=== PATIENT | female | born 1985 | race Caucasian/White ===

== ENCOUNTER 2019-08-10 11:56 | Emergency (ER) | payer OTHER ==
--- OUTSIDE RECORDS SUMMARY | 2019-08-10 11:57 | XMS REPORT ---
:1985 Author Organization eClinicalWorks Care Team Providers Name Role Phone Estella Jones Provider Role Unavailable Allergies, Adverse Reactions, Alerts Substance Reaction Event Type N.K.D.A. 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, unspecified whether recurrent Problem Encounter for general adult medical Z00.01 Active examination with abnormal findings Problem Acute bilateral low back pain M54.5 Active without sciatica Problem Cough R05 Active Assessment Cough R05 Active Problem Chronic GERD K21.9 Active Problem 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
[2019-08-10] MEDS ORDERED: HYDROCODONE/APAP 10/325 TAB ONE (13:06)
[2019-08-10] MEDS ORDERED: DIAZEPAM 5 MG TABLET ONE (13:06)
[2019-08-10] MEDS ORDERED: predniSONE 20 MG TAB ONE (13:07)
--- NOTE | 2019-08-10 13:45 | EDPHYS ---
Physician Documentation [facility] Name: Tika Ceron Age: 33 yrs Sex: Female : 1985 Arrival Date: 08/10/2019 Time: 12:04 Bed 23 Private MD: ED Physician Lencho Macdonald HPI: 08/10 12:56 This 33 yrs old Female presents to ER via Ambulatory with complaints of Back jmm Pain. 12:56 The patient presents with pain that is acute. Onset: The symptoms/episode jmm began/occurred acutely. The pain radiates to the right leg. Modifying factors: The patient symptoms are alleviated by nothing, the patient symptoms are aggravated by movement. This is a 33 year old female with no chronic medical conditions that presents to the ED with complaints of lower back pain which developed after a coughing fit. Patient states pain radiates down the right leg. Denies bowel or urinary issues. . 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 - Social history:: Smoking status: Patient uses tobacco products, smokes one-half pack cigarettes per day. - Ebola Screening: : Patient negative for fever greater than or equal to 101.5 degrees Fahrenheit, and additional compatible Ebola Virus Disease symptoms Patient denies exposure to infectious person Patient denies travel to an Ebola-affected area in the 21 days before illness onset No symptoms or risks identified at this time. ROS: 12:56 Cardiovascular: Negative for chest pain, palpitations, and edema, Abdomen/GI: Negative jmm for abdominal pain, nausea, vomiting, diarrhea, and constipation. 12:56 Respiratory: Positive for cough. 12:56 Back: Positive for pain at rest. 12:56 MS/extremity: Positive for pain. 12:56 All other systems are negative. Exam: 12:56 Head/Face: atraumatic. Eyes: EOMI, no conjunctival erythema appreciated ENT: Moist jmm Mucus Membranes Neck: Trachea midline, Supple Chest/axilla: Normal chest wall appearance and motion. Cardiovascular: Regular rate and rhythm. No edema appreciated Respiratory: Normal respirations, no respiratory distress appreciated Abdomen/GI: Non distended, soft 12:56 Skin: General appearance color normal MS/ Extremity: Moves all extremities, no obvious deformities appreciated, no edema noted to the lower extremities Neuro: Awake and alert, normal gait Psych: Behavior is normal, Mood is normal, Patient is cooperative and pleasant 12:56 Constitutional: The patient appears alert, awake, uncomfortable. 12:56 Back: muscle spasm, is appreciated in the right low back. Vital Signs: 12:12 BP 131 / 94; Pulse 97; Resp 16; Temp 97.4; Pulse Ox 98% on R/A; Weight 76.66 kg; Height iw 5 ft. 8 in. (172.72 cm); Pain 9/10; 13:21 BP 136 / 89; Pulse 84; Resp 16; Pulse Ox 99% on R/A; sr5 14:00 Pulse 81; Resp 16; Pulse Ox 98% on R/A; Pain 3/10; sr5 12:12 Body Mass Index 25.70 (76.66 kg, 172.72 cm) iw MDM: 12:51 Patient medically screened. [facility] 13:44 Data reviewed: vital signs, nurses notes. Counseling: I had a detailed discussion with zeeshan the patient and/or guardian regarding: the historical points, exam findings, and any diagnostic results supporting the discharge/admit diagnosis, lab results, the need for outpatient follow up, to return to the emergency department if symptoms worsen or persist or if there are any questions or concerns that arise at home. ED course: Pain relieved in the ED. patient advised to follow up with pcp and otherwise given strict return precautions. patient understood and agrees with the plan of care. I do not suspect cord compression or cauda equina. . 08/10 13:23 Order name: Urine Dipstick--Ancillary (enter results); Complete Time: 13:47 sr5 08/10 13:23 Order name: Urine --Ancillary (enter results); Complete Time: 13:47 sr5 08/10 12:54 Order name: Urine Dipstick-Ancillary (obtain specimen); Complete Time: 13:21 [facility] 08/10 12:54 Order name: Urine Test (obtain specimen); Complete Time: 13:21 [facility] Administered Medications: 13:09 Drug: [place] 10 mg-325 mg 1 tabs Route: PO; sr5 14:18 Follow up: Response: Pain is decreased sr5 13:09 Drug: Valium 5 mg Route: PO; sr5 14:18 Follow up: Response: Pain is decreased sr5 13:09 Drug: predniSONE 60 mg Route: PO; sr5 14:17 Follow up: Response: No adverse reaction sr5 Disposition: 08/11 07:19 Co-signature as Attending Physician, Lencho Macdonald MD I agree with the assessment and kdr plan of care. Disposition: 08/10/19 13:45 Discharged to Home. Impression: Muscle spasm of back, Sciatica, right side. - Condition is Stable. - Discharge Instructions: Muscle Cramps and Spasms, Sciatica. - Prescriptions for Ultracet 37.5- 325 mg Oral Tablet - take 1 tablet by ORAL route every 6 hours - for up to 5 days; do not exceed 8 tablets per day.; 12 tablet. Zanaflex 4 mg Oral Tablet - take 1 tablet by ORAL route every 8 hours As needed; 20 tablet. Prednisone 20 mg Oral Tablet - take 3 tablet by ORAL route once daily for 5 days; 15 tablet. - Medication Reconciliation Form, Thank You Letter, Antibiotic Education, Prescription Opioid Use, Work release form form. - Follow up: Private Physician; When: 2 - 3 days; Reason: Recheck today's complaints, Continuance of care, Re-evaluation by your physician. Signatures: Dispatcher [employer] EDMS Lencho Macdonald MD MD kdr Mickail, Joel, PA PA jmm Williams, Irene, RN Dmitri Maynard RN RN sr5 Corrections: (The following items were deleted from the chart) 08/10 12:55 12:53 IV Saline Lock ordered. zeeshan byers 13:48 13:44 ED course: Pain relieved in the ED. patient advised to follow up with pcp and jmm otherwise given strict return precautions. patient understood and agrees with the plan of care. . zeeshan 14:01 13:45 08/10/2019 13:45 Discharged to Home. Impression: Muscle spasm of back; Sciatica, sr5 right side. Condition is Stable. Forms are Medication Reconciliation Form, Thank You Letter, Antibiotic Education, Prescription Opioid Use. Follow up: Private Physician; When: 2 - 3 days; Reason: Recheck today's complaints, Continuance of care, Re-evaluation by your physician. zeeshan
--- NOTE | 2019-08-10 13:45 | ER ---
Nurse's Notes [facility] Name: Tika Ceron Age: 33 yrs Sex: Female : 1985 Arrival Date: 08/10/2019 Time: 12:04 Bed 23 Private MD: Diagnosis: Muscle spasm of back;Sciatica, right side Presentation: 08/10 12:10 Presenting complaint: Patient states: thinks she pulled muscle in lower back from iw coughing, has been on albuterol and muscle relaxer for back , and pain not improving. Transition of care: patient was not received from another setting of care. Onset of symptoms was July 24, 2019. Risk Assessment: Do you want to hurt yourself or someone else? Patient reports no desire to harm self or others. Initial Sepsis Screen: Does the patient meet any 2 criteria? No. Patient's initial sepsis screen is negative. Does the patient have a suspected source of infection? No. Patient's initial sepsis screen is negative. Care prior to arrival: None. 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 - Social history:: Smoking status: Patient uses tobacco products, smokes one-half pack cigarettes per day. - Ebola Screening: : Patient negative for fever greater than or equal to 101.5 degrees Fahrenheit, and additional compatible Ebola Virus Disease symptoms Patient denies exposure to infectious person Patient denies travel to an Ebola-affected area in the 21 days before illness onset No symptoms or risks identified at this time. Screenin:10 Abuse screen: Denies threats or abuse. Nutritional screening: No deficits noted. sr5 Tuberculosis screening: No symptoms or risk factors identified. Fall Risk None identified. Assessment: 13:10 Reassessment: Pt ambulated to restroom to collect UA. Pain: Complains of pain in right sr5 low back and right leg. Neuro: Level of Consciousness is awake, alert, obeys commands, Oriented to person, place, time, situation, Motion Picture Scene Builder are equal bilaterally Moves all extremities. Gait is slow to change positions, groans, bent forward at hips. Cardiovascular: No deficits noted. Respiratory: No deficits noted. GI: No signs and/or symptoms were reported involving the gastrointestinal system. : No signs and/or symptoms were reported regarding the genitourinary system. EENT: No signs and/or symptoms were reported regarding the EENT system. Derm: No signs and/or symptoms reported regarding the dermatologic system. Musculoskeletal: Reports reports pulled muscle in back. 14:00 Reassessment: Pt remains AA\\T\\Ox4, equal unlabored resp, skin warm/dry/nc, reports pain sr5 "much better". Steady gait out of ER with friend. Vital Signs: 12:12 BP 131 / 94; Pulse 97; Resp 16; Temp 97.4; Pulse Ox 98% on R/A; Weight 76.66 kg; Height iw 5 ft. 8 in. (172.72 cm); Pain 9/10; 13:21 BP 136 / 89; Pulse 84; Resp 16; Pulse Ox 99% on R/A; sr5 14:00 Pulse 81; Resp 16; Pulse Ox 98% on R/A; Pain 3/10; sr5 12:12 Body Mass Index 25.70 (76.66 kg, 172.72 cm) iw ED Course: 12:04 Patient arrived in ED. mr 12:12 Triage completed. iw 12:12 Arm band placed on. iw 12:31 Dmitri Kovacs, RN is Primary Nurse. sr5 12:32 Julio Shaffer PA is PHCP. [facility] 12:32 Lencho Macdonald MD is Attending Physician. [facility] 13:10 Patient has correct armband on for positive identification. Placed in gown. Bed in low sr5 position. Call light in reach. 13:10 No provider procedures requiring assistance completed. Patient did not have IV access sr5 during this emergency room visit. 13:10 Urine collected: clean catch specimen, clear. sr5 Administered Medications: 13:09 Drug: [place] 10 mg-325 mg 1 tabs Route: PO; sr5 14:18 Follow up: Response: Pain is decreased sr5 13:09 Drug: Valium 5 mg Route: PO; sr5 14:18 Follow up: Response: Pain is decreased sr5 13:09 Drug: predniSONE 60 mg Route: PO; sr5 14:17 Follow up: Response: No adverse reaction sr5 Outcome: 13:45 Discharge ordered by MD. byers 14:00 Discharged to home ambulatory, with family. sr5 14:00 Condition: stable 14:00 Discharge instructions given to patient, friend, Instructed on discharge instructions, follow up and referral plans. medication usage, Demonstrated understanding of instructions, follow-up care, medications, Prescriptions given X 3. 14:01 Patient left the ED. sr5 Signatures: Julio Shaffer PA PA jmm Rivera, Mary mr Williams, Irene, RN RN Dmitri Muniz RN RN sr5
[2019-08-10 13:47] LABS: Urine Blood NEGATIVE (NEG); Urine Glucose NEGATIVE (NEG); Urine Protein NEGATIVE (NEG); Urine Specific Gravity 1.025 (1.005-1.030); Urine pH 5.5 (5.0-7.0)
[2019-08-10 14:15] VITALS: TEMP 97.4
[2019-08-10 14:16] VITALS: BP 136/89; O2SAT 99
== END 2019-08-10 14:01 | disposition home or self-care (01) ==
LOC: ER 11:56
DX: M54.31 Sciatica, right side (principal); M62.830 Muscle spasm of back; F17.210 Nicotine dependence, cigarettes, uncomplicated
CPT/HCPCS: 81025; 81003; 99283; J7512

== ENCOUNTER 2019-11-26 07:17 | Day surgery (SDC) | payer BC ==
--- OUTSIDE RECORDS SUMMARY | 2019-11-26 07:36 | XMS REPORT ---
[...] End Status Dosage System Date Date Omeprazole [facility] 25411277379 40 MG Orally Aug 08, Active 1 capsule Once a day 2018 30 minutes before morning meal Methocarbamol ND 05991999314 500 MG Orally Aug 08, Aug 15, Active 1 tablet every 8 hrs 2018 2019 for muscle pain Albuterol Sulfate ND 35728064738 0.63 MG/3ML Aug 08, Active 3 ml as Inhalation 2019 needed every 6 hrs Results No Known Results Summary Purpose eClinicalWorks Submission
--- OUTSIDE RECORDS SUMMARY | 2019-11-26 07:36 | XMS REPORT ---
:1985 Author Organization eClinicalWorks Care Team Providers Name Role Phone Estella Jones Provider Role Unavailable Allergies, Adverse Reactions, Alerts Substance Reaction Event Type N.K.D.A. 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, unspecified whether recurrent Problem Cough R05 Active Problem Acute bilateral low back pain M54.5 Active without sciatica Medications Medication Code Code Instructions Start End Status Dosage System Date Date Albuterol Sulfate ND 90864592467 0.63 MG/3ML Aug 08, Active 3 ml as Inhalation 2019 needed every 6 hrs Omeprazole ND 54348855087 40 MG Orally Aug 08, Active 1 capsule Once a day 2019 30 minutes before morning meal Methocarbamol ND 06112018049 500 MG Orally Aug 08, Aug 15, Active 1 tablet every 8 hrs 2018 2018 for muscle pain Albuterol Sulfate ND 35411399079 108 (90 Base) Aug 15, Active 2 puffs as HFA MCG/ACT 2019 needed Inhalation every 6 hrs Results No Known Results Summary Purpose eClinicalWorks Submission
--- OUTSIDE RECORDS SUMMARY | 2019-11-26 07:36 | XMS REPORT ---
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
--- OUTSIDE RECORDS SUMMARY | 2019-11-26 07:36 | XMS REPORT ---
:1985 Author Organization eClinicalWorks Care Team Providers Name Role Phone Estella Jones Provider Role Unavailable Allergies, Adverse Reactions, Alerts Substance Reaction Event Type N.K.D.A. Info Not Available Non Drug Allergy Problems Problem Type Condition Code Onset Dates Condition Status Assessment Gynecologic exam normal Z01.419 Active Problem Current severe episode of major [...] Z00.01 Active examination with abnormal findings Medications Medication Code Code Instructions Start End Status Dosage System Date Date Clonazepam ND 03883617191 0.25 MG Orally Active 1 tablet as needed BuPROPion HCl ND 38163511581 75 MG Orally Active 1 tablet once a day Albuterol ND 40807138021 0.63 MG/3ML Aug 08, Active 3 ml as Sulfate Inhalation 2019 needed every 6 hrs Trazodone HCl ND 21352612196 50 MG Orally Active 1 tablet Once a day at bedtime Albuterol [facility] 36472119868 108 (90 Base) Aug 15, Active 2 puffs as Sulfate HFA MCG/ACT 2019 needed Inhalation every 6 hrs Citalopram ND 13522237828 20 MG Orally Active 1 tablet Hydrobromide Once a day Omeprazole ND 83788165109 40 MG Orally Aug 08, Active 1 capsule Once a day 2019 30 minutes before morning meal Results No Known Results Summary Purpose eClinicalWorks Submission
--- OUTSIDE RECORDS SUMMARY | 2019-11-26 07:37 | XMS REPORT ---
:1985 Author Organization eClinicalWorks Care Team Providers Name Role Phone Estella Jones Provider Role Unavailable Allergies, Adverse Reactions, Alerts Substance Reaction Event Type N.K.D.A. Info Not Available Non Drug Allergy Problems Problem Type Condition Code Onset Dates Condition Status Problem Current severe episode of major F32.2 Active depressive disorder without psychotic features, unspecified whether recurrent Problem Acute bilateral low back pain M54.5 Active without sciatica Problem Chronic GERD K21.9 Active Assessment Atypical squamous cells cannot R87.611 Active exclude high grade squamous intraepithelial lesion on cytologic smear of cervix (ASC-H) Assessment Hypercholesteremia E78.00 Active Problem Atypical squamous cells cannot R87.611 Active exclude high grade squamous intraepithelial lesion on cytologic smear of cervix (ASC-H) Problem Gynecologic exam normal Z01.419 Active Problem Hypercholesteremia E78.00 Active Problem Cough R05 Active Problem Encounter for general adult medical Z00.01 Active examination with abnormal findings Problem Pure hypercholesterolemia E78.00 Active Problem Smoker F17.200 Active Medications Medication Code Code Instructions Start End Status Dosage System Date Date BuPROPion HCl [facility] 90138758298 75 MG Orally Active 1 tablet once a day Pravastatin ND 38964513836 10 MG Orally Oct 03, Active 1 tablet Sodium Once a day 2019 Albuterol [facility] 05513604079 108 (90 Base) Aug 15, Active 2 puffs as Sulfate HFA MCG/ACT 2018 needed Inhalation every 6 hrs Albuterol ND 23194803048 0.63 MG/3ML Aug 08, Active 3 ml as Sulfate Inhalation 2019 needed every 6 hrs Clonazepam ND 08576492178 0.25 MG Orally Active 1 tablet as needed Trazodone HCl ND 37907193967 50 MG Orally Active 1 tablet Once a day at bedtime Omeprazole ND 55590615307 40 MG Orally Aug 08, Active 1 capsule Once a day 2018 30 minutes before morning meal Citalopram ND 54238860683 20 MG Orally Active 1 tablet Hydrobromide Once a day Results No Known Results Summary Purpose eClinicalWorks Submission
--- OUTSIDE RECORDS SUMMARY | 2019-11-26 07:37 | XMS REPORT ---
[...] sciatica Problem Chronic GERD K21.9 Active Assessment Chronic GERD K21.9 Active Problem Atypical squamous cells cannot R87.611 Active exclude high grade squamous intraepithelial lesion on cytologic smear of cervix (ASC-H) Problem Gynecologic exam normal Z01.419 Active Problem Hypercholesteremia E78.00 Active Problem Cough R05 Active Problem Encounter for general adult medical Z00.01 Active examination with abnormal findings Problem Pure hypercholesterolemia E78.00 Active Problem Smoker F17.200 Active Medications Medication Code System Code Instructions Start End Date Status Dosage Date Omeprazole [facility] 96143292591 40 MG Orally Aug 08, Active 1 capsule Once a day 2018 30 minutes before morning meal Results No Known Results Summary Purpose eClinicalWorks Submission
[2019-11-26] MEDS ORDERED: Ringers Lactate 1,000 ML IV ONE (07:40)
[2019-11-26] MEDS ORDERED: LIDOCAINE 1% W/EPI 1:100,000 MDV 20 ML VIAL ONE ×2 (07:45→09:41)
[2019-11-26] MEDS ORDERED: ACETIC ACID 0.25% IRRIG IRR ONE (08:00)
[2019-11-26] MEDS ORDERED: NA CHLORIDE 0.9% 0 ML IV ONE (08:03)
[2019-11-26] MEDS ORDERED: VASOPRESSIN 20 UNIT/ML VIAL ONE (08:04)
[2019-11-26] MEDS ORDERED: LIDOCAINE 2% MPF 5 ML VIAL ONE (08:19)
[2019-11-26] MEDS ORDERED: FENTANYL CITR 100 MCG/2 ML ONE ×2 (08:19→09:17)
[2019-11-26] MEDS ORDERED: propofoL 200 MG/20 ML VIAL IV ONE ×2 (08:19→09:17)
[2019-11-26] MEDS ORDERED: MIDAZOLAM HCL 2 MG/2 ML INJ ONE ×2 (08:19→09:17)
[2019-11-26] MEDS ORDERED: LIDOCAINE 1% MPF 5 ML VIAL ONE (09:17)
[2019-11-26] MEDS ORDERED: KETOROLAC 30 MG/ML INJ ONE (09:44)
[2019-11-26] MEDS ORDERED: ONDANSETRON 4 MG/2 ML VIAL ONE ×2 (10:01→11:07)
[2019-11-26] MEDS: MEPERIDINE HCL 25 MG/ML SYR ONE ×2 (11:05→11:11)
[2019-11-26] MEDS: MORPHINE 4 MG/ML SYR ONE ×2 (11:08→11:14)
[2019-11-26 11:17] VITALS: O2SAT 97
[2019-11-26 11:55] VITALS: BP 123/84; TEMP 97.6
[2019-11-26] MEDS ORDERED: HYDROCODONE/APAP 5/325 MG TAB ONE (12:02)
--- NOTE | 2019-11-26 20:35 | OP ---
Date of Procedure: 11/26/2019 Surgeon: Terri Giron MD Preoperative Diagnosis: Cervical intraepithelial neoplasia grade 3 with positive endocervical curett age. Postoperative Diagnosis: Cervical intraepithelial neoplasia grade 3 with positive endocervical curet tage. Procedure Performed: Cervical colposcopy, cold knife cone and endocervical curettage. Anesthesia: General with LMA. Specimens: Cold cone biopsy with endocervical curettage stitch at 12 o'clock and a small outer vanessa n at 12 o'clock position after the colon was excised. Complications: None. Drains: None. Condition: Stable. Indications: The patient is a 34-year-old with high-grade CRYSTAL Pap smear. Colposcopy in the office w as performed. She had a lesion at 12 o'clock that was thick, acetowhite, and the lesion was extendin g into the cervical canal. The inner extent was not visible. At 3 o'clock position, there was mild acetowhite epithelium. The biopsies were consistent with observation and colposcopy. 12 o'clock was EDUARDO 3 and 3 o'clock was a EDUARDO 1. The endocervical curettage was positive; however, suspicion is slava t the extension of the lesion at 12 o'clock was the reason why the ECC was positive. So, the patient was counseled on her options of either a LEEP electroexcision procedure or a cold knife cone. All t he benefits and risks, including the risks of with regard to subsequent pregnancies with cervical ins ufficiency, labor and loss were all reviewed with the patient. 6% to 8% risk was quo kae for post cold knife cone risk. Then, she was offered a LEEP procedure in contrast to t hat. The patient proceeded to consent for a cold knife cone, so she was consented and taken to the O R. She is a smoker. Cessation was reviewed with the patient. Description Of Operation: After re-consenting the patient in the preop, she was taken back to OR, pl aced in supine fashion on the operating table. General anesthesia given, placed in a dorsal lithotom y position using Julian stirrups. Colposcopy was performed with a speculum. Acetic acid was applied. It was difficult to visualize the aceto white epithelium due to the most recent biopsy and the heal ing subsequent to it. However, when dyed with Lugol iodine, it was very clear the outer margin of th e transformation zone. Once the cervix was sounded for length, it was found to be 4 cm, then plan wa s made to attempt a depth of 2 cm or less and be able to take a cone in the direction of the canal. Prep with Betadine was done at 3 and 9 o'clock positions after the paracervical block with 1% lidocai ne mixed with 1:100,000 epinephrine, 20 cc was injected. 0 Vicryl sutures were placed, stay sutures, for hemostasis and for retraction, placed in those positions and tied down and held with hemostats. Then, the cold knife cone knife handle was taken with an 11 blade and the incision started at 3 o'cl ock and taken all the way around in a circumferential fashion paying attention to the direction of th e cervical canal. The cone was performed. The base of the cone was severed with the help of a knife and Tereso scissors. This way is labeled as dictated 12 o'clock with a silk stitch; and then out er margin at 12 o'clock, I took a small outer piece of cervix just to make sure that this margin was clear. All these were placed in a specimen cup. There was good hemostasis at the base. 0 Vicryl amaya ture was taken on a CT 1 needle and using the Lecere needle ambulance driver paramedic circumferential running locked mod ified Sturmdorf stitch was placed and this was tied at 3 o'clock. The base of the cone was then visu alized. Good hemostasis was ensured. ECC was performed with a Kevorkian curette and endocervical br ush was used to collect the rest of the specimen. Then, astringent was placed with the help of Scope ttes on the base of the cone for 1 minute each. There was excellent hemostasis after this was done a nd removed. The vaginal area was cleaned up. Speculum removed. Instrument, needle and sponge count s were done and were correct at the end of the case. The stay sutures were trimmed with short tails and left in place. She was recovered from anesthesia and taken to PACU in stable condition. She will follow up with me in 1 albert NAGEL/CORI Voice ID: [id number] Report ID: [id number]
== END 2019-11-26 12:42 | disposition home or self-care (01) ==
LOC: OR 07:17
PROVIDERS: ATTEND Obstetrics & Gynecology
PROC: 0UBC8ZX Excision of Cervix, Via Natural or Artificial Opening Endoscopic, Diagnostic (ICD-10-PCS; principal; 2019-11-26 08:30)
DX: D06.0 Carcinoma in situ of endocervix (principal); N94.6 Dysmenorrhea, unspecified; K21.9 Gastro-esophageal reflux disease without esophagitis; F41.9 Anxiety disorder, unspecified; F32.9 Major depressive disorder, single episode, unspecified; F17.210 Nicotine dependence, cigarettes, uncomplicated; Z83.3 Family history of diabetes mellitus; Z82.3 Family history of stroke
CPT/HCPCS: 36415; 84703; 88305; 88307; 57520; J2704; J2250; J3010; J2175; J7120; J2405 ×2

== ENCOUNTER 2019-12-31 09:49 | Emergency (ER) | payer BC ==
--- OUTSIDE RECORDS SUMMARY | 2019-12-31 09:50 | XMS REPORT ---
:1985 Author Organization [employer] Care Team Providers Name Role Phone Estella Jones Provider Role Unavailable Allergies, Adverse Reactions, Alerts Substance Reaction Event Type N.K.D.A. Info Not Available Non Drug Allergy Problems Problem Type Condition Code Onset Dates Condition Statu s Assessment Encounter for general adult medical Z00.01 [...] End Status Dosage System Date Date Omeprazole ND 66089129738 40 MG Orally Aug 08, Active 1 ca psule Once a day 2018 30 minutes before morning meal Methocarbamol ND 74495686491 500 MG Orally Aug 08, Aug 15, Active 1 tablet every 8 hrs 2018 2019 for muscle pain Albuterol Sulfate ND 48402791697 0.63 MG/3ML Aug 08, Active 3 ml as Inhalation 2019 needed every 6 hrs Results No Known Results Summary Purpose eClinicalWorks Submission
--- OUTSIDE RECORDS SUMMARY | 2019-12-31 09:51 | XMS REPORT ---
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, unspecified whether recurrent Problem Acute bilateral low back pain M54.5 Active without sciatica Problem Chronic GERD K21.9 Active Assessment Chronic GERD K21.9 Active Problem Atypical squamous cells cannot R87.611 Active exclude high grade squamous intraepithelial lesion on cytologic smear of cervix (ASC-H) Problem Gynecologic exam normal Z01.419 Acti ve Problem Hypercholesteremia E78.00 Active Problem Cough R05 Active Problem Encounter for general adult medical Z00.01 Active examination with abnormal findings Problem Pure hypercholesterolemia E78.00 Ac tive Problem Smoker F17.200 Active Medications Medication Code System Code Instructions Start End Date Status Dos age Date Omeprazole [facility] 72283662135 40 MG Orally Aug 08, Active 1 ca psule Once a day 2018 30 minutes before morning meal Results No Known Results Summary Purpose eClinicalWorks Submission
--- OUTSIDE RECORDS SUMMARY | 2019-12-31 09:51 | XMS REPORT ---
:1985 Author Organization e[employer]Works Care Team Providers Name Role Phone Estella Jones Provider Role Unavailable Allergies, Adverse Reactions, Alerts Substance Reaction Event Type N.K.D.A. Info Not Available Non Drug Allergy Problems Problem Type Condition Code Onset Dates Condition Statu s Assessment Smoker F17.200 Active Assessment Pure hypercholesterolemia E78.00 Ac tive Problem Pure hypercholesterolemia E78.00 Ac tive Problem Encounter for general adult medical Z00.01 [...] Status Dosage System Date Date Albuterol Sulfate [facility] 91410587689 0.63 MG/3ML Aug 08, Active 3 ml as Inhalation 2019 needed every 6 hrs Omeprazole NDC 04699439309 40 MG Orally Aug 08, Active 1 ca psule Once a day 2019 30 minutes before morning meal Methocarbamol ND 62813950123 500 MG Orally Aug 08, Aug 15, Active 1 tablet every 8 hrs 2018 2019 for muscle pain Albuterol Sulfate ND 66464332510 108 (90 Base) Aug 15, Acti ve 2 puffs as HFA MCG/ACT 2019 needed Inhalation every 6 hrs Results No Known Results Summary Purpose eClinicalWorks Submission
--- OUTSIDE RECORDS SUMMARY | 2019-12-31 09:51 | XMS REPORT ---
:1985 Author Organization [facility] t Address [address] [place] [address] Care Team Providers Name Role Phone Unavailable Unavailable Unavailable Problems Condition Condition Condition Status Onset Resolution Last Treatin g Comments Name Details Category Date Date Treatment Clinician Date Encounter Encounter Problem Active for general for general adult adult medical medical examination examination with with abnormal abnormal findings findings Chronic Chronic Diagnosis Active GERD GERD Acute Acute Problem Active bilateral bilateral low back low back pain pain without without sciatica sciatica Current Current Problem Active severe severe episode of episode of major major depressive depressive disorder disorder without without psychotic psychotic features, features, unspecified unspecified whether whether recurrent recurrent Cough Cough Problem Active Smoker Smoker Problem Active Pure Pure Problem Active hypercholes hypercholes terolemia terolemia Gynecologic Gynecologic Problem Active exam normal exam normal Atypical Atypical Problem Active squamous squamous cells cells cannot cannot exclude exclude high grade high grade squamous squamous intraepithe intraepithe lial lesion lial lesion on on cytologic cytologic smear of smear of cervix cervix (ASC-H) (ASC-H) Allergies, Adverse Reactions, Alerts This patient has no known allergies or adverse reactions. Medications Ordered Filled Start Stop Current Ordering Indication Dosage Frequency Signature Comments Components Medication Medication Date Date Medication? Clinician (SIG) Name Name Omeprazole Omeprazole 2018-09 Yes Estella 1 capsul e 2-05 Jones 30 minutes 00:00: before 00 morning meal Encounters Start End Encounter Admission Attending Care Care Encounter Date/Time Date/Time Type Type Clinicians Facility Department ID 2019-10-08 2019-10-08 [facility] [id number] 13:23:00 13:23:00 [facility] Medicine Medicine 2019 2019 [facility] [id number] 13:00:00 13:00:00 [facility] Medicine Medicine 2019-10-01 2019-10-01 [facility] [id number] 15:51:00 15:51:00 [facility] 2019-09-24 2019-09-24 [facility] [id number] 15:00:00 15:00:00 [facility] 2019-08-15 2019-08-15 [facility] [id number] 15:20:00 15:20:00 [facility] 2019-08-08 2019-08-08 [facility] [id number] 11:20:00 11:20:00 [facility]
--- OUTSIDE RECORDS SUMMARY | 2019-12-31 09:51 | XMS REPORT ---
[...] Status Dosage System Date Date BuPROPion HCl ND 58491972349 75 MG Orally Active 1 tablet once a day Pravastatin ND 54778961261 10 MG Orally Oct 03, Active 1 t ablet Sodium Once a day 2019 Albuterol [facility] 06605472508 108 (90 Base) Aug 15, Active 2 pu ffs as Sulfate HFA MCG/ACT 2018 needed Inhalation every 6 hrs Albuterol ND 39287728567 0.63 MG/3ML Aug 08, Active 3 ml a s Sulfate Inhalation 2018 needed every 6 hrs Clonazepam ND 78353322950 0.25 MG Orally Active 1 tablet as needed Trazodone HCl ND 72034665131 50 MG Orally Active 1 tablet Once a day at bedtime Omeprazole ND 43280936150 40 MG Orally Aug 08, Active 1 ca psule Once a day 2018 30 minutes before morning meal Citalopram ND 82603530424 20 MG Orally Active 1 ta blet Hydrobromide Once a day Results No Known Results Summary Purpose eClinicalWorks Submission
--- OUTSIDE RECORDS SUMMARY | 2019-12-31 09:51 | XMS REPORT ---
:1985 Author Organization eClinicalWorks Care Team Providers Name Role Phone Estella Jones Provider Role Unavailable Allergies, Adverse Reactions, Alerts Substance Reaction Event Type N.K.D.A. 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, unspecified whether recurrent Problem Pure hypercholesterolemia E78.00 Ac tive Problem Smoker F17.200 Active Problem Gynecologic exam normal Z01.419 Acti ve Problem Acute bilateral low back pain M54.5 Active without sciatica Problem Chronic GERD K21.9 Active Problem Cough R05 Active Problem Encounter for general adult medical Z00.01 Active examination with abnormal findings Medications Medication Code Code Instructions Start End Status Dosage System Date Date Clonazepam ND 00460285395 0.25 MG Orally Active 1 tablet as needed BuPROPion HCl ND 62955921437 75 MG Orally Active 1 tablet once a day Albuterol ND 62173636724 0.63 MG/3ML Aug 08, Active 3 ml a s Sulfate Inhalation 2019 needed every 6 hrs Trazodone HCl ND 95616790243 50 MG Orally Active 1 tablet Once a day at bedtime Albuterol [facility] 25507142131 108 (90 Base) Aug 15, Active 2 pu ffs as Sulfate HFA MCG/ACT 2019 needed Inhalation every 6 hrs Citalopram ND 76666219014 20 MG Orally Active 1 ta blet Hydrobromide Once a day Omeprazole ND 77861872220 40 MG Orally Aug 08, Active 1 ca psule Once a day 2019 30 minutes before morning meal Results No Known Results Summary Purpose eClinicalWorks Submission
[2019-12-31] MEDS ORDERED: NA CHLORIDE 0.9% 1,000 ML ONE (10:15)
[2019-12-31] MEDS ORDERED: ONDANSETRON 4 MG/2 ML VIAL ONE (10:15)
[2019-12-31 10:21] LABS: Absolute Lymphocytes (CBC) 1.2 K/uL (0.7-4.9); Basophils % 0.4 % (0-1.3); Hematocrit 45.3 % (36.0-45.0); Lymphocytes % 11.2 % (15.3-44.8); MPV 8.3 fL (7.6-11.3); RBC Red Blood Cell Count 4.79 M/uL (3.86-4.86)
[2019-12-31 10:40] LABS: ALT/SGPT 76 U/L (12-78); AST/SGOT 69 U/L (15-37); Albumin 4.2 g/dL (3.4-5.0); Alkaline Phosphatase 88 U/L (45-117); BUN Blood Urea Nitrogen 12 mg/dL (7-18); Bicarbonate 20 mmol/L (21-32); Bilirubin Direct 0.2 mg/dL (0-0.2); Bilirubin Total 0.6 mg/dL (0.2-1.0); Glucose Level 66 mg/dL (74-106); Lipase 71 U/L (73-393); Potassium 3.8 mmol/L (3.5-5.1); Protein, Total 7.7 g/dL (6.4-8.2); Sodium Level 137 mmol/L (136-145)
[2019-12-31] MEDS ORDERED: MORPHINE 4 MG/ML SYR ONE (11:06)
[2019-12-31 11:36] LABS: Urine Blood TRACE (NEG); Urine Glucose NEGATIVE (NEG); Urine Protein TRACE (NEG); Urine Specific Gravity >1.030 (1.005-1.030); Urine pH 5.5 (5.0-7.0)
--- NOTE | 2019-12-31 11:44 | RAD REPORT ---
EXAM DESCRIPTION: CT - Abdomen Pelvis W Contrast - 12/31/2019 11:12 am CLINICAL HISTORY: ABD PAIN, bilateral back pain, suprapubic pain, fever, prior COMPARISON: No comparisons TECHNIQUE: Biphasic, helical CT imaging of the abdomen and pelvis was performed following 100 ml non -ionic IV contrast. No oral contrast was administered. All CT scans are performed using dose optimization technique as appropriate and may include automated exposure control or mA/KV adjustment according to patient size. FINDINGS: No suspicious findings in the lung bases. Diffuse fatty infiltration of a normal size liver present. No focal liver lesion. No portal vein or h epatic vein abnormality seen. Spleen and pancreas show no suspicious findings. Gallbladder and biliar y tree are also without suspicious finding. Renal function is symmetric with no hydronephrosis. No pyelonephritis findings. No obstructing or non obstructing calculi identified. A 9 mm cyst is present in the lower pole left kidney. There is a 12 m illimeter exophytic mass in the lower pole kidney. This does not show a cyst attenuation value but ma y be a high protein content cyst. Bladder is fully contracted precluding accurate assessment of cysti tis. No bladder calculi. No adrenal abnormalities. Uterus shows no suspicious finding. No ovarian abnormality seen. No dilated bowel loops or bowel wall thickening. No active GI process identified. No free air, free f luid or inflammatory stranding. No hernia, mass or bulky lymphadenopathy. No acute bone findings seen. There is slight narrowing of the L5-S1 disc level with posterior endplat e spurring. IMPRESSION: No pyelonephritis or acute renal parenchymal process seen. Urinary bladder is fully cont racted precluding any evaluation of cystitis. A 12 millimeter exophytic mass projects from the lower pole of the left kidney. This is probably a hi gh protein content cysts. This can be further evaluated with follow-up outpatient sonography. Diffuse fatty infiltration of the liver. No significant GI finding identifiable. Mild enteritis ayoub ges can be CT occult.
--- NOTE | 2019-12-31 11:58 | ER ---
Nurse's Notes [facility] Name: Tika Ceron Age: 34 yrs Sex: Female : 1985 Arrival Date: 12/31/2019 Time: 09:52 Bed 7 Private MD: Diagnosis: Abdominal and pelvic pain Presentation: 12/30 09:58 Chief complaint: Patient states: sent by her PCP, stated she has been having levy back sv pain, suprapubic pain, n/v/d/chills, decreased urinary frequency, orange colored urine x 3-4 days. Had blood work done here yesterday. Coronavirus screen: Proceed with normal triage. Patient denies a cough. Patient denies shortness of breath or difficulty breathing. Patient reports a measured and/or subjective temperature greater than 100.4F. Patient denies travel on a cruise ship or to a country the [facility] currently lists as an affected area. Patient denies contact with known and/or suspected case of COVID-19. Ebola Screen: No symptoms or risks identified at this time. Initial Sepsis Screen: Does the patient meet any 2 criteria? HR > 90 bpm. No. Patient's initial sepsis screen is negative. Does the patient have a suspected source of infection? Yes: Dysuria/Frequency/Urgency/UTI. Risk Assessment: Do you want to hurt yourself or someone else? Patient reports no desire to harm self or others. Onset of symptoms was December 27, 2019. 09:58 Method Of Arrival: Ambulatory sv 09:58 Acuity: MONIQUE 3 sv Triage Assessment: 09:58 General: Appears in no apparent distress. uncomfortable, well developed, Behavior is sv calm, cooperative, appropriate for age. Pain: Complains of pain in suprapubic area, posterior aspect of right lateral abdomen and posterior aspect of left lateral abdomen Pain currently is 7 out of 10 on a pain scale. Pain began 3-4 days ago Is continuous. Neuro: Level of Consciousness is awake, alert, obeys commands, Oriented to person, place, time, situation, Gait is steady. Respiratory: Respiratory effort is even, unlabored, Respiratory pattern is regular, symmetrical. GI: Reports diarrhea, nausea, vomiting. : Reports pain in bilateral in suprapubic area in lower back with urination, decreased urinary frequency. Derm: Skin is pink, warm \T\ dry. Historical: - Allergies: 10:00 No Known Allergies; sv - PMHx: 10:00 None; sv - PSHx: 10:00 ; sv - Immunization history:: Adult Immunizations up to date. Screenin:01 Abuse screen: Denies threats or abuse. Denies injuries from another. Nutritional sv screening: No deficits noted. Tuberculosis screening: No symptoms or risk factors identified. Fall Risk None identified. Assessment: 11:07 Reassessment: Patient appears in no apparent distress at this time. No changes from sv previously documented assessment. Patient and/or family updated on plan of care and expected duration. Pain level reassessed. Patient is alert, oriented x 3, equal unlabored respirations, skin warm/dry/pink. 12:40 Reassessment: Patient appears in no apparent distress at this time. Patient and/or sv family updated on plan of care and expected duration. Pain level reassessed. Patient is alert, oriented x 3, equal unlabored respirations, skin warm/dry/pink. Vital Signs: 09:58 BP 126 / 100; Pulse 102; Resp 18; Temp 98.3(O); Pulse Ox 97% ; Weight 72.57 kg; Height sv 5 ft. 8 in. (172.72 cm); Pain 7/10; 10:45 BP 128 / 99; Pulse 97; Resp 18; Pulse Ox 100% ; sv 11:50 BP 122 / 88; Pulse 92; Resp 18; Pulse Ox 99% ; sv 09:58 Body Mass Index 24.33 (72.57 kg, 172.72 cm) sv ED Course: 09:52 Patient arrived in ED. ag5 09:53 Luke Garcia PA is PHCP. jr8 09:53 Eugene Salazar MD is Attending Physician. jr8 09:58 Martha Travis RN is Primary Nurse. sv 10:00 Triage completed. sv 10:00 Arm band placed on Patient placed in an exam room, on a stretcher, on pulse oximetry. sv 10:01 Nurse Practitioner and/or Physician Lead Welder to see patient. sv 10:01 Patient has correct armband on for positive identification. Bed in low position. Call sv light in reach. Pulse ox on. NIBP on. Door closed. Head of bed elevated. 10:05 Initial lab(s) drawn, by me, sent to lab. Inserted saline lock: 22 gauge in right kj1 antecubital area, using aseptic technique. Blood collected. 11:13 CT Abd/Pelvis - IV Contrast Only In Process Unspecified. EDMS 11:16 Patient moved back from CT. sv 12:44 No provider procedures requiring assistance completed. IV discontinued, intact, jl7 bleeding controlled, No redness/swelling at site. Pressure dressing applied. Administered Medications: 10:17 Drug: NS 0.9% 1000 ml Route: IV; Rate: 1000 ml; Site: right antecubital; sv 10:17 Drug: Zofran (Ondansetron) 4 mg Route: IVP; Site: right antecubital; sv 11:16 Follow up: Response: No adverse reaction sv 11:07 Drug: morphine 4 mg {Note: rass1.} Route: IVP; Site: right antecubital; sv Outcome: 11:57 Discharge ordered by . mine 12:44 Discharged to home ambulatory. jl7 12:44 Condition: stable 12:44 Discharge instructions given to patient, Instructed on discharge instructions, follow up and referral plans. Demonstrated understanding of instructions, follow-up care. 12:44 Patient left the ED. jl7 Signatures: Dispatcher [employer] EDMS Martha Travis RN RN sv Luke Garcia PA PA jr8 Leal, Jahala, RN RN jl7 Aristeo Loera Kandis kj1 Corrections: (The following items were deleted from the chart) 10:01 09:58 Chief complaint: Patient states: sent by her PCP, stated she has been having levy sv back pain, suprapubic pain, n/v/d/chills, decreased urinary frequency x 3-4 days. Had blood work done here yesterday. sv 10:01 09:58 Initial Sepsis Screen: Does the patient meet any 2 criteria? No. Patient's sv initial sepsis screen is negative. Does the patient have a suspected source of infection? Yes: Dysuria/Frequency/Urgency/UTI sv
--- NOTE | 2019-12-31 11:58 | EDPHYS ---
Physician Documentation [facility] Name: Tika Ceron Age: 34 yrs Sex: Female : 1985 Arrival Date: 12/31/2019 Time: 09:52 Bed 7 Private MD: ED Physician Eugene Salazar HPI: 12/30 10:07 This 34 yrs old Female presents to ER via Ambulatory with complaints of jr8 Abdominal Pain, Back Pain, Nausea/Vomiting/Diarrhea. 10:07 The patient presents with abdominal pain Right mid abdominal pain. Onset: The jr8 symptoms/episode began/occurred gradually, 1 week(s) ago. The symptoms radiate to right back. Associated signs and symptoms: Pertinent positives: nausea, vomiting, and diarrhea. The symptoms are described as stabbing. Modifying factors: The symptoms are alleviated by nothing, the symptoms are aggravated by nothing. Severity of pain: At its worst the pain was moderate in the emergency department the pain is unchanged. The patient has not experienced similar symptoms in the past. The patient has been recently seen by a physician:. Patient seen this week for difficulty urinating and abdominal pain that goes to back. Blood work completed which did not show any acute findings. Was empirically treated for STD and also put on cipro for possible UTI but still waiting on urine lab results. Stated that the pain and n/v/d is getting worse so was instructed to come to ED . Historical: - Allergies: 10:00 No Known Allergies; sv - PMHx: 10:00 None; sv - PSHx: 10:00 ; sv - Immunization history:: Adult Immunizations up to date. ROS: 10:07 Eyes: Negative for injury, pain, redness, and discharge, ENT: Negative for injury, jr8 pain, and discharge, Neck: Negative for injury, pain, and swelling, Cardiovascular: Negative for chest pain, palpitations, and edema, Respiratory: Negative for shortness of breath, cough, wheezing, and pleuritic chest pain, Back: Negative for injury and pain, MS/Extremity: Negative for injury and deformity, Skin: Negative for injury, rash, and discoloration, Neuro: Negative for headache, weakness, numbness, tingling, and seizure. 10:07 Abdomen/GI: Positive for abdominal pain, nausea, vomiting, and diarrhea, Negative for abdominal distension, anorexia, dysphagia, hematemesis, black/tarry stool, rectal pain, rectal bleeding, bowel incontinence, flatulence. 10:07 : Positive for urinary symptoms. Exam: 10:07 Eyes: Pupils equal round and reactive to light, extra-ocular motions intact. Lids and jr8 lashes normal. Conjunctiva and sclera are non-icteric and not injected. Cornea within normal limits. Periorbital areas with no swelling, redness, or edema. ENT: Nares patent. No nasal discharge, no septal abnormalities noted. Tympanic membranes are normal and external auditory canals are clear. Oropharynx with no redness, swelling, or masses, exudates, or evidence of obstruction, uvula midline. Mucous membranes moist. Neck: Trachea midline, no thyromegaly or masses palpated, and no cervical lymphadenopathy. Supple, full range of motion without nuchal rigidity, or vertebral point tenderness. No Meningismus. Cardiovascular: Regular rate and rhythm with a normal S1 and S2. No gallops, murmurs, or rubs. Normal PMI, no JVD. No pulse deficits. Respiratory: Lungs have equal breath sounds bilaterally, clear to auscultation and percussion. No rales, rhonchi or wheezes noted. No increased work of breathing, no retractions or nasal flaring. Back: No spinal tenderness. No costovertebral tenderness. Full range of motion. Skin: Warm, dry with normal turgor. Normal color with no rashes, no lesions, and no evidence of cellulitis. MS/ Extremity: Pulses equal, no cyanosis. Neurovascular intact. Full, normal range of motion. Neuro: Awake and alert, GCS 15, oriented to person, place, time, and situation. Cranial nerves II-XII grossly intact. Motor strength 5/5 in all extremities. Sensory grossly intact. Cerebellar exam normal. Normal gait. 10:07 Abdomen/GI: Inspection: abdomen appears normal, Bowel sounds: active, all quadrants, Palpation: soft, in all quadrants, nontender, in the suprapubic area, right lower quadrant and left lower quadrant, moderate abdominal tenderness, in the anterior aspect of right lateral abdomen and right mid abdominal pain, voluntary guarding, is not appreciated, involuntary guarding, is not appreciated, no appreciated organomegaly, Indicators: McBurney's point is not tender, Magana's sign is negative, Rovsing's sign is negative, Liver: tenderness, is not appreciated. Vital Signs: 09:58 BP 126 / 100; Pulse 102; Resp 18; Temp 98.3(O); Pulse Ox 97% ; Weight 72.57 kg; Height sv 5 ft. 8 in. (172.72 cm); Pain 7/10; 10:45 BP 128 / 99; Pulse 97; Resp 18; Pulse Ox 100% ; sv 11:50 BP 122 / 88; Pulse 92; Resp 18; Pulse Ox 99% ; sv 09:58 Body Mass Index 24.33 (72.57 kg, 172.72 cm) sv MDM: 09:53 Patient medically screened. jr8 11:55 Data reviewed: vital signs, nurses notes, lab test result(s), radiologic studies, CT jr8 scan. Data interpreted: Pulse oximetry: on room air is 100 %. Interpretation: normal. Counseling: I had a detailed discussion with the patient and/or guardian regarding: the historical points, exam findings, and any diagnostic results supporting the discharge/admit diagnosis, lab results, radiology results, the need for outpatient follow up, a family practitioner, an OB/Gyne specialist, to return to the emergency department if symptoms worsen or persist or if there are any questions or concerns that arise at home. ED course: Discussed with patient that there are no acute findings on CT. Mild elevation in WBC count. Recommend continuing on Cipro and to f/u with OB again. Patient has already been screened and prophylactically treated for STD. No sings of tubo-ovarian abscess or PID. If worse to come back . 12/30 10:04 Order name: Basic Metabolic Panel; Complete Time: 10:12/30 10:04 Order name: CBC with Diff; Complete Time: 10:12/30 10:04 Order name: Creatinine for Radiology; Complete Time: 10:12/30 10:04 Order name: Hepatic Function; Complete Time: 10:12/30 10:04 Order name: Lipase; Complete Time: :12/30 11:11 Order name: Urine Dipstick--Ancillary (enter results); Complete Time: 11:40 em1 12/30 10:04 Order name: IV Saline Lock; Complete Time: 10:12/30 10:04 Order name: Labs collected and sent; Complete Time: 10:28 10:04 Order name: Urine Test (obtain specimen); Complete Time: 11:07 jr8 12/30 10:43 Order name: CT Abd/Pelvis - IV Contrast Only; Complete Time: 11:54 jr8 12/30 11:11 Order name: Urine --Ancillary (enter results); Complete Time: 11:40 em1 12/30 10:04 Order name: Urine Dipstick-Ancillary (obtain specimen); Complete Time: 11:07 jr8 Administered Medications: 10:17 Drug: NS 0.9% 1000 ml Route: IV; Rate: 1000 ml; Site: right antecubital; sv 10:17 Drug: Zofran (Ondansetron) 4 mg Route: IVP; Site: right antecubital; sv 11:16 Follow up: Response: No adverse reaction sv 11:07 Drug: morphine 4 mg {Note: rass1.} Route: IVP; Site: right antecubital; sv Disposition: 12:55 Co-signature as Attending Physician, Eugene Salazar MD. rn Disposition: 12/31/19 11:57 Discharged to Home. Impression: Abdominal and pelvic pain. - Condition is Stable. - Discharge Instructions: Abdominal Pain, Adult. - Medication Reconciliation Form, Thank You Letter, Antibiotic Education, Prescription Opioid Use, Work release form form. - Follow up: Private Physician; When: 2 - 3 days; Reason: Recheck today's complaints, Continuance of care, Re-evaluation by your physician. - Problem is new. - Symptoms have improved. Signatures: Dispatcher [employer] Martha Trinidad RN Eugene Soares MD MD rn Roszak, Josh, PA PA jr8 Zoe Colby RN RN jl7 Corrections: (The following items were deleted from the chart) 12:44 11:57 12/31/2019 11:57 Discharged to Home. Impression: Abdominal and pelvic pain. jl7 Condition is Stable. Forms are Medication Reconciliation Form, Thank You Letter, Antibiotic Education, Prescription Opioid Use. Follow up: Private Physician; When: 2 - 3 days; Reason: Recheck today's complaints, Continuance of care, Re-evaluation by your physician. Problem is new. Symptoms have improved. jr8
[2019-12-31 12:51] VITALS: TEMP 98.3
[2019-12-31 12:52] VITALS: BP 128/99; O2SAT 100
== END 2019-12-31 12:44 | disposition home or self-care (01) ==
LOC: ER 09:49
DX: R10.2 Pelvic and perineal pain (principal); R11.2 Nausea with vomiting, unspecified
CPT/HCPCS: 85025; 80048; 36415; 81025; 80076; 81003; 83690; 74177; 96375; 96374; 99284; Q9967; J7030; J2405

== ENCOUNTER 2020-04-18 12:31 | Emergency (ER) | payer BC ==
--- OUTSIDE RECORDS SUMMARY | 2020-04-18 12:33 | XMS REPORT | Continuity of Care Document ---
:1985 Author Organization [facility] t Address [address] [place] [address] Care Team Providers Name Role Phone Unavailable Unavailable Unavailable Problems Condition Condition Condition Status Onset Resolution Last Treating Co mments Source Name Details Category Date Date Treatment Clinician Date Encounter Encounter Problem Active [facility] general general [facility]oria adult adult l medical medical Outpati examinatio examinatio en t n with n with Clinics abnormal abnormal findings findings Chronic Chronic Diagnosis [facility] Acute Acute Problem Active [facility] bilateral bilateral [facility] s - low back low back Memori a pain pain l without without Outpati sciatica sciatica ent Clinics Current Current Problem Active [facility] 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 without without Clinics psychotic psychotic features, features, unspecifie unspecifie d whether d whether recurrent recurrent Cough Cough Problem Active [facility] Smoker Smoker Problem Active [facility] Pure Pure Problem Active [facility]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 Medications Ordered Filled Start Stop Current Ordering Indication Dosage Frequency Signature Comments Components Source Medication Medication Date Date Medication? Clinician (SIG) Name Name Omeprazole Omeprazole 2018-09 Yes Estella [address] [facility] 2-05 Jones 30 minutes [facility] - 00:00: before [facility] 00 morning l meal Outpati ent Clinics Procedures This patient has no known procedures. Encounters Start End Encounter Admission Attending Care Care Encounter Source Date/Time Date/Time Type Type Clinicians Facility Department ID 2019-10-08 2019-10-08 Outpatient Guru Garveyt [id number] [facility] 13:23:00 13:23:00 [facility] Medicine Outpati ent Clinics 2019 2019 Outpatient [facility]uru [place] [id number] [facility] 13:00:00 13:00:00 [facility] Medicine Outpati ent Clinics 2019-10-01 2019-10-01 Outpatient Guru Garveyt [id number] [facility] 15:51:00 15:51:00 [facility] Medicine Outpati ent Clinics 2019-09-24 2019-09-24 Outpatient Guru Garveyt [id number] [facility] 15:00:00 15:00:00 [facility] Medicine Outpati ent Clinics 2019-08-15 2019-08-15 Outpatient Guru Garveyt [id number] [facility] 15:20:00 15:20:00 [facility] Medicine Outpati ent Clinics 2019-08-08 2019-08-08 Outpatient Guru [place] [id number] [facility] 11:20:00 11:20:00 [facility] Medicine Outpati ent Clinics Results This patient has no known results.
[2020-04-18 13:16] LABS: Urine Blood 2+ (NEG); Urine Glucose NEGATIVE (NEG); Urine Protein 2+ (NEG)
[2020-04-18 13:32] LABS: Urine Bacteria <20 /HPF (<20); Urine Culture Reflex Order NOT NEEDED; Urine Mucus LIGHT /HPF (NONE SEEN)
[2020-04-18] MEDS ORDERED: HYDROCODONE/APAP 5/325 MG TAB ONE (13:41)
[2020-04-18] MEDS ORDERED: LIDOCAINE 1% MPF 2 ML AMPULE ONE (13:41)
--- NOTE | 2020-04-18 13:41 | ER ---
Nurse's Notes [facility] Name: Tika Ceron Age: 34 yrs Sex: Female : 1985 Arrival Date: 04/18/2020 Time: 12:34 Bed 13 Private MD: Diagnosis: Tinea cruris;Urinary tract infection, site not specified Presentation: 04/18 12:44 Chief complaint: Patient states: Burning w/ urination and suprapubic pain x 4 days, ph seen by PCP yesterday and placed on antibiotics, has taken 1 dose this morning. States, " I just can't take the pain." Reports that PCP did not prescribe pain medication, also c/o rash under R breast, states, " She said it was a yeast infection and prescribed some cream and pills." denies fever, N/V/D. Coronavirus screen: Client denies travel out of the [place] in the last 14 days. At this time, the client does not indicate any symptoms associated with coronavirus-19. Ebola Screen: No symptoms or risks identified at this time. Initial Sepsis Screen: Does the patient meet any 2 criteria? No. Patient's initial sepsis screen is negative. Does the patient have a suspected source of infection? Yes: Dysuria/Frequency/Urgency/UTI. Risk Assessment: Do you want to hurt yourself or someone else? Patient reports no desire to harm self or others. Onset of symptoms. 12:44 Method Of Arrival: Ambulatory ph 12:44 Acuity: MONIQUE 4 ph Triage Assessment: 12:59 General: Appears in no apparent distress. comfortable, Behavior is calm, cooperative. ls4 Pain: Complains of pain in suprapubic area Pain currently is 8 out of 10 on a pain scale. Neuro: No deficits noted. Cardiovascular: No deficits noted. Respiratory: No deficits noted. : Reports burning with urination, since 4 days. 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 - Social history:: Smoking status: Patient reports the use of cigarette tobacco products, smokes one-half pack cigarettes per day. Screenin:49 Abuse screen: Denies threats or abuse. Denies injuries from another. Nutritional ph screening: No deficits noted. Tuberculosis screening: No symptoms or risk factors identified. Fall Risk None identified. Assessment: 13:00 Reassessment: Patient appears in no apparent distress at this time. Patient and/or ls4 family updated on plan of care and expected duration. Pain level reassessed. Patient is alert, oriented x 3, equal unlabored respirations, skin warm/dry/pink. 14:10 Reassessment: Patient appears in no apparent distress at this time. Patient and/or ls4 family updated on plan of care and expected duration. Pain level reassessed. Patient is alert, oriented x 3, equal unlabored respirations, skin warm/dry/pink. Vital Signs: 12:44 BP 134 / 83; Pulse 105; Resp 18; Temp 98.7(O); Pulse Ox 99% on R/A; Weight 68.49 kg; ph Height 5 ft. 8 in. (172.72 cm); Pain 8/10; 14:10 BP 127 / 86; Pulse 91; Resp 18; Temp 98.4; Pulse Ox 99% on R/A; ph 12:44 Body Mass Index 22.96 (68.49 kg, 172.72 cm) ph ED Course: 12:34 Patient arrived in ED. mr 12:44 Jerman Valentin NP is PHCP. pm1 12:44 Raffi Lynn MD is Attending Physician. pm1 12:47 Triage completed. ph 12:49 Arm band placed on Patient placed in an exam room, on a stretcher. ph 12:49 Patient has correct armband on for positive identification. Bed in low position. Call ph light in reach. Side rails up X 1. Pulse ox on. NIBP on. Door closed. Noise minimized. 12:59 Piper Marley, RN is Primary Nurse. ls4 13:00 No provider procedures requiring assistance completed. ls4 14:10 Patient did not have IV access during this emergency room visit. ph Administered Medications: 13:39 Drug: Rocephin (cefTRIAXone) 1 grams Route: IM; Site: left gluteus; ls4 14:10 Follow up: Response: No adverse reaction ls4 13:39 Not Given (Other Intervention Used; other): Machipongo 10 mg-325 mg 1 tabs PO once; RASS on ls4 ADMIN: Combtv4, Very Agttd3, Agttd2, Rstlss1, AlertClm0, Drwsy-1, Lt Sdtn-2, Mod Sdtn-3, Dp Sdtn-4, UnArsble-5 13:39 Drug: Machipongo 5 mg-325 mg 1 tabs Route: PO; ls4 14:10 Follow up: Response: No adverse reaction ls4 14:10 Follow up: Response: Pain is decreased ls4 Outcome: 13:41 Discharge ordered by MD. pm1 14:10 Discharged to home ambulatory. ph 14:10 Condition: good 14:10 Discharge instructions given to patient, Instructed on discharge instructions, follow up and referral plans. medication usage, Demonstrated understanding of instructions, follow-up care, medications, Prescriptions given X 1. 14:11 Patient left the ED. ph Signatures: Viktoria Pelayo Patricia, RN RN ph Jerman Valentin, NARESH BAG INSPECTOR pm1 Piper Marley, RN RN ls4
--- NOTE | 2020-04-18 13:41 | EDPHYS ---
Physician Documentation [facility] Name: Tika Ceron Age: 34 yrs Sex: Female : 1985 Arrival Date: 04/18/2020 Time: 12:34 Bed 13 Private MD: ED Physician Raffi Lynn HPI: 04/18 13:14 This 34 yrs old Female presents to ER via Ambulatory with complaints of pm1 Urinary Problem. 13:14 The patient presents with urinary symptoms, frequency. Onset: The symptoms/episode pm1 began/occurred 4 day(s) ago. Modifying factors: The symptoms are alleviated by nothing, the symptoms are aggravated by urinating. Associated signs and symptoms: Pertinent negatives: diarrhea, fever, nausea, vomiting. Severity of symptoms: in the emergency department the symptoms are unchanged. The patient is sexually active. The patient has been recently seen by a physician: the patient's primary care provider, yesterday, with similar presenting complaints, and apparently given a diagnosis of UTI and discharged to home with Cipro for 7 days. Also diagnosed with fungal infection under right breast and prescribed nystatin. 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 - Social history:: Smoking status: Patient reports the use of cigarette tobacco products, smokes one-half pack cigarettes per day. ROS: 13:14 Positive for urinary frequency, Negative for burning with urination, vaginal itching.pm1 13:14 Constitutional: Negative for fever, chills, and weight loss, Cardiovascular: Negative for chest pain, palpitations, and edema, Respiratory: Negative for shortness of breath, cough, wheezing, and pleuritic chest pain, Back: Negative for injury and pain. 13:14 MS/Extremity: Negative for injury and deformity. 13:14 Abdomen/GI: Positive for abdominal cramps, of the suprapubic area. 13:14 : Positive for urinary frequency. 13:14 Skin: Positive for rash, of the right breast. Exam: 14:02 Constitutional: This is a well developed, well nourished patient who is awake, alert, pm1 and in no acute distress. Head/Face: Normocephalic, atraumatic. 14:02 Back: No spinal tenderness. No costovertebral tenderness. Full range of motion. 14:02 Skin: Warm, dry with normal turgor. Normal color with no rashes, no lesions, and no evidence of cellulitis. MS/ Extremity: Pulses equal, no cyanosis. Neurovascular intact. Full, normal range of motion. Neuro: Awake and alert, GCS 15, oriented to person, place, time, and situation. Cranial nerves II-XII grossly intact. Motor strength 5/5 in all extremities. Sensory grossly intact. Cerebellar exam normal. Normal gait. 14:02 Chest/axilla: Inspection: rash, consistent with tinea, Piper RN bundler. 14:02 Cardiovascular: Exam negative for acute changes, Rate: normal, Rhythm: regular, Pulses: no pulse deficits are appreciated. 14:02 Respiratory: Exam negative for acute changes, respiratory distress, shortness of breath. 14:02 Abdomen/GI: Exam negative for acute changes, Inspection: abdomen appears normal, Palpation: abdomen is soft and non-tender, in all quadrants. Vital Signs: 12:44 BP 134 / 83; Pulse 105; Resp 18; Temp 98.7(O); Pulse Ox 99% on R/A; Weight 68.49 kg; ph Height 5 ft. 8 in. (172.72 cm); Pain 8/10; 14:10 BP 127 / 86; Pulse 91; Resp 18; Temp 98.4; Pulse Ox 99% on R/A; ph 12:44 Body Mass Index 22.96 (68.49 kg, 172.72 cm) ph MDM: 12:48 Patient medically screened. [facility] 13:33 Data reviewed: vital signs. Data interpreted: Pulse oximetry: on room air is 99 %. pm1 Interpretation: normal. 13:40 Counseling: I had a detailed discussion with the patient and/or guardian regarding: the pm1 historical points, exam findings, and any diagnostic results supporting the discharge/admit diagnosis, lab results, the need for outpatient follow up, to return to the emergency department if symptoms worsen or persist or if there are any questions or concerns that arise at home. 04/18 13:08 Order name: Urine Dipstick--Ancillary (enter results); Complete Time: 13:22 eb 04/18 13:08 Order name: Urine --Ancillary (enter results); Complete Time: 13:22 eb 04/18 13:14 Order name: Urine Microscopic Only; Complete Time: 13:33 pm1 04/18 13:14 Order name: Urine Culture pm1 Administered Medications: 13:39 Drug: Rocephin (cefTRIAXone) 1 grams Route: IM; Site: left gluteus; ls4 14:10 Follow up: Response: No adverse reaction ls4 13:39 Not Given (Other Intervention Used; other): Butternut 10 mg-325 mg 1 tabs PO once; RASS on ls4 ADMIN: Combtv4, Very Agttd3, Agttd2, Rstlss1, AlertClm0, Drwsy-1, Lt Sdtn-2, Mod Sdtn-3, Dp Sdtn-4, UnArsble-5 13:39 Drug: Butternut 5 mg-325 mg 1 tabs Route: PO; ls4 14:10 Follow up: Response: No adverse reaction ls4 14:10 Follow up: Response: Pain is decreased ls4 Disposition: 04/18/20 13:41 Discharged to Home. Impression: Urinary tract infection, site not specified, Tinea cruris. - Condition is Stable. - Discharge Instructions: Urinary Tract Infection, Adult, Skin Yeast Infection. - Prescriptions for Tylenol- Codeine #3 300-30 mg Oral Tablet - take 2 tablets by ORAL route every 6 hours As needed; 20 tablet. - Medication Reconciliation Form, Thank You Letter, Antibiotic Education, Prescription Opioid Use form. - Follow up: Emergency Department; When: As needed; Reason: Worsening of condition. Follow up: Private Physician; When: 2 - 3 days; Reason: Recheck today's complaints, Continuance of care, Re-evaluation by your physician. - Problem is new. - Symptoms have improved. Addendum: 04/20/2020 08:09 Co-signature as Attending Physician, Raffi Lynn MD I agree with the assessment and c sweeney plan of care. Signatures: Dispatcher [employer] Raffi Donohue MD MD cha Hall, Patricia, RN RN Jerman Siddiqui PHYSICAL FITNESS TRAINER PHYSICAL FITNESS TRAINER pm1 Piper Marley RN RN ls4 Corrections: (The following items were deleted from the chart) 04/18 14:11 13:41 04/18/2020 13:41 Discharged to Home. Impression: Urinary tract infection, site ph not specifiedTinea cruris. Condition is Stable. Forms are Medication Reconciliation Form, Thank You Letter, Antibiotic Education, Prescription Opioid Use. Follow up: Emergency Department; When: As needed; Reason: Worsening of condition. Follow up: Private Physician; When: 2 - 3 days; Reason: Recheck today's complaints, Continuance of care, Re-evaluation by your physician. Problem is new. Symptoms have improved. pm1
[2020-04-18] MEDS ORDERED: CEFTRIAXONE 1000 MG/VIAL ONE (13:42)
[2020-04-18 14:16] VITALS: O2SAT 99
[2020-04-18 14:17] VITALS: BP 127/86; TEMP 98.4
== END 2020-04-18 14:11 | disposition home or self-care (01) ==
LOC: ER 12:31
DX: N39.0 Urinary tract infection, site not specified (principal); B35.6 Tinea cruris; F41.9 Anxiety disorder, unspecified; F17.210 Nicotine dependence, cigarettes, uncomplicated
CPT/HCPCS: 87086; 81025; 96372; 99283; J2001; 81003; 81015; 87088

== ENCOUNTER 2021-08-01 18:19 | Emergency (ER) | payer BC, SELFPAY ==
--- OUTSIDE RECORDS SUMMARY | 2021-08-01 18:24 | XMS REPORT | Continuity of Care Document ---
:1985 Author Organization [facility] Address 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 without without Clinics psychotic psychotic features, features, unspecifie unspecifie d whether d whether recurrent recurrent Smoker Smoker Problem [facility] Hyperchole Hyperchole Problem Active [facility] steremia steremia [facility] Chelsie Chelsie Problem Active [facility] albicans albicans [facility] - infection infection Ean joyce l [facility] ent Clinics 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 Medications Ordered Filled Start Stop Current Ordering Indication Dosage Frequency Signature Comments Components Source Medication Medication Date Date Medication? Clinician (SIG) Name Name Alprazolam Alprazolam 2020-0 Yes Judy [address] [facility]14 [place] [facility] - [facility] 00 l [facility] Clinics Nystatin Nystatin 2019-0 2020- No Judy [address] [facility] 8-14 10-13 [place] applicatio [facility] - 00:00: 00:00 n Memoria 00 :00 l [facility] Clinics Ciprofloxac Ciprofloxac 2020-0 2020- No Judy [address] [facility] in HCl in HCl 04-17- [place] [facility] - 00:00: 00:00 Memoria 00 :00 l [facility] Clinics Fluconazole Fluconazole 2019- No Judy [address] [facility] 04-17- [place] [facility] - 00:00: 00:00 Memoria 00 :00 l Outpati ent Clinics Albuterol Albuterol 2018-09 Yes Judy [address] [facility] Sulfate HFA Sulfate HFA 2-12 [place] needed [facility] - 00:[facility]: Memoria 00 l Outpati ent Clinics Omeprazole Omeprazole 2018-09 Yes Judy [address] [facility] 2-05 [place] 30 minutes [facility] - 00:00: before Memoria 00 morning l meal Outpati ent Clinics Trazodone Trazodone Yes Judy [address] [facility] [address] HCl HCl [place] [facility] Gabapentin Gabapentin Yes Judy TAKE [address] [facility] [address] [place] CAPSULE BY [facility] - MOUTH Memoria THREE l TIMES [facility] DA[facility] ent Clinics Armodafinil Armodafinil Yes Judy [address] [facility] [place] kes - [facility] l [facility] Clinics Procedures This patient has no known procedures. Encounters Start End Encounter Admission Attending Care Care Encounter Source Date/Time Date/Time Type Type Clinicians Facility Department ID 2020-04-17 2020-04-17 Outpatient Guru Garveyt [id number] [facility] 08[facility]20[facility]00 08:20:00 [facility] Medicine Outpati ent Clinics 2019-10-08 2019-10-08 [place] [place] [id number] [facility] 13:23[facility]00 13:23:00 [facility] Medicine Medicine Outpati ent Clinics 2019 2019 [facility] [id number] [facility] 13:00:00 13:00:00 [facility] Medicine l Medicine Outpati ent Clinics 2019-10-01 2019-10-01 [facility] [id number] 15:51:00 15:51:00 [facility] Medicine Medicine Outpati ent Clinics 2019-09-24 2019-09-24 [facility] [id number] 15:00:00 15:00:00 [facility] Clinics 2019-08-15 2019-08-15 Outpatient Guru Moscoso [id number] [address] 15:20:00 15:20:00 [facility] ent Clinics 2019-08-08 2019-08-08 Outpatient Guru Moscoso [id number] 11:20:00 11:20:00 [facility] ent Clinics Results This patient has no known results.
[2021-08-01 19:24] LABS: Urine Blood Negative (Negative); Urine Glucose Trace (Negative); Urine Protein Negative (Negative); Urine pH 6.5 (5.0-7.0)
[2021-08-01 19:29] LABS: Absolute Lymphocytes (CBC) 2.4 K/uL (0.7-4.9); Basophils % 0.7 % (0-1.3); Hematocrit 46.8 % (36.0-45.0); Lymphocytes % 35.8 % (15.3-44.8)
[2021-08-01 19:43] LABS: BUN Blood Urea Nitrogen 8 mg/dL (7-18); Bicarbonate 22 mmol/L (21-32); Glucose Level 70 mg/dL (74-106); Potassium 3.4 mmol/L (3.5-5.1); Sodium Level 140 mmol/L (136-145)
[2021-08-01 19:47] LABS: Urine Amorphous Sediment 1+ /HPF (NONE SEEN); Urine Bacteria 20-50 /HPF (<20); Urine RBC <5 /HPF (NONE SEEN)
[2021-08-01] MEDS ORDERED: NA CHLORIDE 0.9% 1,000 ML ONE (19:53)
--- NOTE | 2021-08-01 19:54 | RAD REPORT ---
EXAM DESCRIPTION: CTAbdomen Pelvis W Contrast - 08/01/2021 7:29 pm CLINICAL HISTORY: Abdominal pain. r/o pyelonephritis COMPARISON: Abdomen Pelvis W Contrast dated 12/31/2019 TECHNIQUE: Biphasic CT imaging of the abdomen and pelvis was performed with 100 ml non-ionic IV cont rast. All CT scans are performed using dose optimization technique as appropriate and may include automated exposure control or mA/KV adjustment according to patient size. FINDINGS: The lung bases are clear. The liver, spleen, pancreas, adrenal glands and kidneys are within normal limits. No bowel obstruction, free air, free fluid or abscess. The appendix is normal. No evidence of signi ficant lymphadenopathy. No suspicious bony findings. IMPRESSION: No acute intra-abdominal or pelvic finding.
--- NOTE | 2021-08-01 20:59 | ER ---
Nurse's Notes [facility] Name: Tika Vazquez Age: 35 yrs Sex: Female : 1985 Arrival Date: 08/01/2021 Time: 18:24 Bed 18 Private MD: Diagnosis: UTI/ Urinary tract infection, site not specified Presentation: 08/01 18:34 Chief complaint: Patient states: dysuria, frequency and urgency that started 5 days iw ago. Was started on pyridium and bactrim yesterday by teledoc. Coronavirus screen: Vaccine status: Patient reports receiving the 1st dose of the Covid vaccine. Ebola Screen: Patient negative for fever greater than or equal to 101.5 degrees Fahrenheit, and additional compatible Ebola Virus Disease symptoms Patient denies exposure to infectious person. Patient denies travel to an Ebola-affected area in the 21 days before illness onset. No symptoms or risks identified at this time. Initial Sepsis Screen: Does the patient meet any 2 criteria? No. Patient's initial sepsis screen is negative. Does the patient have a suspected source of infection? No. Patient's initial sepsis screen is negative. Risk Assessment: Do you want to hurt yourself or someone else? Patient reports no desire to harm self or others. Onset of symptoms was July 27, 2021. 18:34 Method Of Arrival: Ambulatory iw 18:34 Acuity: MONIQUE 3 iw Triage Assessment: 18:36 General: Appears in no apparent distress. comfortable, Behavior is calm, cooperative. iw Pain: Complains of pain in low back area. Historical: - Allergies: 18:36 No Known Allergies; iw - PMHx: 18:36 Anxiety; GERD; iw - Immunization history:: Adult Immunizations up to date, Client reports receiving the Man \T\ Man single-dose vaccine. - Social history:: Smoking status: Patient reports the use of cigarette tobacco products, smokes one-half pack cigarettes per day. Screenin:48 Abuse screen: Denies threats or abuse. Abuse screen: Denies injuries from another. ld1 Nutritional screening: No deficits noted. Tuberculosis screening: No symptoms or risk factors identified. Fall Risk None identified. Assessment: 18:48 General: Appears in no apparent distress. well groomed, well developed, Behavior is ld1 calm, cooperative, appropriate for age, Reports dysuria, frequency, suprapubic pain. 18:48 Pain: Complains of pain in back and low back area, suprapubic Pain currently is 5 out ld1 of 10 on a pain scale. at worst was 8 out of 10 on a pain scale. level that patient reports is acceptable is 3 out of 10 on a pain scale. Quality of pain is described as burning, aching. Neuro: No deficits noted. Level of Consciousness is awake, alert, obeys commands, Oriented to person, place, time, situation, Appropriate for age. Cardiovascular: No deficits noted. Respiratory: No deficits noted. Reports. GI: Reports lower abdominal pain. : Reports burning with urination, urgency, urinary frequency. : Denies discharge, vaginal bleeding, vaginal itching. EENT: No deficits noted. No signs and/or symptoms were reported regarding the EENT system. Derm: No deficits noted. No signs and/or symptoms reported regarding the dermatologic system. Musculoskeletal: No deficits noted. No signs and/or symptoms reported regarding the musculoskeletal system. 19:25 Reassessment: pt in CT scan. bb 20:28 Reassessment: Patient is alert, oriented x 3, equal unlabored respirations, skin bb warm/dry/pink. pt c/o abdominal pain 8/10, IV site intact with fluids infusing. Vital Signs: 18:34 BP 145 / 93; Pulse 95; Resp 18; Temp 97.8; Pulse Ox 100% ; Weight 68.04 kg; Height 5 iw ft. 8 in. (172.72 cm); Pain 8/10; 20:28 BP 135 / 84; Pulse 85; Resp 16 S; Pulse Ox 99% on R/A; Pain 8/10; bb 21:30 BP 137 / 97; Pulse 84; Resp 18; Temp 98.8; Pulse Ox 100% on R/A; kd3 18:34 Body Mass Index 22.81 (68.04 kg, 172.72 cm) iw ED Course: 18:24 Patient arrived in ED. as 18:32 Elena Coelho FNP-C is [facility]. kb 18:32 Aleah Piper MD is Attending Physician. kb 18:36 Triage completed. iw 18:37 Arm band placed on left wrist. iw 18:48 Patient has correct armband on for positive identification. Bed in low position. Call ld1 light in reach. Side rails up X 1. 18:58 Inserted saline lock: 22 gauge in left wrist, using aseptic technique. Blood collected. ld1 19:[address] via stretcher. ld1 19:24 Anusha Escalante, RN is Primary Nurse. ld1 19:29 CT Abd/Pelvis - IV Contrast Only In Process Unspecified. EDMS 20:31 Primary Nurse role handed off by Anusha Escalante, RN bb 20:31 Minna Jauregui, RN is Primary Nurse. bb 20:35 CBC with Diff Sent. bb 20:35 Basic Metabolic Panel Sent. bb 20:35 Urine Microscopic Only Sent. bb 21:54 No provider procedures requiring assistance completed. IV discontinued, intact, kd3 bleeding controlled, No redness/swelling at site. Pressure dressing applied. Administered Medications: 20:00 Drug: NS 0.9% 1000 ml Route: IV; Rate: 1000 ml; Site: left wrist; bb 21:25 Drug: Ketorolac 30 mg Route: IVP; Site: left wrist; kd3 21:25 Drug: Rocephin (cefTRIAXone) 1 grams Route: IV; Rate: calculated rate; Site: left wrist;kd3 Outcome: 20:58 Discharge ordered by MD. kb 21:54 Discharged to home ambulatory. kd3 21:54 Condition: stable 21:54 Discharge instructions given to patient, Instructed on discharge instructions, follow up and referral plans. medication usage, Demonstrated understanding of instructions, follow-up care, medications, Prescriptions given X 1. 22:04 Patient left the ED. kd3 Signatures: Dispatcher [employer] EDMN Elena Coelho, FISH BONING MACHINE FEEDER-C FISH BONING MACHINE FEEDER-Samria Goodson as Minna Jauregui, ANGELA MILLER bb Kizzy Buckley RN RN Anusha Escalante, RN RN [place]1 Crystal Holcomb RN RN kd3 Corrections: (The following items were deleted from the chart) 18:38 18:36 Pain: Denies pain. iw iw
--- NOTE | 2021-08-01 20:59 | EDPHYS ---
Physician Documentation [facility] Name: Tika Vazquez Age: 35 yrs Sex: Female : 1985 Arrival Date: 08/01/2021 Time: 18:24 Bed 18 Private MD: ED Physician Aleah Piper HPI: 08/01 21:04 This 35 yrs old Female presents to ER via Ambulatory with complaints of Urinary Problem.kb 21:04 The patient presents with urinary symptoms, dysuria, frequency, urgency. Onset: The kb symptoms/episode began/occurred 5 day(s) ago. Modifying factors: The symptoms are alleviated by nothing, the symptoms are aggravated by nothing. Associated signs and symptoms: Pertinent positives: dysuria, urinary frequency. Severity of symptoms: At their worst the symptoms were moderate, in the emergency department the symptoms are unchanged. The patient has not experienced similar symptoms in the past. The patient has been recently seen by a physician: teledoc yesterday. Pt reports frequency, urgency and dysuria for 5 days. States she came in today because she is having bad low back pain. Historical: - Allergies: 18:36 No Known Allergies; iw - PMHx: 18:36 Anxiety; GERD; iw - Immunization history:: Adult Immunizations up to date, Client reports receiving the Man \T\ Man single-dose vaccine. - Social history:: Smoking status: Patient reports the use of cigarette tobacco products, smokes one-half pack cigarettes per day. ROS: 21:05 Constitutional: Negative for fever, chills, and weight loss. kb 21:05 : Positive for flank pain, urinary frequency, burning with urination. 21:05 All other systems are negative. Exam: 21:05 Constitutional: This is a well developed, well nourished patient who is awake, alert, kb and in no acute distress. Head/Face: Normocephalic, atraumatic. ENT: Moist Mucous membranes Respiratory: Respirations even and unlabored. No increased work of breathing, no retractions or nasal flaring. Skin: Warm, dry with normal turgor. Normal color. MS/ Extremity: Pulses equal, no cyanosis. Neurovascular intact. Full, normal range of motion. Neuro: Awake and alert, GCS 15, oriented to person, place, time, and situation. Moves all extremities. Normal gait. Psych: Awake, alert, with orientation to person, place and time. Behavior, mood, and affect are within normal limits. 21:05 Abdomen/GI: Inspection: abdomen appears normal, Bowel sounds: normal, Palpation: soft, in all quadrants, mild abdominal tenderness, in the suprapubic area. 21:05 Back: CVA tenderness, that is mild, is noted bilaterally. Vital Signs: 18:34 BP 145 / 93; Pulse 95; Resp 18; Temp 97.8; Pulse Ox 100% ; Weight 68.04 kg; Height 5 iw ft. 8 in. (172.72 cm); Pain 8/10; 20:28 BP 135 / 84; Pulse 85; Resp 16 S; Pulse Ox 99% on R/A; Pain 8/10; bb 21:30 BP 137 / 97; Pulse 84; Resp 18; Temp 98.8; Pulse Ox 100% on R/A; kd3 18:34 Body Mass Index 22.81 (68.04 kg, 172.72 cm) iw MDM: 18:32 Patient medically screened. kb 20:57 Data reviewed: vital signs, nurses notes. Data interpreted: Pulse oximetry: on room air kb is 99 %. Interpretation: normal. Counseling: I had a detailed discussion with the patient and/or guardian regarding: the historical points, exam findings, and any diagnostic results supporting the discharge/admit diagnosis, lab results, radiology results, the need for outpatient follow up, a family practitioner, to return to the emergency department if symptoms worsen or persist or if there are any questions or concerns that arise at home. 08/01 18:40 Order name: Urine Microscopic Only 08/01 18:40 Order name: Basic Metabolic Panel 08/01 18:40 Order name: CBC with Diff 08/01 18:41 Order name: Urine Microscopic Only; Complete Time: 19:54 EDMS 08/01 18:41 Order name: Basic Metabolic Panel; Complete Time: 19:54 EDMS 08/01 18:41 Order name: CBC with Automated Diff; Complete Time: 19:35 EDMS 08/01 18:40 Order name: Urine Dipstick-Ancillary (obtain specimen); Complete Time: 20:35 kb 08/01 18:40 Order name: Urine Test (obtain specimen); Complete Time: 20:35 kb 08/01 18:40 Order name: CT Abd/Pelvis - IV Contrast Only; Complete Time: 19:55 kb 08/01 19:23 Order name: Urine Dipstick-Ancillary; Complete Time: 19:35 EDGA 08/01 19:48 Order name: Urine Culture EDGA 08/01 18:40 Order name: IV Saline Lock; Complete Time: 20:35 kb 08/01 18:40 Order name: Labs collected and sent; Complete Time: 20:35 kb Administered Medications: 20:00 Drug: NS 0.9% 1000 ml Route: IV; Rate: 1000 ml; Site: left wrist; bb 21:25 Drug: Ketorolac 30 mg Route: IVP; Site: left wrist; kd3 21:25 Drug: Rocephin (cefTRIAXone) 1 grams Route: IV; Rate: calculated rate; Site: left wrist;kd3 Disposition: 08/02 09:19 Co-signature as Attending Physician, Aleah Piper MD I agree with the assessment and sp3 plan of care. Disposition Summary: 08/01/21 20:58 Discharge Ordered Location: Home kb Condition: Stable kb Diagnosis - UTI/ Urinary tract infection, site not specified kb Followup: kb - With: Emergency Department - When: As needed - Reason: Worsening of condition Followup: kb - With: Private Physician - When: 2 - 3 days - Reason: Recheck today's complaints, Continuance of care, Re-evaluation by your physician Discharge Instructions: - Discharge Summary Sheet kb - Urinary Tract Infection, Adult, [id number] kb Forms: - Medication Reconciliation Form kb - Thank You Letter kb - Antibiotic Education kb - Prescription Opioid Use kb Prescriptions: - Diclofenac Sodium 75 mg Oral tablet,delayed release (DR/EC) - take 1 tablet by ORAL route 2 times per day As needed; 30 tablet; Refills: 0, kb Product Selection Permitted Signatures: Dispatcher [employer] EDGA Elena Coelho, EDGAR POLANCO-Minna Peng RN Kizzy Mendoza RN Aleah Smart MD MD sp3 Crystal Holcomb RN RN kd3
[2021-08-01] MEDS ORDERED: KETOROLAC 30 MG/ML INJ ONE (21:16)
[2021-08-01] MEDS ORDERED: CEFTRIAXONE 1000 MG/VIAL ONE (21:16)
[2021-08-01 22:35] VITALS: BP 137/97; TEMP 98.8; O2SAT 100
== END 2021-08-01 22:04 | disposition home or self-care (01) ==
LOC: ER 18:19
DX: N39.0 Urinary tract infection, site not specified (principal); F17.210 Nicotine dependence, cigarettes, uncomplicated
CPT/HCPCS: 36415; 74177; 80048; 81003; 81015; 82565; 85025; 87086; 87088; 96374; 96375; 99284; J7030; Q9967

== ENCOUNTER 2021-11-27 20:01 | Emergency (ER) | payer SELFPAY ==
--- OUTSIDE RECORDS SUMMARY | 2021-11-27 20:04 | XMS REPORT | Continuity of Care Document ---
:1985 Author Organization [facility] t Address 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 without without Clinics psychotic psychotic features, features, unspecifie unspecifie d whether d whether recurrent recurrent Smoker Smoker Problem [facility] Hyperchole Hyperchole Problem Active [facility] steremia steremia [facility]ics Chelsie Chelsie Problem Active [facility] albicans albicans [facility] - infection infection Ean joyce l [facility] Clin[facility] 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 Medications Ordered Filled Start Stop Current Ordering Indication Dosage Frequency Signature Comments Components Source Medication Medication Date Date Medication? Clinician (SIG) Name Name Alprazolam Alprazolam 2020-0 Yes Judy [address] [facility] 8[facility]14 [facility] - 00[facility]: Memoria 00 l [facility] Nystatin Nystatin 2019-0 2020- No Judy [address] [facility] [facility] 8-14 10-13 [place] applicatio [facility] - 00:00: 00:00 n Memoria 00 :00 l [facility] Ciprofloxac Ciprofloxac 2019-0 2020- No Judy [address] [facility] in HCl in HCl 04-17- Div[facility] - 00:00: 00:00 Memoria 00 :00 l Outpati ent Clinics Fluconazole Fluconazole 2020- No Judy [address] [facility] 04-17- [facility] [facility] - 00:00: 00:00 Memoria 00 :00 l Outpati ent Clinics Albuterol Albuterol 2018-09 Yes Judy [address] [facility] Sulfate HFA Sulfate HFA 2-12 [place] needed [facility] - 00:00: Memoria 00 l Outpati ent Clinics Omeprazole Omeprazole 2018-09 Yes Judy [address] [facility] 2-05 [place] 30 minutes [facility] - 00:00: before Memoria 00 morning l meal Outpati ent Clinics Trazodone Trazodone Yes Judy [address] [address] HCl HCl [facility] at bedtime [facility] Gabapentin Gabapentin Yes Judy TAKE [address] [facility] CAPSULE BY [facility] - MOUTH Memoria THREE l TIMES [facility] Clinics Armodafinil Armodafinil Yes Judy [address] [facility] [address] [facility] l [facility] Procedures This patient has no known procedures. Encounters Start End Encounter Admission Attending Care Care Encounter Source Date/Time Date/Time Type Type Clinicians Facility Department ID 2021-09-29 Outpatient DivideST leigh ann[facility]ECIA [facility] [id number] 12:04[facility]12 Judy [id number] [facility] 2021-09-29 Outpatient Cali [facility] [id number] 11:37:03 Judy [id number] [facility] 2021-09-29 [facility] [id number] 11:[facility]08 Judy [id number] [facility] 2021-09-[address] [facility]ECIA [facility] [id number] 11:09:44 Estella [id number] [facility] 2021-09-29 Outpatient Robert [facility] [id number] 11:04:27 Estella [id number] [facility] 2021-09-29 [facility] [id number] 11:02:15 Estella [address] [facility] l Outpati ent Clinics 2021-09-29 Outpatient Robert [facility] [id number] 11:00:50 Estella [id number] [facility] l Outpati ent Clinics 2020-04-17 2020-04-17 [facility] [id number] 08:20:00 08:20:00 [facility] Medicine Outpati ent Clinics 2019-10-08 2019-10-08 [facility] [id number] [facility] 13:23:00 13:23:00 [facility] Medicine Outpati ent Clinics 2019 2019 [facility] [id number] 13:00:00 13:00:00 [facility] Medicine Outpati ent Clinics 2019-10-01 2019-10-01 [facility] [id number] 15:51:00 15:51:00 [facility] Medicine Outpati ent Clinics 2019-09-24 2019-09-24 [facility] [id number] [facility] 15:00:00 15:00:00 [facility] Medicine Outpati ent Clinics 2019-08-15 2019-08-15 [facility] [id number] 15:20:00 15:20:00 [facility] Medicine Outpati ent Clinics 2019-08-08 2019-08-08 [facility] [id number] 11:20:00 11:20:00 [facility] Medicine Outpati ent Clinics Results This patient has no known results.
--- NOTE | 2021-11-27 21:16 | RAD REPORT ---
EXAM DESCRIPTION: RAD - Chest Single View - 11/27/2021 9:07 pm CLINICAL HISTORY: syncope COMPARISON: No comparisons FINDINGS: Lines: None. Lungs: No evidence of edema or pneumonia. Pleural: No significant pleural effusions or pneumothorax. Cardiac: The heart size is within normal limits. Bones: No acute fractures. Other: IMPRESSION: No acute cardiopulmonary disease.
[2021-11-27 21:20] LABS: Urine Blood Negative (Negative); Urine Glucose Negative (Negative); Urine Protein Negative (Negative); Urine Specific Gravity >=1.030 (1.005-1.030)
[2021-11-27 21:26] LABS: Urine Specific Gravity/Preg >1.030 (1.005-1.030)
[2021-11-27 21:29] LABS: Absolute Lymphocytes (CBC) 2.2 K/uL (0.7-4.9); Hematocrit 37.8 % (36.0-45.0); Lymphocytes % 41.7 % (15.3-44.8); MPV 8.3 fL (7.6-11.3); RBC Red Blood Cell Count 4.03 M/uL (3.86-4.86)
--- NOTE | 2021-11-27 21:33 | RAD REPORT ---
EXAM DESCRIPTION: CT - Head Brain Wo Cont - 11/27/2021 9:27 pm CLINICAL HISTORY: SYNCOPE COMPARISON: No comparisons TECHNIQUE: All CT scans are performed using dose optimization technique as appropriate and may inclu de automated exposure control or mA/KV adjustment according to patient size. FINDINGS: No intracranial hemorrhage, hydrocephalus or extra-axial fluid collection.No areas of brai n edema or evidence of midline shift. The paranasal sinuses and mastoids are clear. The calvarium is intact. IMPRESSION: No acute intracranial abnormality.
[2021-11-27 21:38] LABS: Protime INR 0.96
[2021-11-27 21:43] LABS: Barbiturates NEGATIVE (NEGATIVE); Benzodiazepines NEGATIVE (NEGATIVE); Cocaine NEGATIVE (NEGATIVE); METHAMPHETAM NEGATIVE (NEGATIVE); Methadone NEGATIVE (NEGATIVE); Opiates NEGATIVE (NEGATIVE); Phencyclidine NEGATIVE (NEGATIVE); THC Cannibis POSITIVE (NEGATIVE)
[2021-11-27 22:09] LABS: ALT/SGPT 18 U/L (12-78); AST/SGOT 15 U/L (15-37); Albumin 3.8 g/dL (3.4-5.0); Alkaline Phosphatase 67 U/L (45-117); BUN Blood Urea Nitrogen 16 mg/dL (7-18); Bicarbonate 25 mmol/L (21-32); Bilirubin Total 0.2 mg/dL (0.2-1.0); Glucose Level 88 mg/dL (74-106); Magnesium 2.4 mg/dL (1.8-2.4); NT PRO-BNP 63 pg/mL (<125); Potassium 4.1 mmol/L (3.5-5.1); Protein, Total 6.8 g/dL (6.4-8.2); Sodium Level 135 mmol/L (136-145); Troponin High Sensitivity 4.8 pg/mL (<58.9)
[2021-11-27 22:16] LABS: Bilirubin Direct < 0.1 mg/dL (0-0.2)
[2021-11-27] MEDS ORDERED: KETOROLAC 30 MG/ML INJ ONE (23:45)
--- NOTE | 2021-11-28 00:08 | ER ---
Nurse's Notes [facility] Name: Tika Vazquez Age: 36 yrs Sex: Female : 1985 Arrival Date: 11/27/2021 Time: 20:03 Bed 23 Private MD: Diagnosis: Syncope;Cannabis abuse Presentation: 11/27 20:09 Chief complaint: EMS states: they were toned out for report of pt collapsing while on bb break at B with a possible seizure pt does not remember what happened. Coronavirus screen: At this time, the client does not indicate any symptoms associated with coronavirus-19. Ebola Screen: No symptoms or risks identified at this time. Initial Sepsis Screen: Does the patient meet any 2 criteria? No. Patient's initial sepsis screen is negative. Does the patient have a suspected source of infection? No. Patient's initial sepsis screen is negative. Risk Assessment: Do you want to hurt yourself or someone else? Patient reports no desire to harm self or others. Onset of symptoms was November 27, 2021. 20:09 Method Of Arrival: EMS: [facility] bb 20:09 Acuity: MONIQUE 2 bb PLATEMAKER: 20:11 LMP N/A - bb Historical: - Allergies: 20:11 No Known Allergies; bb - Home Meds: 20:11 None [Active]; bb - PSHx: 20:11 Ligation of fallopian tube; bb - Immunization history:: Client reports receiving the Man \T\ Man single-dose vaccine. - Social history:: Smoking status: Patient reports the use of cigarette tobacco products, denies chronic smoking, but will smoke occasionally. Assessment: 20:16 General: Appears in no apparent distress. comfortable, Behavior is calm, cooperative, ld1 appropriate for age. Pain: Complains of pain in back Pain does not radiate. Pain currently is 9 out of 10 on a pain scale. Quality of pain is described as throbbing, Pain began suddenly, Is continuous. Neuro: Level of Consciousness is awake, alert, obeys commands, Oriented to person, place, time, situation. Cardiovascular: Capillary refill < 3 seconds Patient's skin is warm and dry. Respiratory: Airway is patent Respiratory effort is even, unlabored. GI: Abdomen is flat, non-distended. : No signs and/or symptoms were reported regarding the genitourinary system. EENT: No signs and/or symptoms were reported regarding the EENT system. Derm: No signs and/or symptoms reported regarding the dermatologic system. Musculoskeletal: No signs and/or symptoms reported regarding the musculoskeletal system. 22:41 Reassessment: Patient appears in no apparent distress at this time. No changes from ld1 previously documented assessment. Patient and/or family updated on plan of care and expected duration. Pain level reassessed. 23:45 Reassessment: Patient appears in no apparent distress at this time. Patient and/or ld1 family updated on plan of care and expected duration. Pain level reassessed. Patient is alert, oriented x 3, equal unlabored respirations, skin warm/dry/pink. 11/28 00:18 Reassessment: Patient is alert, oriented x 3, equal unlabored respirations, skin bb warm/dry/pink. pt verbalized understanding of and agrees to plan of care discharge instructions given pt ambulated with steady gait to exit. Vital Signs: 11/27 20:09 BP 138 / 91; Pulse 86; Resp 16 S; Temp 98.1(O); Pulse Ox 98% on R/A; Weight 76.66 kg bb (R); Height 5 ft. 8 in. (172.72 cm) (R); Pain 8/10; 21:00 BP 124 / 68; Pulse 70; Resp 15; Pulse Ox 100% on R/A; ld1 22:30 BP 129 / 86; Pulse 75; Resp 17; Pulse Ox 100% on R/A; ld1 23:00 BP 115 / 80; Pulse 76; Resp 19; Pulse Ox 97% on R/A; ld1 23:45 BP 121 / 78; Pulse 70; Resp 18; Pulse Ox 98% on R/A; ld1 20:09 Body Mass Index 25.70 (76.66 kg, 172.72 cm) bb ED Course: 20:03 Patient arrived in ED. ld1 20:11 Triage completed. bb 20:11 Arm band placed on Patient placed in an exam room, on a stretcher, on lapidarist, bb on pulse oximetry. 20:16 Anusha Escalante, RN is Primary Nurse. ld1 20:16 Patient has correct armband on for positive identification. Placed in gown. Bed in low ld1 position. Call light in reach. Side rails up X2. early childhood education coordinator on. Pulse ox on. NIBP on. Door closed. Noise minimized. Warm blanket given. 20:16 No provider procedures requiring assistance completed. Maintain EMS IV. Dressing ld1 intact. Good blood return noted. Site clean \T\ dry. Gauge \T\ site: 20 LH. 20:28 Behzad Rosales MD is Attending Physician. [facility] 21:07 X-ray completed. Portable x-ray completed in exam room. Patient tolerated procedure [facility] well. 21:08 XRAY Chest (1 view) In Process Unspecified. EDMS 21:21 UDS Sent. ld1 21:29 CT Head Brain wo Cont In Process Unspecified. EDMS 22:47 CT Chest For PE Angio In Process Unspecified. EDMS 11/28 00:18 IV discontinued, intact, bleeding controlled, No redness/swelling at site. Pressure bb dressing applied. Administered Medications: 11/27 23:35 Drug: Ketorolac 30 mg Route: IVP; Site: right antecubital; ld1 23:44 Follow up: Response: No adverse reaction ld1 Outcome: 11/28 00:08 Discharge ordered by . [facility] 00:19 Discharged to home ambulatory, with family. bb 00:19 Condition: stable 00:19 Discharge instructions given to patient, Instructed on discharge instructions, follow up and referral plans. Demonstrated understanding of instructions, follow-up care. 00:19 Patient left the ED. andrew Signatures: Dispatcher [employer] EDVanessa Ziegler 1 Minna Jauregui RN RN Behzad Aguilar MD MD [facility] Anusha Escalante, ANGELA RN ld1 Corrections: (The following items were deleted from the chart) 11/27 20:13 20:11 LMP N/A - control method andrew morales
--- NOTE | 2021-11-28 00:08 | EDPHYS ---
Physician Documentation [facility] Name: Tika Vazquez Age: 36 yrs Sex: Female : 1985 Arrival Date: 11/27/2021 Time: 20:03 Bed 23 Private MD: ED Physician Behzad Rosales HPI: 11/27 21:10 This 36 yrs old Female presents to ER via EMS with complaints of Passed Out. mh7 21:10 The patient has experienced syncope, became unresponsive, collapsed. Onset: The mh7 symptoms/episode began/occurred today, at 19:30. Duration: This was a single episode, that lasted an unknown period of time. Context: the episode(s) was witnessed, by a bystander, occurred at work, occurred while the patient was sitting, Just prior to the episode the patient experienced anxiety. Associated injury: The patient did not suffer any apparent associated injury. Associated signs and symptoms: Pertinent positives: seizure, possible, Pertinent negatives: abdominal pain, agitation, ataxia, blurred vision, chest pain, combativeness, confusion, diaphoresis, diarrhea, dizziness, headache, lightheadedness, nausea, numbness, palpitations, shortness of breath, tingling, vertigo, vomiting, weakness. Current symptoms: Currently, the patient is not experiencing any symptoms, the patient feels back to baseline. States that she had a panic attack then passed out. . 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 - Social history:: Smoking status: Patient reports the use of cigarette tobacco products, denies chronic smoking, but will smoke occasionally. ROS: 21:10 Constitutional: Negative for fever, chills, and weight loss, Eyes: Negative for injury, mh7 pain, redness, and discharge, ENT: Negative for injury, pain, and discharge, Neck: Negative for injury, pain, and swelling, Cardiovascular: Negative for chest pain, palpitations, and edema, Respiratory: Negative for shortness of breath, cough, wheezing, and pleuritic chest pain, Abdomen/GI: Negative for abdominal pain, nausea, vomiting, diarrhea, and constipation, Back: Negative for injury and pain, : Negative for injury, bleeding, discharge, and swelling, MS/Extremity: Negative for injury and deformity, Skin: Negative for injury, rash, and discoloration, Allergy/Immunology: Negative for hives, rash, and allergies, Endocrine: Negative for neck swelling, polydipsia, polyuria, polyphagia, and marked weight changes, Hematologic/Lymphatic: Negative for swollen nodes, abnormal bleeding, and unusual bruising. Exam: 21:10 Constitutional: This is a well developed, well nourished patient who is awake, alert, mh7 and in no acute distress. Head/Face: Normocephalic, atraumatic. Eyes: Pupils equal round and reactive to light, extra-ocular motions intact. Lids and lashes normal. Conjunctiva and sclera are non-icteric and not injected. Cornea within normal limits. Periorbital areas with no swelling, redness, or edema. ENT: Nares patent. No nasal discharge, no septal abnormalities noted. Tympanic membranes are normal and external auditory canals are clear. Oropharynx with no redness, swelling, or masses, exudates, or evidence of obstruction, uvula midline. Mucous membranes moist. Neck: Trachea midline, no thyromegaly or masses palpated, and no cervical lymphadenopathy. Supple, full range of motion without nuchal rigidity, or vertebral point tenderness. No Meningismus. Chest/axilla: Normal chest wall appearance and motion. Nontender with no deformity. No lesions are appreciated. Cardiovascular: Regular rate and rhythm with a normal S1 and S2. No gallops, murmurs, or rubs. Normal PMI, no JVD. No pulse deficits. Respiratory: Lungs have equal breath sounds bilaterally, clear to auscultation and percussion. No rales, rhonchi or wheezes noted. No increased work of breathing, no retractions or nasal flaring. Abdomen/GI: Soft, non-tender, with normal bowel sounds. No distension or tympany. No guarding or rebound. No evidence of tenderness throughout. Back: No spinal tenderness. No costovertebral tenderness. Full range of motion. Skin: Warm, dry with normal turgor. Normal color with no rashes, no lesions, and no evidence of cellulitis. MS/ Extremity: Pulses equal, no cyanosis. Neurovascular intact. Full, normal range of motion. Neuro: Awake and alert, GCS 15, oriented to person, place, time, and situation. Cranial nerves II-XII grossly intact. Motor strength 5/5 in all extremities. Sensory grossly intact. Cerebellar exam normal. Normal gait. Psych: Awake, alert, with orientation to person, place and time. Behavior, mood, and affect are within normal limits. 21:10 ECG was reviewed by the Attending Physician. [facility] Vital Signs: 20:09 BP 138 / 91; Pulse 86; Resp 16 S; Temp 98.1(O); Pulse Ox 98% on R/A; Weight 76.66 kg bb (R); Height 5 ft. 8 in. (172.72 cm) (R); Pain 8/10; 21:00 BP 124 / 68; Pulse 70; Resp 15; Pulse Ox 100% on R/A; ld1 22:30 BP 129 / 86; Pulse 75; Resp 17; Pulse Ox 100% on R/A; ld1 23:00 BP 115 / 80; Pulse 76; Resp 19; Pulse Ox 97% on R/A; ld1 23:45 BP 121 / 78; Pulse 70; Resp 18; Pulse Ox 98% on R/A; ld1 20:09 Body Mass Index 25.70 (76.66 kg, 172.72 cm) MDM: 11/28 00:05 Differential Diagnosis: cardiac arrhythmia, drug effect, emotional response, idiopathic mh7 syncope, pseudo seizure, seizure, transient ischemic attack, vasovagal episode. Data reviewed: vital signs, nurses notes, lab test result(s), cardiac enzymes, CBC, electrolytes, urinalysis, urine drug screen, UPT: negative EKG, radiologic studies, CT scan, plain films. Data interpreted: Pulse oximetry: on room air is 98 %. Interpretation: normal. Counseling: I had a detailed discussion with the patient and/or guardian regarding: the historical points, exam findings, and any diagnostic results supporting the discharge/admit diagnosis, lab results, radiology results, the need for outpatient follow up, to return to the emergency department if symptoms worsen or persist or if there are any questions or concerns that arise at home. Response to treatment: the patient's symptoms have resolved after treatment, the patient's blood pressure is in an acceptable range, mental status has returned to baseline, the patient no longer shows bradycardia, the patient is not short of breath, the patient is not tachycardic, the patient's pain is gone, the patient's temperature has normalized, patient is well hydrated. 00:08 Patient medically screened. [facility] 11/27 20:48 Order name: Basic Metabolic Panel; Complete Time: 22:27 [facility] 11/27 20:48 Order name: CBC with Diff; Complete Time: 22: [facility] 11/27 20:48 Order name: D-Dimer; Complete Time: 22: [facility] 11/27 20:48 Order name: LFT's; Complete Time: 22: [facility] 11/27 20:48 Order name: Magnesium; Complete Time: 22: [facility] 11/27 20:48 Order name: NT PRO-BNP; Complete Time: 22: [facility] 11/27 20:48 Order name: PT-INR; Complete Time: 22: [facility] 11/27 20:48 Order name: Troponin HS; Complete Time: 22: [facility] 11/27 20:48 Order name: XRAY Chest (1 view); Complete Time: 22: [facility] 11/27 20:48 Order name: UDS; Complete Time: 22: [facility] 11/27 20:48 Order name: CT Head Brain wo Cont; Complete Time: 22: [facility] 11/27 20:48 Order name: ETOH Level; Complete Time: 22: [facility] 11/27 21:20 Order name: Urine Dipstick-Ancillary; Complete Time: 22:05 EDMS 11/27 21:20 Order name: Urine --Ancillary (enter results); Complete Time: 22:05 ds4 11/27 20:48 Order name: EKG; Complete Time: 20:49 [facility] 11/27 20:48 Order name: Cardiac monitoring; Complete Time: 21: [facility] 11/27 20:48 Order name: EKG - Nurse/Tech; Complete Time: 21: [facility] 11/27 20:48 Order name: IV Saline Lock; Complete Time: 21: [facility] 11/27 20:48 Order name: Labs collected and sent; Complete Time: 21: [facility] 11/27 20:48 Order name: O2 Per Protocol; Complete Time: 21: [facility] 11/27 20:48 Order name: O2 Sat Monitoring; Complete Time: 21:13 [facility] 11/27 20:48 Order name: Urine Test (obtain specimen); Complete Time: 21:20 [facility] 11/27 22:07 Order name: CT Chest For PE Angio [facility] EC/26 21:10 Rate is 81 beats/min. Rhythm is regular, Normal Sinus Rhythm. QRS [place] is Normal. VT mh7 interval is normal. QRS interval is normal. QT interval is normal. No Q waves. T waves are Normal. No ST changes noted. Clinical impression: Normal ECG. Administered Medications: 23:35 Drug: Ketorolac 30 mg Route: IVP; Site: right antecubital; ld1 23:44 Follow up: Response: No adverse reaction ld1 Disposition Summary: 11/28/21 00:08 Discharge Ordered Location: Home [facility] Problem: [facility] Symptoms: are resolved [facility] Condition: Stable [facility] Diagnosis - Syncope 7 - Cannabis abuse [facility] Followup: [facility] - With: Private Physician - When: 1 - 2 days - Reason: Worsening of condition, Recheck today's complaints, Continuance of care, Re-evaluation by your physician Discharge Instructions: - Discharge Summary Sheet [facility] - Cannabis Use Disorder [facility] - Syncope, [id number] [facility] Forms: - Medication Reconciliation Form [facility] - Thank You Letter [facility] - Work release form bb - Antibiotic Education [facility] - Prescription Opioid Use [facility] Signatures: Dispatcher [employer] Minna Antunez RN RN bb Behzad Rosales MD MD [facility] Anusha Escalante RN RN ld1
[2021-11-28 01:12] VITALS: TEMP 98.1
[2021-11-28 01:19] VITALS: BP 121/78; O2SAT 98
--- NOTE | 2021-11-29 09:50 | RAD REPORT ---
EXAM DESCRIPTION: CT - Chest For Pe Angio - 11/28/2021 7:02 am CLINICAL HISTORY: Syncope, elevated d-dimer. COMPARISON: None. TECHNIQUE: CTA of the chest was performed following intravenous administration of iodinated contrast . Axial soft tissue and lung window, and coronal and sagittal soft tissue window reconstructions were created and sent to PACS. 3D postprocessing was performed on an independent workstation, with images sent to PACS for subsequen t review. This exam was performed according to our departmental dose-optimization program, which includes autom ated exposure control, adjustment of the mA and/or kV according to patient size and/or use of iterati ve reconstruction technique. FINDINGS: Vascular: The pulmonary arteries are well-opacified to the segmental level. No CT evidence of acute pulmonary thromboembolism. No evidence of aortic aneurysm or dissection. Lungs and pleura: No pulmonary consolidation. No pleural effusion. No pneumothorax. Mediastinum and neck: No mediastinal lymphadenopathy by CT size criteria. Unremarkable appearance of the thyroid gland. Cardiac: No cardiomegaly or pericardial effusion. Abdomen: No significant upper abdominal abnormality identified. Musculoskeletal: No concerning osseous abnormality. IMPRESSION: No CTA evidence of acute pulmonary thromboembolism. Electronically signed by: Ira Rios MD 11/27/2021 11:31 PM CDT Due to temporary technical issues with the PACS/Fluency reporting system, reports are being signed by the in house radiologist without review as a courtesy to ensure prompt reporting. The interpreting r adiologist is fully responsible for the content of the report.
--- NOTE | 2021-11-30 12:39 | EKG ---
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
== END 2021-11-28 00:19 | disposition home or self-care (01) ==
LOC: ER 20:01
DX: F12.10 Cannabis abuse, uncomplicated (principal); F17.210 Nicotine dependence, cigarettes, uncomplicated
CPT/HCPCS: 36415; 70450; 71045; 71275; 80048; 80076; 80307; 80320; 81003; 81025; 83735; 83880; 84484; 85025; 85379; 85610; 93005; 96374; 99284; Q9967

== ENCOUNTER 2022-01-11 08:49 | Emergency (ER) | payer SELFPAY ==
--- OUTSIDE RECORDS SUMMARY | 2022-01-11 08:52 | XMS REPORT | Continuity of Care Document ---
:1985 Author Organization [facility] t Address [address] [place] [address] Dr. 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 Medications Ordered Filled Start Stop Current Ordering Indication Dosage Frequency Signature Comments Components Source Medication Medication Date Date Medication? Clinician (SIG) Name Name Alprazolam Alprazolam 2020-0 Yes Judy 1 tablet NPI:174 04-17 Murray [id number] 00:00: 00 Nystatin Nystatin 2020-0 2020- No Judy 1 NPI :174 04-17 Murray applicatio [id number] 00:00: 00:00 n 00 :00 Ciprofloxac Ciprofloxac 2020-0 2020- No Judy 1 tablet NPI:174 in HCl in HCl 04-17 Murray [id number] 00:00: 00:00 00 :00 Fluconazole Fluconazole 2020-0 2020- No Judy 1 tablet NPI:174 04-17 Murray [id number] 00:00: 00:00 00 :00 Albuterol Albuterol 2018- Yes Judy 2 puffs as NPI:174 Sulfate HFA Sulfate HFA 2-12 Murray needed [id number] 00:00: 00 Omeprazole Omeprazole 2018- Yes Judy 1 capsule NPI:174 2-05 Murray 30 minutes [id number] 00:00: before 00 morning meal Trazodone Trazodone Yes Judy 1 tablet NPI:174 HCl HCl Murray at bedtime [id number] Gabapentin Gabapentin Yes Judy TAKE 1 NPI:174 Murray CAPSULE BY [id number] MOUTH THREE TIMES DAILY Armodafinil Armodafinil Yes Judy 1 tablet NPI:174 Murray [id number] Procedures This patient has no known procedures. Encounters Start End Encounter Admission Attending Care Care Encounter Source Date/Time Date/Time Type Type Clinicians Facility Department ID 2021-09-29 Outpatient Cali [facility] [id number] NPI:174 12:04:12 Judy [id number] 2021-09-29 Outpatient Cali [facility] [id number] NPI:174 11:37:03 Judy [id number] 2021-09-29 Outpatient Cali [facility] [id number] NPI:174 11:33:08 Judy [id number] 2021-09-29 Outpatient Robert, STLMLC ST[facility] [id number] NPI:174 11:09:44 Estella [id number] 2021-09-29 Outpatient Robert [facility] ST[facility] [id number] NPI:174 11:04:27 Estella [id number] 2021-09-29 Outpatient Robert [facility]LMLC ST[facility] [id number] NPI:174 11:02:15 Estella [id number] 2021-09-29 Outpatient Robert [facility]LML[facility] ST[facility] [id number] NPI:174 11:00:50 Estella [id number] 2020-04-17 2020-04-17 Outpatient [facility] [id number] NPI:174 08:20:00 08:20:00 [place] [id number] [facility] 2019-10-08 2019-10-08 [place] [place] [id number] NPI:174 13:23:00 13:23:[address] 2019 2019 [place] [place] [id number] NPI:174 13:00:00 13:00:[address] 2019-10-01 2019-10-01 [facility] [place] [id number] NPI:174 15:51:00 15:51:[address] 2019-09-24 2019-09-24 [facility] [place] [id number] NPI:174 15:00:00 15:00:[address] 2019-08-15 2019-08-15 [facility] [place] [id number] NPI:174 15:20:00 15:20:[address] 2019-08-08 2019-08-08 [facility] [place] [id number] NPI:174 11:20:00 11:20:[address] Results This patient has no known results.
--- NOTE | 2022-01-11 09:13 | ER ---
Nurse's Notes 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 iw Coronavirus screen: At this time, the client does not indicate any symptoms associated with coronavirus-19. Ebola Screen: Patient negative for fever greater than or equal to 101.5 degrees Fahrenheit, and additional compatible Ebola Virus Disease symptoms Patient denies exposure to infectious person. Patient denies travel to an Ebola-affected area in the 21 days before illness onset. No symptoms or risks identified at this time. Initial Sepsis Screen: Does the patient meet any 2 criteria? No. Patient's initial sepsis screen is negative. Does the patient have a suspected source of infection? No. Patient's initial sepsis screen is negative. Risk Assessment: Do you want to hurt yourself or someone else? Patient reports no desire to harm self or others. Onset of symptoms was January 11, 2022. 09:00 Method Of Arrival: Ambulatory iw 09:00 Acuity: MONIQUE 4 iw Historical: - Allergies: 09:01 No Known Allergies; iw - PMHx: 09:01 Anxiety; GERD; iw Screenin:02 Abuse screen: Denies threats or abuse. Denies injuries from another. Nutritional iw screening: No deficits noted. Tuberculosis screening: No symptoms or risk factors identified. Fall Risk None identified. Assessment: 09:01 General: Appears in no apparent distress. Behavior is calm, cooperative. Pain: iw Complains of pain in posterior chest and back. Neuro: Level of Consciousness is awake, alert, obeys commands, Oriented to person, place, time, situation, Moves all extremities. Full function. Respiratory: Respiratory effort is even, unlabored, Respiratory pattern is regular. Derm: Skin is intact, is healthy with good turgor. Vital Signs: 09:01 BP 114 / 82; Pulse 94; Resp 16; Temp 97.8; Pulse Ox 100% on R/A; iw ED Course: 08:51 Patient arrived in ED. as 08:52 Julio Shaffer PA is PHCP. [facility] 08:52 Lencho Macdonald MD is Attending Physician. jmm 09:01 Triage completed. iw 09:01 Arm band placed on. iw Administered Medications: 09:17 Drug: Ketorolac 30 mg Route: IM; Site: right gluteus; iw 09:17 Drug: Decadron (dexamethasone) 10 mg Route: IM; Site: left gluteus; iw 09:17 Drug: Valium (diazepam) 5 mg Route: PO; iw Outcome: 09:12 Discharge ordered by . m 09:18 Patient left the ED. iw Signatures: Julio Shaffer PA PA jmm Martinez, Amelia as Williams, Irene, RN RN iw
--- NOTE | 2022-01-11 09:13 | EDPHYS ---
Physician Documentation [facility] Name: Tika Vazquez Age: 36 yrs Sex: Female : 1985 Arrival Date: 01/11/2022 Time: 08:51 Bed Waiting Private MD: ED Physician Lencho Macdonald HPI: 01/11 09:02 This 36 yrs old Female presents to ER via Ambulatory with complaints of Back Pain. jmm 09:02 The patient presents with pain that is acute. jmm 09:07 The symptoms are located in the right scapular area, left low back and left mid back. jmm The pain does not radiate. Associated signs and symptoms: Pertinent negatives:. Modifying factors: The patient symptoms are alleviated by nothing, the patient symptoms are aggravated by nothing. The patient has not experienced similar symptoms in the past. 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 Denies bowel or urinary problems. Denies weakness to her legs. Denies chest pain. Historical: - Allergies: 09:01 No Known Allergies; iw - PMHx: 09:01 Anxiety; GERD; iw ROS: 09:07 Constitutional: Negative for fever, chills, and weight loss, Cardiovascular: Negative jmm for chest pain, palpitations, and edema, Respiratory: Negative for shortness of breath, cough, wheezing, and pleuritic chest pain. 09:07 Back: Positive for pain with movement. 09:07 All other systems are negative. Exam: 09:07 Constitutional: This is a well developed, well nourished patient who is awake, alert, jmm and in no acute distress. Head/Face: atraumatic. Eyes: EOMI, no conjunctival erythema appreciated ENT: Moist Mucus Membranes Neck: Trachea midline, Supple Chest/axilla: Normal chest wall appearance and motion. Cardiovascular: Regular rate and rhythm. No edema appreciated Respiratory: Normal respirations, no respiratory distress appreciated Abdomen/GI: Non distended, soft 09:07 Back: pain, that is moderate, ROM is painful, muscle spasm, is appreciated in the right subscapular area, left low back and left mid back. 09:07 Musculoskeletal/extremity: ROM: intact in all extremities. 09:07 Skin: Appearance: Color: normal in color. 09:07 Neuro: Orientation: is normal, Mentation: is normal, Memory: is normal. 09:07 Psych: Behavior/mood is pleasant, cooperative. Vital Signs: 09:01 BP 114 / 82; Pulse 94; Resp 16; Temp 97.8; Pulse Ox 100% on R/A; iw MDM: 09:02 Patient medically screened. [facility] 09:10 Data reviewed: vital signs, nurses notes. Counseling: I had a detailed discussion with [facility] the patient and/or guardian regarding: the historical points, exam findings, and any diagnostic results supporting the discharge/admit diagnosis, the need for outpatient follow up. ED course: Patient is alert and non toxic in appearance in the ED. I do not suspect cord compression or cauda equina. . Administered Medications: 09:17 Drug: Ketorolac 30 mg Route: IM; Site: right gluteus; iw 09:17 Drug: Decadron (dexamethasone) 10 mg Route: IM; Site: left gluteus; iw 09:17 Drug: Valium (diazepam) 5 mg Route: PO; iw Disposition: 13:53 Co-signature as Attending Physician, Lencho Macdonald MD I agree with the assessment and kdr plan of care. Disposition Summary: 01/11/22 09:12 Discharge Ordered Location: Home [facility] Condition: Stable [facility] Diagnosis - Muscle spasm of back [facility] Followup: [facility] - With: Private Physician - When: 2 - 3 days - Reason: Recheck today's complaints, Continuance of care, Re-evaluation by your physician Discharge Instructions: - Discharge Summary Sheet jm - Muscle Cramps and Spasms jm - Heat Therapy [facility] Forms: - Work release form jm - Medication Reconciliation Form [facility] - Thank You Letter [facility] - Antibiotic Education [facility] - Prescription Opioid Use [facility] Prescriptions: - Hydroxyzine HCl 50 mg Oral Tablet - take 1 tablet by ORAL route every 8 hours As needed; 20 tablet; Refills: 0, [facility] Product Selection Permitted - Zanaflex 4 mg Oral Tablet - take 1 tablet by ORAL route every 8 hours As needed; 20 tablet; Refills: 0, [facility] Product Selection Permitted Signatures: Lencho Macdonald MD MD [facility] Julio Shaffer PA PA [facility] Kizzy Buckley RN RN iw
[2022-01-11] MEDS ORDERED: KETOROLAC 30 MG/ML INJ ONE (09:16)
[2022-01-11] MEDS ORDERED: DIAZEPAM 5 MG TABLET ONE (09:16)
[2022-01-11] MEDS ORDERED: dexAMETHasone 10 MG/ML VIAL ONE (09:16)
[2022-01-11 09:26] VITALS: BP 114/82; TEMP 97.8; O2SAT 100
== END 2022-01-11 09:18 | disposition home or self-care (01) ==
LOC: ER 08:49
DX: M62.830 Muscle spasm of back (principal)
CPT/HCPCS: 96372; 99282; J1100

== ENCOUNTER 2022-03-14 22:01 | Emergency (ER) | payer SELFPAY ==
[2022-03-14] MEDS ORDERED: THIAMINE 200 MG/2 ML INJ ONE (22:42)
[2022-03-14] MEDS ORDERED: NA CHLORIDE 0.9% 1,000 ML ONE (22:43)
[2022-03-14] MEDS ORDERED: MULTIVITAMINS 10 ML VIAL (INJ) IV ONE (22:43)
[2022-03-14] MEDS ORDERED: FOLIC ACID 5 MG/ML VIAL ONE (22:44)
[2022-03-14 22:49] LABS: Protime INR 1.02
[2022-03-14] MEDS ORDERED: LORazepam 2 MG/ML VIAL ONE (22:55)
[2022-03-14 22:58] LABS: ALT/SGPT 28 U/L (12-78); AST/SGOT 19 U/L (15-37); Albumin 4.2 g/dL (3.4-5.0); Alkaline Phosphatase 112 U/L (45-117); BUN Blood Urea Nitrogen 8 mg/dL (7-18); Bicarbonate 19 mmol/L (21-32); Bilirubin Total 0.2 mg/dL (0.2-1.0); Glomerular Filtration Rate 119 ml/min (=/>90); Glucose Level 91 mg/dL (74-106); Potassium 3.5 mmol/L (3.5-5.1); Protein, Total 8.3 g/dL (6.4-8.2); Sodium Level 140 mmol/L (136-145)
[2022-03-14 22:59] LABS: Bilirubin Direct < 0.1 mg/dL (0-0.2)
[2022-03-14 23:03] LABS: Hematocrit 47.2 % (36.0-45.0); MCV 89.1 fL (80-100)
[2022-03-14 23:04] LABS: Absolute Lymphocytes (CBC) 3.8 K/uL (0.7-4.9); Lymphocytes % 34.2 % (15.3-44.8); MPV 7.4 fL (7.6-11.3)
--- NOTE | 2022-03-14 23:52 | EDPHYS ---
Physician Documentation [facility] Name: Tika Vazquez Age: 36 yrs Sex: Female : 1985 Arrival Date: 03/14/2022 Time: 22:07 Bed 18 Private MD: ED Physician Raffi Lynn HPI: 03/14 23:45 This 36 yrs old Female presents to ER via EMS with complaints of alcohol ko abuse. 23:45 ETOH ABUSE , NOT SUICIDAL. The patient presents with trouble concentrating. Onset: The ko symptoms/episode began/occurred just prior to arrival. Possible causes: alcohol. Associated signs and symptoms: The patient has no apparent associated signs or symptoms. Current symptoms: In the emergency department the patient's symptoms are unchanged from the initial presentation. Patient's baseline: Neuro: alert and fully oriented. Severity of symptoms: At their worst the symptoms were mild in the emergency department the symptoms are unchanged. Historical: - Allergies: 22:11 No Known Allergies; bb - PMHx: 22:11 Anxiety; GERD; bb - PSHx: 22:11 Ligation of fallopian tube; bb - Immunization history:: Adult Immunizations unknown. - Social history:: Smoking status: unknown Patient uses alcohol, patient/guardian reports recent binge of alcohol consumption. - Family history:: not pertinent. ROS: 23:45 Constitutional: Negative for fever, chills, and weight loss, Eyes: Negative for injury, ko pain, redness, and discharge, ENT: Negative for injury, pain, and discharge, Neck: Negative for injury, pain, and swelling, Cardiovascular: Negative for chest pain, palpitations, and edema, Respiratory: Negative for shortness of breath, cough, wheezing, and pleuritic chest pain, Abdomen/GI: Negative for abdominal pain, nausea, vomiting, diarrhea, and constipation, Back: Negative for injury and pain, : Negative for injury, bleeding, discharge, and swelling, MS/Extremity: Negative for injury and deformity, Skin: Negative for injury, rash, and discoloration, Neuro: Negative for headache, weakness, numbness, tingling, and seizure, Allergy/Immunology: Negative for hives, rash, and allergies, Endocrine: Negative for neck swelling, polydipsia, polyuria, polyphagia, and marked weight changes, Hematologic/Lymphatic: Negative for swollen nodes, abnormal bleeding, and unusual bruising. 23:45 Psych: Positive for anxiety, alcohol dependence. Exam: 23:45 Constitutional: This is a well developed, well nourished patient who is awake, alert, ko and in no acute distress. Head/Face: Normocephalic, atraumatic. Eyes: Pupils equal round and reactive to light, extra-ocular motions intact. Lids and lashes normal. Conjunctiva and sclera are non-icteric and not injected. Cornea within normal limits. Periorbital areas with no swelling, redness, or edema. ENT: Nares patent. No nasal discharge, no septal abnormalities noted. Tympanic membranes are normal and external auditory canals are clear. Oropharynx with no redness, swelling, or masses, exudates, or evidence of obstruction, uvula midline. Mucous membranes moist. Neck: Trachea midline, no thyromegaly or masses palpated, and no cervical lymphadenopathy. Supple, full range of motion without nuchal rigidity, or vertebral point tenderness. No Meningismus. Chest/axilla: Normal chest wall appearance and motion. Nontender with no deformity. No lesions are appreciated. Cardiovascular: Regular rate and rhythm with a normal S1 and S2. No gallops, murmurs, or rubs. Normal PMI, no JVD. No pulse deficits. Respiratory: Lungs have equal breath sounds bilaterally, clear to auscultation and percussion. No rales, rhonchi or wheezes noted. No increased work of breathing, no retractions or nasal flaring. Abdomen/GI: Soft, non-tender, with normal bowel sounds. No distension or tympany. No guarding or rebound. No evidence of tenderness throughout. Back: No spinal tenderness. No costovertebral tenderness. Full range of motion. Pelvic Exam: Normal external genitalia. Speculum exam with closed cervical os, no discharge or bleeding noted. Bimanual exam with normal adnexa, no adnexal or cervical motion tenderness. Normal uterus. Skin: Warm, dry with normal turgor. Normal color with no rashes, no lesions, and no evidence of cellulitis. MS/ Extremity: Pulses equal, no cyanosis. Neurovascular intact. Full, normal range of motion. Neuro: Awake and alert, GCS 15, oriented to person, place, time, and situation. Cranial nerves II-XII grossly intact. Motor strength 5/5 in all extremities. Sensory grossly intact. Cerebellar exam normal. Normal gait. Psych: Awake, alert, with orientation to person, place and time. Behavior, mood, and affect are within normal limits. 23:45 ECG was reviewed by the Attending Physician. Vital Signs: 22:08 BP 133 / 90; Pulse 112; Resp 20 S; Pulse Ox 100% on R/A; Weight 70.31 kg (R); Height 5 bb ft. 8 in. (172.72 cm) (R); 22:21 Temp 98.8(O); [facility] 03/15 00:15 BP 106 / 72; Pulse 98; Resp 16; Pulse Ox 97% on R/A; [facility] 03/14 22:08 Body Mass Index 23.57 (70.31 kg, 172.72 cm) bb MDM: 03/14 22:20 Patient medically screened. ko 23:47 Differential Diagnosis altered mental status. Differential Diagnosis: electrolyte ko abnormality, alcohol intoxication, hypoglycemia, overdose, UTI, volume depletion. Data reviewed: vital signs, nurses notes, lab test result(s), EKG. Data interpreted: monitoring manager: rate is 112 beats/min, rhythm is regular, Pulse oximetry: on room air. Test interpretation: by ED physician or midlevel provider: ECG. Counseling: I had a detailed discussion with the patient and/or guardian regarding: the historical points, exam findings, and any diagnostic results supporting the discharge/admit diagnosis, lab results, radiology results, the need for outpatient follow up. 03/14 22:21 Order name: Acetaminophen; Complete Time: 23:40 [facility] 03/14 22:21 Order name: Basic Metabolic Panel; Complete Time: 23:40 [facility] 03/14 22:21 Order name: CBC with Diff; Complete Time: 23:40 [facility] 03/14 22:21 Order name: ETOH Level; Complete Time: 23:40 [facility] 03/14 22:21 Order name: Hepatic Function; Complete Time: 23:40 [facility] 03/14 22:21 Order name: PT-INR; Complete Time: 23:40 [facility] 03/14 22:21 Order name: Ptt, Activated; Complete Time: 23:40 [facility] 03/14 22:21 Order name: Salicylate; Complete Time: 23:40 [facility] 03/14 22:21 Order name: EKG; Complete Time: 22:21 [facility] 03/14 22:21 Order name: EKG - Nurse/Tech; Complete Time: 23:22 [facility] 03/14 22:21 Order name: IV Saline Lock; Complete Time: 22:34 [facility] 03/14 22:21 Order name: Labs collected and sent; Complete Time: 22:34 [facility] 03/14 22:21 Order name: Suicide Screening ([place]); Complete Time: 23:22 [facility] 03/14 22:21 Order name: Urine Dipstick-Ancillary (obtain specimen) [facility] 03/14 22:21 Order name: Urine Test (obtain specimen) [facility] EC:45 Rate is 89 beats/min. Rhythm is regular. QRS [place] is Normal. [place] interval is normal. QRS ko interval is normal. QT interval is normal. No Q waves. T waves are Normal. No ST changes noted. Clinical impression: Normal ECG and No evidence of ischemia. Interpreted by me. Reviewed by me. Administered Medications: 22:43 Drug: Thiamine 100 mg Route: IV; Rate: bolus; Site: right antecubital; [facility] 03/15 00:17 Follow up: Response: No adverse reaction [facility] 03/14 22:43 Drug: Banana Bag - (NS 0.9% 1000 ml, foLIC Acid 1 mg, Thiamine 100 mg, Multivitamin 1 5 amp) Route: IV; Rate: 500 ml/hr; Site: right antecubital; 03/15 00:17 Follow up: IV Status: Completed infusion; IV Intake: 1000ml [facility] 03/14 23:00 Drug: Ativan (LORazepam) 1 mg Route: IVP; Site: right antecubital; [facility] 03/15 00:17 Follow up: Response: No adverse reaction [facility] Disposition Summary: 03/14/22 23:51 Discharge Ordered Location: Home ko Problem: new ko Symptoms: have improved ko Condition: Stable ko Diagnosis - Anxiety disorder, unspecified ko - Alcohol abuse with intoxication ko Followup: ko - With: Private Physician - When: 2 - 3 days - Reason: Recheck today's complaints, Continuance of care, Re-evaluation by your physician Discharge Instructions: - Discharge Summary Sheet ko - Alcohol Intoxication ko - Alcohol Intoxication, [id number] ko - Generalized Anxiety Disorder, Adult ko - Supporting Someone With Anxiety ko - Managing Anxiety, Adult ko Forms: - Medication Reconciliation Form [facility] - Thank You Letter ko - Antibiotic Education ko - Prescription Opioid Use ko Signatures: Dispatcher [employer] Raffi Donohue MD MD cha Ballard, Brenda RN RN Nila Jaramillo RN RN sm5
--- NOTE | 2022-03-14 23:52 | ER ---
Nurse's Notes [facility] Name: Tika Vazquez Age: 36 yrs Sex: Female : 1985 Arrival Date: 03/14/2022 Time: 22:07 Bed 18 Private MD: Diagnosis: Anxiety disorder, unspecified;Alcohol abuse with intoxication Presentation: 03/14 22:08 Chief complaint: EMS states: they were toned out for report of pt with alcohol abuse bb after drinking all day. Coronavirus screen: At this time, the client does not indicate any symptoms associated with coronavirus-19. Ebola Screen: No symptoms or risks identified at this time. Initial Sepsis Screen: Does the patient meet any 2 criteria? No. Patient's initial sepsis screen is negative. Does the patient have a suspected source of infection? No. Patient's initial sepsis screen is negative. Risk Assessment: Do you want to hurt yourself or someone else? Patient reports no desire to harm self or others. Onset of symptoms was March 14, 2022. 22:08 Method Of Arrival: EMS: [facility] bb 22:08 Acuity: MONIQUE 2 bb Triage Assessment: 22:21 General: Appears in no apparent distress. Behavior is anxious, crying. Pain: Denies sm5 pain. Neuro: Level of Consciousness is awake, alert, obeys commands, Oriented to person, place, time, situation. Cardiovascular: Capillary refill < 3 seconds Patient's skin is warm and dry. Respiratory: Airway is patent Trachea midline Respiratory effort is even, unlabored. Historical: - Allergies: 22:11 No Known Allergies; bb - PMHx: 22:11 Anxiety; GERD; bb - PSHx: 22:11 Ligation of fallopian tube; bb - Immunization history:: Adult Immunizations unknown. - Social history:: Smoking status: unknown Patient uses alcohol, patient/guardian reports recent binge of alcohol consumption. - Family history:: not pertinent. Screenin:22 Abuse screen: Denies threats or abuse. Denies injuries from another. Nutritional sm5 screening: No deficits noted. Tuberculosis screening: No symptoms or risk factors identified. Fall Risk None identified. Assessment: 22:30 Reassessment: see triage assessment. 5 23:30 Reassessment: No changes from previously documented assessment. 5 03/15 00:16 Reassessment: Patient and/or family updated on plan of care and expected duration. Pain sm5 level reassessed. General: Appears in no apparent distress. Behavior is calm, cooperative. Vital Signs: 03/14 22:08 BP 133 / 90; Pulse 112; Resp 20 S; Pulse Ox 100% on R/A; Weight 70.31 kg (R); Height 5 bb ft. 8 in. (172.72 cm) (R); 22:21 Temp 98.8(O); 5 03/15 00:15 BP 106 / 72; Pulse 98; Resp 16; Pulse Ox 97% on R/A; sm5 03/14 22:08 Body Mass Index 23.57 (70.31 kg, 172.72 cm) ED Course: 03/14 22:07 Patient arrived in ED. 22:11 Triage completed. 22:12 Arm band placed on Patient placed in an exam room, on a stretcher, on pulse oximetry. 22:14 Nila Shelton RN is Primary Nurse. [facility] 22:20 Raffi Lynn MD is Attending Physician. [facility] 22:22 Patient has correct armband on for positive identification. Bed in low position. Call 5 light in reach. Side rails up X2. 22:30 Inserted saline lock: 20 gauge in right antecubital area, using aseptic technique. 5 Blood collected. 22:34 Salicylate Sent. 5 22:34 Ptt, Activated Sent. 5 22:34 PT-INR Sent. 5 22:34 Hepatic Function Sent. 5 22:34 ETOH Level Sent. 5 22:34 CBC with Diff Sent. 5 22:34 Basic Metabolic Panel Sent. 5 22:34 Acetaminophen Sent. 5 03/15 00:16 No provider procedures requiring assistance completed. IV discontinued, intact, 5 bleeding controlled, No redness/swelling at site. Pressure dressing applied. Administered Medications: 03/14 22:43 Drug: Thiamine 100 mg Route: IV; Rate: bolus; Site: right antecubital; [facility] 03/15 00:17 Follow up: Response: No adverse reaction [facility] 03/14 22:43 Drug: Banana Bag - (NS 0.9% 1000 ml, foLIC Acid 1 mg, Thiamine 100 mg, Multivitamin 1 sm5 amp) Route: IV; Rate: 500 ml/hr; Site: right antecubital; 03/15 00:17 Follow up: IV Status: Completed infusion; IV Intake: 1000ml 5 03/14 23:00 Drug: Ativan (LORazepam) 1 mg Route: IVP; Site: right antecubital; 5 03/15 00:17 Follow up: Response: No adverse reaction 5 Medication: 00:16 VIS not applicable for this client. sm5 Intake: 00:17 IV: 1000ml; Total: 1000ml. 5 Outcome: 03/14 23:51 Discharge ordered by MD. connell 03/15 00:16 Discharged to home ambulatory. 5 Condition: stable Discharge instructions given to patient, Instructed on discharge instructions, follow up and referral plans. Demonstrated understanding of instructions, follow-up care. 00:17 Patient left the ED. 5 Signatures: Raffi Lynn MD MD cha Ballard, Brenda, RN RN Nila Jaramillo, RN RN 5
[2022-03-15 00:46] VITALS: TEMP 98.8
[2022-03-15 00:48] VITALS: BP 106/72; O2SAT 97
--- NOTE | 2022-03-15 08:19 | EKG ---
Test Date: 2022-03-14 Test Time: 22:58:44 [employer] Supervisor: ABRAHAM MEASUREMENT RESULTS: Intervals: Rate: 89 TN: 140 QRSD: 88 QT: 398 QTc: 484 [place]: P: 47 TN: 140 QRS: 61 T: 68 INTERPRETIVE STATEMENTS: Normal sinus rhythm Septal infarct, age undetermined Abnormal ECG Compared to ECG 11/27/2021 20:08:22 Myocardial infarct finding now present Electronically Signed On 03-15-22 08:18:13 CDT by Aristides David
--- OUTSIDE RECORDS SUMMARY | 2022-03-24 00:44 | XMS REPORT | Continuity of Care Document ---
:1985 Author Organization [facility] Address [facility] [address] 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 Medica l without without Center psychotic psychotic features, features, unspecifie unspecifie d whether d whether recurrent recurrent Smoker Smoker Problem Active Common Spirit [facility] Hyperchole 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 [facility] Chelsie Chelsie Problem Active Common albicans albicans Spirit infection infection - CH I [facility] 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 Medications Ordered Filled Start Stop Current Ordering Indication Dosage Frequency Signature Comments Components Source Medication Medication Date Date Medication? Clinician (SIG) Name Name Alprazolam Alprazolam 2020-0 Yes Judy 1 tablet Common 04-17 [place] [facility] 00:00: - [facility] 00 [facility] Nystatin Nystatin 2019-0 2020- No Judy 1 Com mon 04-17 [place] applicatio Spirit 00:00: 00:00 n - CHI 00 :00 [facility] Ciprofloxac Ciprofloxac 2020-0 2020- No Judy 1 tablet Common in HCl in HCl 04-17 [place] [facility] 00:00: 00:00 - CHI 00 :00 [facility] Fluconazole Fluconazole 2020-0 2020- No Judy 1 tablet Common 8-14 08-17 [place] [facility] 00:00: 00:00 - CHI 00 :00 [facility] Albuterol Albuterol 2018- Yes Judy 2 puffs as Common Sulfate HFA Sulfate HFA 2-12 [place] needed Spirit 00:00: - CHI 00 [facility] Omeprazole Omeprazole 2018- Yes Judy 1 capsule Common 2-05 [place] 30 minutes Spirit 00:00: before - CHI 00 morning [facility] Trazodone Trazodone Yes Judy 1 tablet Common HCl HCl [place] at bedtime [facility] Gabapentin Gabapentin Yes Judy TAKE 1 Common [place] CAPSULE BY [facility] THREE [facility] Armodafinil Armodafinil Yes Judy 1 tablet Common [place] [facility] Procedures This patient has no known procedures. Encounters Start End Encounter Admission Attending Care Care Encounter Source Date/Time Date/Time Type Type Clinicians Facility Department ID 2021-09-29 Outpatient [place], STLMLC STLC [id number] Common 12:04:12 Judy 00510 [facility] 2021-09-29 Outpatient [place], STLMLC STLMLC [id number] Common 11:37:03 Judy 65875 [facility] 2021-09-29 Outpatient [place], STLMLC STLMLC [id number] Common 11:33:08 Judy 43212 [facility] 2021-09-29 Outpatient [place], STLMLC STLMLC [id number] Common 11:09:44 Estella 69616 [facility] 2021-09-29 Outpatient [place], STLMLC STLMLC [id number] Common 11:04:27 Estella 40636 [facility] 2021-09-29 Outpatient [place], STLMLC STLMLC [id number] Common 11:02:15 Estella 76256 [facility] 2021-09-29 Outpatient [place], STLMLC STLC [id number] Common 11:00:50 Estella 55177 [facility] 2020-04-17 2020-04-17 [id number] Common 08:20:00 08:20:[address] [facility] 2019-10-08 2019-10-08 [id number] Common 13:23:00 13:23:[address] [facility] 2019 2019 [id number] Common 13:00:00 13:00:[address] [facility] 2019-10-01 2019-10-01 [id number] Common 15:51:00 15:51:[address] [facility] 2019-09-24 2019-09-24 [id number] Common 15:00:00 15:00:[address] [facility] 2019-08-15 2019-08-15 [facility] [id number] Common 15:20:00 15:20:[address] [facility] 2019-08-08 2019-08-08 [id number] Common 11:20:00 11:20:[address] [facility] Results This patient has no known results.
== END 2022-03-15 00:17 | disposition home or self-care (01) ==
LOC: ER 22:01
DX: F10.129 Alcohol abuse with intoxication, unspecified (principal); F41.9 Anxiety disorder, unspecified
CPT/HCPCS: 36415; 80048; 80076; 80320; 80329; 85025; 85610; 85730; 93005; 96365; 96366; 96375; 99284; J3411; J7030

== ENCOUNTER 2022-05-11 07:08 | Emergency (ER) | payer OTHER, SELFPAY ==
--- OUTSIDE RECORDS SUMMARY | 2022-05-11 07:11 | XMS REPORT | Continuity of Care Document ---
:1985 Author Organization [facility] t Address [address] [place] [address] Dr. [address] [place] [address] Care Team Providers Name Role Phone Judy Leiva Attending Clinician Unavailable Estella Jones Attending Clinician Unavailable Problems Condition Condition Condition Status Onset Resolution Last Treating Co mments Source Name Details Category Date Date Treatment Clinician Date Chronic Chronic Problem Active Common GERD GERD [facility] Current Current Problem Active 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 [facility] major major St depressive depressive Amy kes disorder disorder Medica l without without Center psychotic psychotic features, features, unspecifie unspecifie d whether d whether recurrent recurrent Smoker Smoker Problem Active Common Spirit [facility] Hyperchole 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 [facility] Chelsie Chelsie Problem Active Common albicans albicans Spirit infection infection - CH I 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 Medications Ordered Filled Start Stop Current Ordering Indication Dosage Frequency Signature Comments Components Source Medication Medication Date Date Medication? Clinician (SIG) Name Name Alprazolam Alprazolam 2020-0 Yes Judy 1 tablet Common 04-17 [place] [facility] 00:00: - CHI 00 [facility] Nystatin Nystatin 2020-0 2020- No Judy 1 Com mon 04-17 [place] applicatio Spirit 00:00: 00:00 n - CHI 00 :00 [facility] Ciprofloxac Ciprofloxac 2020-0 2020- No Judy 1 tablet Common in HCl in HCl 8-14 08-19 [place] [facility] 00:00: 00:00 - CHI 00 :00 [facility] Fluconazole Fluconazole 2020-0 2020- No Judy 1 tablet Common 8-14 08-17 [place] Spirit 00:00: 00:00 - CHI 00 :00 [facility] Albuterol Albuterol 2018- Yes Judy 2 puffs as Common Sulfate HFA Sulfate HFA 2-12 [place] needed Spirit 00:00: - CHI 00 [facility] Omeprazole Omeprazole 2018-09 Yes Judy 1 capsule Common 2-05 [place] 30 minutes Spirit 00:00: before - CHI 00 morning [facility] Trazodone Trazodone Yes Judy 1 tablet Common HCl HCl [place] at bedtime [facility] Gabapentin Gabapentin Yes Judy TAKE 1 Common [place] CAPSULE BY [facility] MOUTH [facility] THREE [facility] Armodafinil Armodafinil Yes Judy 1 tablet Common [place] [facility] Procedures This patient has no known procedures. Encounters Start End Encounter Admission Attending Care Care Encounter Source Date/Time Date/Time Type Type Clinicians Facility Department ID 2021-09-29 Outpatient [place], STLMLC STLMLC [id number] Common 12:04:12 Judy 93057 [facility] 2021-09-29 Outpatient [place], STLMLC STLMLC [id number] Common 11:37:03 Judy 76301 [facility] 2021-09-29 Outpatient [place], STLMLC STLMLC [id number] Common 11:33:08 Judy 08725 [facility] 2021-09-29 Outpatient [place], STLMLC STLMLC [id number] Common 11:09:44 Setella 35567 [facility] 2021-09-29 Outpatient [place], STLMLC STLMLC [id number] Common 11:04:27 Estella 74900 [facility] 2021-09-29 Outpatient [place], STLMLC STLMLC [id number] Common 11:02:15 Estella 20047 [facility] 2021-09-29 Outpatient [place], STLMLC STLMLC [id number] Common 11:00:50 Estella 72730 [facility] 2020-04-17 2020-04-17 [id number] Common 08:20:00 08:20:[address] [facility] [address] [facility] 2019-10-08 2019-10-08 [facility] [id number] Common 13:23:00 13:23:[address] [facility] [address] [facility] 2019 2019 [facility] [id number] Common 13:00:00 13:00:[address] [facility] [address] [facility] 2019-10-01 2019-10-01 [facility] [id number] Common 15:51:00 15:51:[address] [facility] [address] [facility] 2019-09-24 2019-09-24 [facility] [id number] Common 15:00:00 15:00:[address] [facility] 2019-08-15 2019-08-15 [facility] [id number] Common 15:20:00 15:20:[address] [facility] [address] [facility] 2019-08-08 2019-08-08 [id number] Common 11:20:00 11:20:[address] [facility] Results This patient has no known results.
--- NOTE | 2022-05-11 07:25 | EDPHYS ---
Physician Documentation [facility] Name: Tika Vazquez Age: 36 yrs Sex: Female : 1985 Arrival Date: 05/11/2022 Time: 07:10 Bed Waiting Private MD: ED Physician Gabe Taylor HPI: 05/11 07:32 This 36 yrs old Female presents to ER via Unassigned with complaints of Arm Problem - ms3 swelling, Rash. 07:32 36-year-old female with no past medical history presents for left arm pain and rash ms3 that has been ongoing for 2 days. Patient states pain is an 8/10 described as throbbing. Patient states holding arm close to her abdomen and wrapping her arm have made the pain better. Patient denies inciting factors. Patient has taken Tylenol and ibuprofen without relief. Patient denies fevers, chills, nausea, vomiting, diarrhea.. Historical: - PMHx: 07:40 Anxiety; GERD; iw - PSHx: 07:40 Ligation of fallopian tube; iw ROS: 07:32 Constitutional: Negative for fever, and chills. Eyes: Negative for injury, pain, ms3 redness, and discharge, Neck: Negative for injury, pain, and swelling, Cardiovascular: Negative for chest pain, and palpitations. Respiratory: Negative for shortness of breath, cough, wheezing, and pleuritic chest pain, Abdomen/GI: Negative for abdominal pain, nausea, vomiting, diarrhea, and constipation, MS/Extremity: Negative for injury and deformity. 07:32 Skin: Positive for rash, swelling. 07:32 All other systems are negative. Exam: 07:32 Constitutional: This is a well developed, well nourished patient who is awake, alert, ms3 and in no acute distress. Head/Face: Normocephalic, atraumatic. Neck: Trachea midline, no cervical lymphadenopathy. Supple, full range of motion without nuchal rigidity, or vertebral point tenderness. No Meningismus. Cardiovascular: Regular rate and rhythm with a normal S1 and S2. No gallops, murmurs, or rubs. Normal PMI, no JVD. No pulse deficits. Respiratory: Lungs have equal breath sounds bilaterally, clear to auscultation and percussion. No rales, rhonchi or wheezes noted. No increased work of breathing, no retractions or nasal flaring. Abdomen/GI: Soft, non-tender, with normal bowel sounds. No distension or tympany. No guarding or rebound. No evidence of tenderness throughout. MS/ Extremity: Pulses equal, no cyanosis. Neurovascular intact. Full, normal range of motion. Psych: Awake, alert, with orientation to person, place and time. Behavior, mood, and affect are within normal limits. 07:32 Skin: cellulitis, that is moderate, on the Left forearm, No fluctuance, 4x4cm induration. Vital Signs: 07:39 BP 110 / 75; Pulse 100; Resp 16; Temp 98.1; Pulse Ox 97% on R/A; iw MDM: 07:23 Patient medically screened. ms3 07:32 Data reviewed: vital signs, nurses notes, and as a result, I will discharge patient. ms3 Counseling: I had a detailed discussion with the patient and/or guardian regarding: the historical points, exam findings, and any diagnostic results supporting the discharge/admit diagnosis, the need for outpatient follow up, to return to the emergency department if symptoms worsen or persist or if there are any questions or concerns that arise at home. Special discussion: I discussed with the patient/guardian in detail that at this point there is no indication for admission to the hospital. It is understood, however, that if the symptoms persist or worsen the patient needs to return immediately for re-evaluation. Administered Medications: 07:41 Drug: HYDROcodone-acetaminophen 5 mg-325 mg 1 tabs Route: PO; iw 08:00 Follow up: Response: No adverse reaction iw Disposition Summary: 05/11/22 07:24 Discharge Ordered Location: Home ms3 Condition: Stable ms3 Diagnosis - Cellulitis of left upper limb ms3 - Pain in left arm ms3 Followup: ms3 - With: Marcial Piper, DO - When: 2 - 3 days - Reason: Recheck today's complaints Discharge Instructions: - Discharge Summary Sheet ms3 - Musculoskeletal Pain ms3 - Cellulitis, Adult, [id number] ms3 Forms: - Medication Reconciliation Form ms3 - Thank You Letter ms3 - Antibiotic Education ms3 - Prescription Opioid Use ms3 Prescriptions: - Doxycycline Hyclate 100 mg Oral Tablet - take 1 tablet by ORAL route every 12 hours; 20 tablet; Refills: 0, Product ms3 Selection Permitted - Ibuprofen 600 mg Oral Tablet - take 1 tablet by ORAL route every 6 hours As needed take with food; 30 tablet; ms3 Refills: 0, Product Selection Permitted Signatures: Kizzy Buckley RN RN Gabe Shah DO DO ms3 Corrections: (The following items were deleted from the chart) 07:33 07:32 36-year-old female with no past medical history presents for. ms3 ms3
--- NOTE | 2022-05-11 07:40 | ER ---
Nurse's Notes [facility] Name: Tika Vazquez Age: 36 yrs Sex: Female : 1985 Arrival Date: 05/11/2022 Time: 07:10 Bed Waiting Private MD: Diagnosis: Cellulitis of left upper limb;Pain in left arm Presentation: 05/11 07:39 Acuity: MONIQUE 4 iw 07:40 Chief complaint: Patient states: cellulitis to left forearm. Coronavirus screen: At iw this time, the client does not indicate any symptoms associated with coronavirus-19. Ebola Screen: Patient negative for fever greater than or equal to 101.5 degrees Fahrenheit, and additional compatible Ebola Virus Disease symptoms Patient denies exposure to infectious person. Patient denies travel to an Ebola-affected area in the 21 days before illness onset. No symptoms or risks identified at this time. Initial Sepsis Screen: Does the patient meet any 2 criteria? No. Patient's initial sepsis screen is negative. Does the patient have a suspected source of infection? No. Patient's initial sepsis screen is negative. Risk Assessment: Do you want to hurt yourself or someone else? Patient reports no desire to harm self or others. Onset of symptoms was May 11, 2022. 07:40 Method Of Arrival: Ambulatory iw Triage Assessment: 07:30 General: Appears in no apparent distress. comfortable, Behavior is calm, cooperative. iw Historical: - PMHx: 07:40 Anxiety; GERD; iw - PSHx: 07:40 Ligation of fallopian tube; iw Screenin:38 Abuse screen: Denies threats or abuse. Denies injuries from another. Nutritional iw screening: No deficits noted. Tuberculosis screening: No symptoms or risk factors identified. Fall Risk None identified. Assessment: 07:30 General: Appears in no apparent distress. comfortable, Behavior is calm, cooperative. iw Pain: Complains of pain in left arm. Neuro: Level of Consciousness is awake, alert, obeys commands, Oriented to person, place, time, situation, Moves all extremities. Full function. Respiratory: Respiratory effort is even, unlabored, Respiratory pattern is regular. Derm: Skin is intact, is healthy with good turgor. Musculoskeletal: Range of motion: intact in all extremities. Vital Signs: 07:39 BP 110 / 75; Pulse 100; Resp 16; Temp 98.1; Pulse Ox 97% on R/A; iw ED Course: 07:10 Patient arrived in ED. am2 07:13 Gabe Taylor DO is Attending Physician. ms3 07:23 Marcial Piper DO is Referral Physician. ms3 07:30 Kizzy Buckley, RN is Primary Nurse. iw 07:38 No provider procedures requiring assistance completed. Patient did not have IV access iw during this emergency room visit. 07:39 Triage completed. iw 07:40 Arm band placed on. iw Administered Medications: 07:41 Drug: HYDROcodone-acetaminophen 5 mg-325 mg 1 tabs Route: PO; iw 08:00 Follow up: Response: No adverse reaction iw Medication: 07:30 VIS not applicable for this client. iw Outcome: 07:24 Discharge ordered by MD. ms3 07:38 Discharged to home ambulatory. iw 07:38 Condition: good 07:38 Discharge instructions given to patient, Instructed on discharge instructions, follow up and referral plans. medication usage, Demonstrated understanding of instructions, follow-up care, medications, Prescriptions given X 1. 07:39 Patient left the ED. iw Signatures: Kizzy Buckley, RN RN iw Emani Tinoco am2 Gabe Taylor DO DO ms3
[2022-05-11] MEDS ORDERED: HYDROCODONE/APAP 5/325 MG TAB ONE (07:43)
[2022-05-11 08:03] VITALS: BP 110/75; TEMP 98.1; O2SAT 97
== END 2022-05-11 07:39 | disposition home or self-care (01) ==
LOC: ER 07:08
DX: L03.114 Cellulitis of left upper limb (principal); M79.602 Pain in left arm
CPT/HCPCS: 99283

== ENCOUNTER 2022-10-30 13:31 | Inpatient (IN) | payer OTHER, SELFPAY ==
--- OUTSIDE RECORDS SUMMARY | 2022-10-30 13:35 | XMS REPORT | Continuity of Care Document ---
:1985 Author Organization [facility] t Address [address] [place] [address] Care Team Providers Name Role Phone Pcp, Patient Does Not Have A Primary Care Physician [id number] Judy Leiva Attending Clinician Unavailable Estella Jones Attending Clinician Unavailable Moises MCIGNNIS Attending Clinician Unavailable Moises Ibrahim Attending Clinician Oleg Mcintosh Attending Clinician OLEG CONTRERAS Attending Clinician Unavailable OLEG CONTRERAS Admitting Clinician Unavailable Payers Payer Name Policy Type Policy Number Effective Date Expiration Date Olena JIMENEZ [id number] 2022 NON-CONTRACT 00:00:00 GENERIC Problems Condition Condition Condition Status Onset Resolution Last Treating Co mments Source Name Details Category Date Date Treatment Clinician Date Injury of Injury of Disease Active Uni vers left heel left heel 09-07 ity of 00:00: [place] 00 Medical Branch Chronic Chronic Problem Active Common GERD GERD Spirit [facility] Current Current Problem Active 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 - [facility] depressive depressive Amy kes disorder disorder Medica l without without Center psychotic psychotic features, features, unspecifie unspecifie d whether d whether recurrent recurrent Smoker Smoker Problem Active Common Spirit - [facility] Hyperchole 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 [facility] Chelsie Chelsie Problem Active Common albicans albicans Spirit infection infection - [facility] 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 - [facility] Dysuria Dysuria Diagnosis Active Commo n [facility] Wheezing Wheezing Problem Active Commo n [facility] Allergies, Adverse Reactions, Alerts Allergy Allergy Status Severity Reaction(s) Onset Inactive Treating Comm ents Source Name Type Date Date Clinician NO KNOWN Drug Active Univers ALLERGIE Class ity of [facility] Social History Social Habit Start Date Stop Date Quantity Comments Source History of Occasional tobacco [facility] sit of tobacco use smoker [facility] Exposure to 2022-05-01 2022-05-11 Not sure [facility] SARS-CoV-2 00:00:00 11:30:00 [facility] (event) [place] Alcohol intake 2022-04-08 2022-04-08 0 /d [facility] 00:00:00 00:00:00 [facility] Sex Ass[birth year] At [birth year] Universit y of 00:00:00 00:00:00 [facility] Smoking Status Start Date Stop Date Source Occasional tobacco smoker [facility] Medications Ordered Filled Start Stop Current Ordering Indication Dosage Frequency Signature Comments Components Source Medication Medication Date Date Medication? Clinician (SIG) Name Name ketorolac 2021- No 30mg 30 mg, Unive rs (TORADOL) 05-11 Intramuscu ity of injection 19:00: 18:22 lar, ONCE, [place] 30 mg 00 :00 1 dose, On Medical Mon05/11/22 Branch at 1400, [place] cefTRIAXone 2021- No 1000mg 1,000 mg, Univers (ROCEPHIN) 05-11 Intramuscu it y of injection 18:45: 18:23 lar, ONCE, [place] 1,000 mg 00 :00 1 dose, On Medic al Mon05/11/22 Branch at 1345, [place]
Re ason for Anti-Infec tive: Documented Infection< br>Documen kae Infection Site: Skin / Soft Tissue
Duration of Therapy: Other (see Comments) ibuprofen Yes [id number] 600mg Take 1 Univers 600 mg 05-11 tablet by ity of tablet 00:00: mouth [place] 00 every 6 Medical (six) Branch hours as needed for Pain (scale 4-6). cephALEXin 2021- No [id number] 500mg Take 1 Univers (KEFLEX) 05-11 [id number] capsule by it y of 500 mg 00:00: 04:59 mouth in [place] capsule 00 :00 the Medical morning Branch and 1 capsule at noon and 1 capsule in the evening. Do all this for 10 days. iopamidol 2021- No [id number] 70mL 70 mL, U nivers (ISOVUE 04-08 Intravenou ity o f 370-500 mL) 18:30: 18:30 s, ONCE, 1 [place] injection 00 :00 dose, On Medica l 70 mL Mon04/08/22 Branch at 1330, Routine traMADoL No 50mg 50 mg, Univer s (ULTRAM) 04-08 Oral, ity of tablet 50 18:30: 17:23 ONCE, 1 [place] mg 00 :00 dose, On Medical Mon04/08/22 Branch at 1330, Routine ondansetron 2021- No 4mg 4 mg, Univ ers (ZOFRAN-ODT 04-08 Oral, ity of ) 16:45: 15:58 ONCE, 1 [place] disintegrat 00 :00 dose, On [facility] lisa ing tablet Mon04/08/22 Bra nch 4 mg at 1145, Routine maalox:diph 2021- No 15mL 15 mL, Uni vers enhydrAMINE 04-08 Oral, ity of :lidocaine 15:45: 15:58 ONCE, 1 [place] as 2 % viscous 00 :00 dose, On Medi lisa 1:1:1 Mon04/08/22 Branch (FIRST-MOUT at 1045, [facility]) Routine oral suspension 15 mL esomeprazol Yes [id number] 40mg Take 1 Univers e 40 mg 8-05 capsule by ity of capsule 00:00: mouth [place] 00 daily with Medical breakfast. Branch esomeprazol Yes [id number] 40mg Take 1 Univers e 40 mg 8-05 capsule by ity of capsule 00:00: mouth [place] 00 daily with Medical breakfast. Branch sucralfate 2021- No [id number] 1g Take 1 Univers 1 gram 04-08 tablet by ity of tablet 00:00: 04:59 mouth [place] 00 :00 before Medical meals and Branch at bedtime for 15 days. Alprazolam Alprazolam Yes Judy 1 tablet Common 04-17 [place] Spirit 00:00: - [facility] 00 [facility] Nystatin Nystatin 2020- No Judy 1 Com mon 04-17 [place] applicatio Spirit 00:00: 00:00 n - [facility] 00 :00 [facility] Ciprofloxac Ciprofloxac 2020- No Judy 1 tablet Common in HCl in HCl 04-17 [place] Spirit 00:00: 00:00 - [facility] 00 :00 [facility] Fluconazole Fluconazole 2020- No Judy 1 tablet Common 04-17 [place] Spirit 00:00: 00:00 - [facility]I 00 :00 [facility] Albuterol Albuterol 2018- Yes Judy 2 puffs as Common Sulfate HFA Sulfate HFA 2-12 [place] needed Spirit 00:00: - [facility] 00 [facility] Omeprazole Omeprazole 2018- Yes Judy 1 capsule Common 2-05 [place] 30 minutes Spirit 00:00: before - CHI 00 morning [facility] Trazodone Trazodone Yes Judy 1 tablet Common HCl HCl [place] at bedtime [facility] Gabapentin Gabapentin Yes Judy TAKE 1 Common [place] CAPSULE BY Spirit MOUTH - [facility] Armodafinil Armodafinil Yes Judy 1 tablet Common [place] [facility] Vital Signs Vital Name Observation Time Observation Value Comments Source Systolic blood 2022-05-11 16:31:00 134 mm[facility]Hg[facility] Diastolic blood 2022-05-11 16:31:00 87 mm[Hg] [facility] [place] Heart rate 2022-05-11 16:31:00 110 /min [facility] Body temperature 2022-05-11 16:31:00 36.67 [facility] Respiratory rate 2022-05-11 16:31:00 18 /min [facility] Body height 2022-05-11 16:31:00 172.7 cm [facility] Body weight 2022-05-11 16:31:00 58.968 kg [facility] BMI 2022-05-11 16:31:00 19.77 kg/m2 [facility] Oxygen saturation in 2022-05-11 16:31:00 98 /min [place] [facility] Arterial blood by [place] [facility] Pulse oximetry Branch Systolic blood 2022-04-08 18:00:00 132 mm[Hg] [facility] Diastolic blood 2022-04-08 18:00:00 91 mm[Hg] [facility] Heart rate 2022-04-08 18:00:00 83 /min [facility] Respiratory rate 2022-04-08 18:00:00 17 /min [facility] Oxygen saturation in 2022-04-08 18:00:00 100 /min [facility] Arterial blood by [place] [facility] Pulse oximetry Branch Body temperature 2022-04-08 15:23:00 36.56 [facility] Body height 2022-04-08 15:23:00 172.7 cm [facility] Body weight 2022-04-08 15:23:00 59.421 kg [facility] BMI 2022-04-08 15:23:00 19.92 kg/m2 [facility] Procedures Procedure Date / Time Performed Performing Clinician [facility] e CONSENT/REFUSAL FOR 2022-05-11 16:27:56 Doctor Unassigned, No Un [facility] DIAGNOSIS AND Name [facility] TREATMENT CT ABDOMEN PELVIS W 2022-04-08 17:25:14 Oleg Contreras [facility] CONTRAST [facility] Branch LIPASE 2022-04-08 17:00:00 Oleg Contreras [facility] COMP. METABOLIC PANEL 2022-04-08 17:00:00 Oleg Contreras [facility] ([id number]) [facility] CBC WITH DIFF 2022-04-08 17:00:00 Oleg Contreras [facility] POCT TEST 2022-04-08 15:51:00 Oleg Contreras [facility]i ty [facility] URINALYSIS 2022-04-08 15:49:00 Oleg Contreras University o f [facility] NOTICE OF PRIVACY 2022-04-08 15:18:52 Doctor Unassigned, No Univ [facility] PRACTICES Name Medical Branch Encounters Start End Encounter Admission Attending Care Care Encounter Source Date/Time Date/Time Type Type Clinicians Facility Department ID 2021-09-29 Outpatient [place], STLMLC STLC [id number] Common 12:04:12 Judy 58821 [facility] 2021-09-29 Outpatient [place], STLMLC STLC [id number] Common 11:37:03 Judy 62984 [facility] 2021-09-29 Outpatient [place], STLMLC STLC [id number] Common 11:33:08 Judy 10758 [facility] 2021-09-29 Outpatient Jones, STLMLC STLC [id number] Common 11:09:44 Estella 79264 [facility] 2021-09-29 Outpatient Jones, STLMLC STLC [id number] Common 11:04:27 Estella 97991 [facility] 2021-09-29 Outpatient Joens, STLMLC STLMLC [id number] Common 11:02:15 Estella 80034 [facility] 2021-09-29 Outpatient Jones, STLMLC STLC [id number] Common 11:00:50 Estella 30832 [facility] 2022-05-11 2022-05-11 Emergency X Moises MCGINNIS RUST ERT [id number] [facility] 11:31:00 13:27:00 ity of [facility] 2022-05-11 2022-05-11 Emergency Moises Mcginnis RUST [id number] [facility] 11:31:00 13:27:00 Tonja VILLA [id number] i [facility] [id number] [facility] [id number] [place] [address] Branch 2022-04-08 2022-04-08 Emergency [facility] [id number] Univers 10:25:00 13:30:00 [id number] [facility] [id number] [facility] [id number] [facility] 084 Branch 2022-04-08 2022-04-08 Emergency [facility] [id number] Univers 10:25:00 13:30:00 OLEG ity [facility] 2020-04-17 2020-04-17 [facility] [id number] Common 08:20:00 08:20:[address] [facility] [address] Spir [address] Road [facility] 2019-10-08 2019-10-08 Out[facility] [id number] Common 13:23:00 13:23:[address] [facility] [address] Spir it Road [facility] 2019 2019 [facility] [id number] Common 13:00:00 13:00:[address] [facility] [address] Spir it Road [facility] 2019-10-01 2019-10-01 Outpatient [facility] [id number] Common 15:51:00 15:51:[address] [facility] [address] Spir it Road [facility] 2019-09-24 2019-09-24 [facility] [id number] Common 15:00:00 15:00:[address] [facility] [address] Spir [address] Road [facility] 2019-08-15 2019-08-15 [facility] [id number] Common 15:20:00 15:20:[address] [facility] [address] Sp[address] Road [facility] 2019-08-08 2019-08-08 Out[facility] [id number] Common 11:20:00 11:20:[address] [facility] [address] Spir [address] Road [facility] Results Test Description Test Time Test Comments Results Result Comments Source COMP. METABOLIC PANEL (47890) 2022-04-08 17:18:30 Test Item Value Reference Range Interpretation Comme nts NA (test code = 7266402568) 138 mmol/L 135-145 K (test code = 0605594606) 4.0 mmol/L 3.5-5 CL (test code = 0549109369) 102 mmol/L 98-108 CO2 TOTAL (test code = 28 mmol/L 23-31 1208388291) AGAP (test code = 5742131851) 2-16 BUN (test code = 2292120513) 11 mg/dL 7-23 GLUCOSE (test code = 9636291494) 90 mg/dL 70-110 CREATININE (test code = 0.53 mg/dL 0.5-1.04 3353766281) TOTAL BILI (test code = 0.5 mg/dL 0.1-1.3 6528381649) CALCIUM (test code = 9042403733) 9.1 mg/dL 8.6-10.6 T PROTEIN (test code = 7.2 g/dL 6.3-8.2 6575509931) ALBUMIN (test code = 1866979924) 4.6 g/dL 3.5-5 ALK PHOS (test code = 0484385045) 54 U/L 34-122 ALTv (test code = 1742-6) 20 U/L 5-35 AST(SGOT) (test code = 33 U/L 13-40 9243431688) eGFR (test code = 5908983561) mL/min/1.73m2 LOY (test code = LOY) Association of Glomerular Filtration Rate (GFR) and Staging of Kidney Disease* + +--------- + ----+| GFR (mL/min/1.73 m2) ?| With Kidney Damage ?| ?Without Kidney Damage+ +--- + +| ?>90 ?| ?Stage one ?| ? Normal ?+ +-------- + -----+| ?60-89 ?| ?Stage two ?| ? Decreased GFR ? + +--------- + ----+| ?30-59 ?| ?Stage three ?| ? Stage three ? + +--------- + ----+| ?15-29 ?| ?Stage four ? | ? Stage four ?+ +-------- + -----+| ?<15 (or dialysis) ? ?| ?Stage five ? | ? Stage five ?+ +-------- + -----+ *Each stage assumes the associated GFR level has been in effect for at least three months. ?Stages 1 to 5, with or without kidney disease, indicate chronic kidney disease. Notes: Determination of stages one and two (with eGFR >59mL/min/1.73 m2) requires estimation of kidney damage for at least three months as defined by structural or functional abnormalities of the kidney, manifested by either:Pathological abnormalities or Markers of kidney damage (including abnormalities in the composition of the blood or urine or abnormalities in imaging tests). [facility] 17[facility]17:49 Test Item Value Reference Range Interpretation Comments LIPASE (test code = 6873392108) 31 U/L 0-220 Lab Interpretation (test code = Normal 35281-2) [facility] WITH [id number] 17:07:50 Test Item Value Reference Range Interpretation Comments WBC (test code = See_Comment [Automated 0495-2) message] The sy stem which generated this result transmitted reference range : 4.30 - 11.10 10*3/?L. The reference range was not used to interpret this result as normal/abnormal . RBC (test code = See_Comment [Automated 981-8) message] The sy stem which generated this result transmitted reference range : 3.93 - 5.25 10*6/?L. The reference range was not used to interpret this result as normal/abnormal . HGB (test code = 13.0 g/dL 11.6-15 718-7) HCT (test code = 37.9 % 35.7-45.2 4544-3) MCV (test code = 89.6 fL 80.6-95.5 787-2) MCH (test code = 30.7 pg 25.9-32.8 785-6) MCHC (test code = 34.3 g/dL 31.6-35.1 786-4) RDW-SD (test code = 45.1 fL 39-49.9 77366-9) RDW-CV (test code = 13.8 % 12-15.5 788-0) PLT (test code = See_Comment [Automated 747-3) message] The sy stem which generated this result transmitted reference range : 166 - 358 10*3/ ?L. The reference r luis was not used to interpret this result as normal/abnormal . MPV (test code = 9.4 fL 9.5-12.9 L 99555-3) NRBC/100 WBC (test See_Comment [Automat ed code = 8835210438) message] The system which generated this result transmitted reference range : 0.0 - 10.0 /100 WBCs. The refer ence range was not u sed to interpret th is result as normal/abnormal . NRBC x10^3 (test code See_Comment [Auto mated = 8116504434) message] The s ystem which generated this result transmitted reference range : 10*3/?L. The reference range was not used to interpret this result as normal/abnormal . GRAN MAT (NEUT) % 52.9 % (test code = 770-8) IMM GRAN % (test code 0.30 % = 3704005761) LYMPH % (test code = 34.5 % 736-9) MONO % (test code = 9.5 % 5905-5) EOS % (test code = 2.3 % 713-8) BASO % (test code = 0.5 % 706-2) GRAN MAT x10^3(ANC) 3.52 10*3/uL 1.88-7.09 (test code = 2689306554) IMM GRAN x10^3 (test 0-0.06 code = 2034782787) LYMPH x10^3 (test code 2.29 10*3/uL 1.32-3.29 = 731-0) MONO x10^3 (test code 0.63 10*3/uL 0.33-0.92 = 742-7) EOS x10^3 (test code = 0.15 10*3/uL 0.03-0.39 711-2) BASO x10^3 (test code 0.03 10*3/uL 0.01-0.07 = 704-7) Lab Interpretation Abnormal (test code = 24013-7) [facility] [id number] 15:51:00 Test Item Value Reference Range Interpretation Comments POCT PREG (test code = 1605) negative On board controls acceptable with present C Line (test code = 3574) POCT PREG LOT # (test code = 3575) [id number] POCT PREG TEST DATE (test 07-04-2023 code = 3576) Lab Interpretation (test code = Normal 25927-5) [facility]"
[2022-10-30 14:14] LABS: Urine Blood Trace-intact (Negative); Urine Glucose Negative (Negative); Urine Protein Negative (Negative); Urine Specific Gravity >=1.030 (1.005-1.030); Urine pH 5.5 (5.0-7.0)
--- NOTE | 2022-10-30 14:41 | RAD REPORT ---
EXAM DESCRIPTION: RAD - Forearm Right - 10/30/2022 2:31 pm CLINICAL HISTORY: Swelling COMPARISON: None. FINDINGS: Two views of the right forearm. No fracture is identified. There is no dislocation or periosteal reaction noted. No foreign body. Focal soft tissue swelling along the volar aspect of the proximal forearm. No soft t issue gas. IMPRESSION: Soft tissue swelling as above without acute osseous abnormality.
[2022-10-30 14:46] LABS: Barbiturates NEGATIVE (NEGATIVE); Benzodiazepines NEGATIVE (NEGATIVE); METHAMPHETAM POSITIVE (NEGATIVE); Methadone NEGATIVE (NEGATIVE); Opiates NEGATIVE (NEGATIVE); Phencyclidine NEGATIVE (NEGATIVE); THC Cannibis POSITIVE (NEGATIVE)
[2022-10-30 14:48] LABS: Absolute Lymphocytes (CBC) 2.1 K/uL (0.7-4.9); Hematocrit 39.2 % (36.0-45.0); Lymphocytes % 18.3 % (15.3-44.8); MCV 90.3 fL (80-100); MPV 7.3 fL (7.6-11.3); RBC Red Blood Cell Count 4.34 M/uL (3.86-4.86)
[2022-10-30 14:55] LABS: Protime INR 1.01
[2022-10-30] MEDS ORDERED: NA CHLORIDE 0.9% 1,000 ML ONE (15:13)
[2022-10-30] MEDS ORDERED: CLINDAMYCIN 600MG/D5W 50 ML IV ONE (15:13)
[2022-10-30] MEDS ORDERED: FENTANYL CITR 100 MCG/2 ML ONE (15:22)
[2022-10-30] MEDS ORDERED: LIDOCAINE 1% W/EPI 1:100,000 10 ML VIAL ONE ×2 (16:22→16:23)
[2022-10-30] MEDS ORDERED: BUPIVACAINE 0.5% PF 10 ML VIAL ONE (16:22)
[2022-10-30 16:46] LABS: Magnesium 2.1
--- NOTE | 2022-10-30 17:18 | RAD REPORT ---
EXAM DESCRIPTION: US - Extremity Venous Uni Ltd - 10/30/2022 5:10 pm CLINICAL HISTORY: Swelling COMPARISON: None. TECHNIQUE: Real-time sonographic evaluation of the right upper extremity deep venous systems was per formed. FINDINGS: Normal compressibility, flow augmentation, phasic flow and spontaneous flow is identified in the right upper extremity deep venous system. No intraluminal filling defects seen. IMPRESSION: No evidence of right upper extremity DVT.
[2022-10-30] MEDS ORDERED: ACETAMINOPHEN 500 MG TAB PO PRN (17:22)
[2022-10-30] MEDS ORDERED: ONDANSETRON 4 MG/2 ML VIAL IV PRN (17:22)
--- NOTE | 2022-10-30 17:23 | RAD REPORT ---
EXAM DESCRIPTION: US - Extremity Nonvascular Limited - 10/30/2022 5:10 pm CLINICAL HISTORY: Swelling. Concern for abscess COMPARISON: None. TECHNIQUE: Real-time sonographic evaluation of the left lower upper extremity forearm soft tissues w as performed. FINDINGS: Pronounced skin thickening and subcutaneous soft tissue edema. Diffuse heterogeneous hyper echogenicity throughout the subcutaneous fat concerning for inflammatory changes. A heterogeneous irr egular collection with internal vascularized hypoechoic tissue is present just superficial to the rad ial artery, measuring 0.9 x 0.6 x 0.5 centimeter in greatest dimension. The underlying arteries paten t. IMPRESSION: Heterogeneous irregular collection with internal vascularized hypoechoic tissue present just superficial to the radial artery, measuring 9 millimeter in greatest dimension. This is suggesti ve of an advanced phlegmon or early abscess.
--- NOTE | 2022-10-30 17:24 | ER ---
Nurse's Notes [facility] Name: Tika Vazquez Age: 37 yrs Sex: Female : 1985 Arrival Date: 10/30/2022 Time: 13:35 Bed 19 Private MD: Diagnosis: Cutaneous abscess of right upper limb;Cellulitis of right upper limb Presentation: 10/30 13:38 Chief complaint: Right forearm abscess after shooting up meth a week ago. Coronavirus hb screen: At this time, the client does not indicate any symptoms associated with coronavirus-19. Ebola Screen: No symptoms or risks identified at this time. Initial Sepsis Screen: Does the patient meet any 2 criteria? No. Patient's initial sepsis screen is negative. Does the patient have a suspected source of infection? No. Patient's initial sepsis screen is negative. Risk Assessment: Do you want to hurt yourself or someone else? Patient reports no desire to harm self or others. Onset of symptoms was October 23, 2022. 13:38 Method Of Arrival: Ambulatory hb 13:40 Acuity: MONIQUE 3 hb Historical: - Allergies: 13:40 No Known Allergies; hb - PMHx: 13:40 Anxiety; GERD; hb - PSHx: 13:40 Ligation of fallopian tube; hb - Immunization history:: Adult Immunizations unknown. Screenin:49 [facility] ED Fall Risk Assessment (Adult) History of falling in the last 3 months, ko1 including since admission No falls in past 3 months (0 pts) Confusion or Disorientation No (0 pts) Intoxicated or Sedated No (0 pts) Impaired Gait No (0 pts) Mobility Assist Device Used No (0 pt) Altered Elimination No (0 pt) Score/Fall Risk Level 0 - 2 = Low Risk Oriented to surroundings, Maintained a safe environment, Educated pt \T\ family on fall prevention, incl call for assistance when getting out of bed, Assessed \T\ reinforced patient's understanding of fall precautions, Provided non-skid footwear, Hourly rounding (assess needs \T\ fall precautionary measures) done, Used ambulatory aids as needed (educated on \T\ assisted with), Used gait belt as appropriate. Abuse screen: Denies threats or abuse. Denies injuries from another. Nutritional screening: No deficits noted. Tuberculosis screening: No symptoms or risk factors identified. Assessment: 13:52 General: Appears in no apparent distress. uncomfortable, Behavior is calm, cooperative, ko1 appropriate for age. Pain: Denies pain. Neuro: No deficits noted. Cardiovascular: No deficits noted. Respiratory: No deficits noted. GI: No deficits noted. : No deficits noted. EENT: No deficits noted. Derm:. Musculoskeletal: No deficits noted. Vital Signs: 13:38 Pulse 134; Resp 18; Temp 98.3; Pulse Ox 100% on R/A; Weight 58.97 kg; Height 5 ft. 8 hb in. (172.72 cm); Pain 8/10; 13:49 BP 114 / 78; Pulse 120; Resp 18; Pulse Ox 99% ; ko1 15:41 BP 103 / 70; Pulse 104; Resp 16; Pulse Ox 99% ; ko1 16:37 BP 110 / 74; Pulse 99; Resp 18; Pulse Ox 99% ; ko1 13:38 Body Mass Index 19.77 (58.97 kg, 172.72 cm) hb ED Course: 13:35 Patient arrived in ED. mr 13:39 Raffi Ellis PA is PHCP. cp 13:39 Eugene Salazar MD is Attending Physician. cp 13:40 Arm band placed on. hb 13:41 Triage completed. hb 13:48 Oumou Hi, RN is Primary Nurse. ko1 13:49 Patient has correct armband on for positive identification. Bed in low position. Call ko1 light in reach. Side rails up X 1. Client placed on continuous cardiac and pulse oximetry monitoring. NIBP monitoring applied. color television console monitor on. 14:14 UDS Sent. ko1 14:15 Inserted saline lock: 22 gauge in left wrist, using aseptic technique. Blood collected. ko1 14:33 XRAY Forearm RIGHT In Process Unspecified. EDMS 14:39 Lactate w/ 2H reflex if indic. Sent. ko1 14:39 Basic Metabolic Panel Sent. ko1 14:39 CBC with Diff Sent. ko1 14:39 Magnesium Sent. ko1 14:39 PT-INR Sent. ko1 17:11 US Extremity Venous Unilateral Ltd In Process Unspecified. EDMS 17:11 US Extrmty Nonvasular Limited In Process Unspecified. EDMS 17:22 Krystle Tate MD is Hospitalizing Provider. cp 18:43 SARS RAPID Sent. ko1 20:34 No provider procedures requiring assistance completed. Patient admitted, IV remains in eh3 place. Administered Medications: 15:22 Drug: Clindamycin 600 mg Route: IVPB; Infused Over: 30 mins; Site: left wrist; ko1 15:22 Drug: NS 0.9% 1000 ml Route: IV; Rate: 1 bolus; Site: left wrist; ko1 15:22 Drug: fentaNYL (PF) 25 mcg Route: IVP; Site: left wrist; ko1 17:19 Drug: NS 0.9% 1000 ml Route: IV; Rate: 100 ml/hr; Site: left wrist; ko1 17:26 Drug: Nicotine Patch 21 mg/24 hr 1 patches Route: Transdermal; Site: affected area; ko1 17:26 Drug: morphine 4 mg Route: IVP; Infused Over: 4 mins; Site: left wrist; ko1 17:27 CANCELLED (Physician Discretion; orderr): Lidocaine-Epinephrine -1%: (1:100,000) 10 ml ko1 20 ml Infiltration once; to bedside 17:27 CANCELLED (order): Marcaine (bupivacaine) (0.5 %) 10 ml 10 ml Infiltration once ko1 17:31 Drug: vancoMYCIN 1 grams Route: IVPB; Infused Over: 2 hrs; Site: left wrist; ko1 Medication: 20:34 VIS not applicable for this client. 3 Outcome: 17:24 Decision to Hospitalize by Provider. cp 20:35 Admitted to Med/surg accompanied by tech, via wheelchair, room 210, with chart, Report 3 called to Iv[place] 20:35 Condition: stable 20:35 Instructed on the need for admit. 20:35 Patient left the ED. [facility] Signatures: Dispatcher [employer] EDMS Viktoria Pelayo Corey, PA PA cp Tika Farah RN RN hb Hall, Erin, RN RN [facility] Oumou Hi, ANGELA RN ko1 Corrections: (The following items were deleted from the chart) 16:08 15:26 POTASSIUM+C.LAB.BRZ drawn and sent. ko1 EMMANH
--- NOTE | 2022-10-30 17:24 | EDPHYS ---
Physician Documentation [facility] Name: Tika Vazquez Age: 37 yrs Sex: Female : 1985 Arrival Date: 10/30/2022 Time: 13:35 Bed 19 Private MD: ED Physician Eugene Salazar HPI: 10/30 14:00 This 37 yrs old Female presents to ER via Ambulatory with complaints of Abscess. cp 14:00 the patient presents with a swollen area of the volar side right forearm. Description: cp erythematous, swollen. 14:00 Onset: The symptoms/episode began/occurred 1 week(s) ago. cp 14:00 Associated signs and symptoms: Pertinent positives: erythema, swelling, Pertinent cp negatives: discharge, drainage, fever, vomiting. Patient admits to history of IV drug use and prior to noticing redness and swelling had injected methamphetamine into right arm. Historical: - Allergies: 13:40 No Known Allergies; hb - PMHx: 13:40 Anxiety; GERD; hb - PSHx: 13:40 Ligation of fallopian tube; hb - Immunization history:: Adult Immunizations unknown. ROS: 14:05 Constitutional: Negative for body aches, chills, fever, poor PO intake. cp 14:05 Eyes: Negative for injury, pain, redness, and discharge. cp 14:05 Cardiovascular: Negative for chest pain, palpitations. 14:05 Respiratory: Negative for cough, shortness of breath, wheezing. 14:05 Abdomen/GI: Negative for abdominal pain, nausea, vomiting, and diarrhea. 14:05 Skin: Positive for erythema, swelling, of the right forearm volar side. 14:05 Neuro: Negative for altered mental status, headache. 14:05 All other systems are negative. Exam: 14:10 Constitutional: The patient appears in no acute distress, alert, awake, cp non-diaphoretic, non-toxic, well developed, well nourished, uncomfortable. 14:10 Head/Face: Normocephalic, atraumatic. cp 14:10 Eyes: Periorbital structures: appear normal, Conjunctiva: normal, no exudate, no injection, Sclera: no appreciated abnormality, Lids and lashes: appear normal, bilaterally. 14:10 ENT: External ear(s): are unremarkable, Nose: is normal, Mouth: Lips: moist, Oral mucosa: pink and intact, moist, Posterior pharynx: is normal, airway is patent, no erythema, no exudate. 14:10 Chest/axilla: Inspection: normal. 14:10 Cardiovascular: Rate: tachycardic, Rhythm: regular, Edema: is not appreciated, JVD: is not appreciated. 14:10 Respiratory: the patient does not display signs of respiratory distress, Respirations: normal, no use of accessory muscles, no retractions, labored breathing, is not present, Breath sounds: are clear throughout, no decreased breath sounds, no stridor, no wheezing. 14:10 Abdomen/GI: Exam negative for discomfort, distension, guarding, Inspection: abdomen appears normal. 14:10 Back: pain, is absent, ROM is normal. 14:10 Musculoskeletal/extremity: Extremities: noted in the volar side right forearm: golf ball size area of swelling and erythema, proximal and distal erythema, tenderness to palpation. no active draining and/or discharge. 14:10 Neuro: Orientation: to person, place \T\ time. Mentation: is normal, Motor: moves all fours, strength is normal. 14:47 ECG was reviewed by the Attending Physician. cp Vital Signs: 13:38 Pulse 134; Resp 18; Temp 98.3; Pulse Ox 100% on R/A; Weight 58.97 kg; Height 5 ft. 8 hb in. (172.72 cm); Pain 8/10; 13:49 BP 114 / 78; Pulse 120; Resp 18; Pulse Ox 99% ; ko1 15:41 BP 103 / 70; Pulse 104; Resp 16; Pulse Ox 99% ; ko1 16:37 BP 110 / 74; Pulse 99; Resp 18; Pulse Ox 99% ; ko1 13:38 Body Mass Index 19.77 (58.97 kg, 172.72 cm) hb MDM: 13:42 Patient medically screened. cp 16:00 Differential diagnosis: abscess, cellulitis, sepsis, retained foreign body. cp 17:15 ED course: consult with general surgery, DR Zayas, who will perform surgical I\T\D and cp requests pump house engineer to be notified to add to OR cases tomorrow. 17:25 ED course: consult with DR Tate, hospitalist, to discuss labs and radiology studies. cp Will admit for continued treatment. 17:30 Data reviewed: vital signs, nurses notes, lab test result(s), EKG, radiologic studies, cp plain films, ultrasound. 17:30 Consideration of Admission/Observation Patient was admitted/placed on observation. I cp considered the following discharge prescriptions or medication management in the emergency department Medications were administered in the Emergency Department. See MAR. Test considered but Not performed: CT: upper extremity. Care significantly affected by the following Social Determinants of Health: Misuse of alcohol and/or drugs. Counseling: I had a detailed discussion with the patient and/or guardian regarding: the historical points, exam findings, and any diagnostic results supporting the discharge/admit diagnosis, lab results, radiology results, the need for further work-up and treatment in the hospital. Response to treatment: the patient's symptoms have mildly improved after treatment. 10/30 13:58 Order name: Basic Metabolic Panel; Complete Time: 17:21 10/30 13:58 Order name: CBC with Diff; Complete Time: 14:55 10/30 14:55 Interpretation: Normal except: WBC 11.60; MPV 7.3; NEUT A 8.3. 10/30 13:58 Order name: Magnesium; Complete Time: 17:21 10/30 13:58 Order name: PT-INR; Complete Time: 14:55 10/30 15:11 Interpretation: Reviewed. 10/30 13:58 Order name: Lactate w/ 2H reflex if indic.; Complete Time: 15:59 10/30 15:59 Interpretation: Reviewed. 10/30 13:58 Order name: Blood Culture Adult (2) 10/30 13:58 Order name: UDS 10/30 14:56 Interpretation: Normal except: METHAMPHETAMINE POSITIVE; THC POSITIVE. 10/30 14:14 Order name: Urine Dipstick-Ancillary; Complete Time: 14:55 [facility] 10/30 14:56 Interpretation: Normal except: UKET 1+; UBLD Trace-intact; UESTR Trace. 10/30 14:31 Order name: Urine --Ancillary (enter results); Complete Time: 19:30 10/30 19:30 Interpretation: Reviewed. 10/30 17:27 Order name: Basic Metabolic Panel [facility] 10/30 17:27 Order name: Basic Metabolic Panel [facility] 10/30 17:27 Order name: CBC with Automated Diff [facility] 10/30 17:27 Order name: CBC with Automated Diff EDIN 10/30 13:58 Order name: XRAY Forearm RIGHT; Complete Time: 14:55 10/30 14:55 Order name: US Extremity Venous Unilateral Ltd; Complete Time: 17:21 cp 10/30 16:31 Order name: US Extrmty Nonvasular Limited; Complete Time: 19:30 cp 10/30 19:31 Interpretation: Report reviewed. 10/30 17:27 Order name: Procalcitonin EDIN 10/30 17:27 Order name: Procalcitonin; Complete Time: 19:30 EDMS 10/30 17:27 Order name: Protime (+INR) EDMS 10/30 17:27 Order name: Protime (+INR) EDIN 10/30 17:27 Order name: PTT, Activated Partial Thromb EDMS 10/30 17:27 Order name: PTT, Activated Partial Thromb EDIN 10/30 17:27 Order name: Blood Culture EDIN 10/30 18:33 Order name: SARS RAPID aa5 10/30 19:15 Order name: SARS-COV-2 Antigen Rapid; Complete Time: 19:30 EDIN 10/30 13:58 Order name: EKG; Complete Time: 13:59 10/30 13:58 Order name: Cardiac monitoring; Complete Time: 14:15 10/30 13:58 Order name: EKG - Nurse/Tech; Complete Time: 14:39 10/30 13:58 Order name: IV Saline Lock; Complete Time: 14:39 10/30 13:58 Order name: Labs collected and sent; Complete Time: 14:39 10/30 13:58 Order name: O2 Per Protocol; Complete Time: 14:15 10/30 13:58 Order name: O2 Sat Monitoring; Complete Time: 14:15 10/30 13:58 Order name: Urine Test (obtain specimen); Complete Time: 14:15 10/30 13:58 Order name: Urine Dipstick-Ancillary (obtain specimen); Complete Time: 14:14 10/30 14:57 Order name: I\T\D Setup; Complete Time: 15:22 10/30 17:27 Order name: CONS Physician Consult EDIN 10/30 17:27 Order name: NPO EDIN 10/30 17:27 Order name: Regular EDIN EC:47 Rate is 114 beats/min. Rhythm is regular. AL interval is normal. QRS interval is cp normal. QT interval is normal. T waves are Inverted in lead aVR. Interpreted by me. Reviewed by me. Administered Medications: 15:22 Drug: Clindamycin 600 mg Route: IVPB; Infused Over: 30 mins; Site: left wrist; ko1 15:22 Drug: NS 0.9% 1000 ml Route: IV; Rate: 1 bolus; Site: left wrist; ko1 15:22 Drug: fentaNYL (PF) 25 mcg Route: IVP; Site: left wrist; ko1 17:19 Drug: NS 0.9% 1000 ml Route: IV; Rate: 100 ml/hr; Site: left wrist; ko1 17:26 Drug: Nicotine Patch 21 mg/24 hr 1 patches Route: Transdermal; Site: affected area; ko1 17:26 Drug: morphine 4 mg Route: IVP; Infused Over: 4 mins; Site: left wrist; ko1 17:27 CANCELLED (Physician Discretion; orderr): Lidocaine-Epinephrine -1%: (1:100,000) 10 ml ko1 20 ml Infiltration once; to bedside 17:27 CANCELLED (order): Marcaine (bupivacaine) (0.5 %) 10 ml 10 ml Infiltration once ko1 17:31 Drug: vancoMYCIN 1 grams Route: IVPB; Infused Over: 2 hrs; Site: left wrist; ko1 Disposition Summary: 10/30/22 17:24 Hospitalization Ordered Hospitalization Status: Inpatient Admission cp Provider: Krystle Tate cp Location: Telemetry/MedSurg (Inpatient) cp Condition: Stable cp Problem: new cp Symptoms: have improved cp Bed/Room Type: Standard cp Room Assignment: 210(10/30/22 19:28) Diagnosis - Cutaneous abscess of right upper limb cp - Cellulitis of right upper limb cp Forms: - Medication Reconciliation Form cp - SBAR form cp Addendum: 11/01/2022 07:18 Co-signature as Attending Physician, Eugene Salazar MD I reviewed the patient's care r n provided by the Advanced Practice Provider and agree with the diagnosis and treatment plan. Signatures: Dispatcher [facility] Vanessa Alcala RN RN mw Nieto, Roman, MD MD rn Page, Corey, PA PA cp Baxter, Heather, RN RN Oumou Hi RN RN ko1 Corrections: (The following items were deleted from the chart) 10/30 16:08 15:12 POTASSIUM+C.LAB.BRZ ordered. EDMS EDMS 17: 15:58 Lidocaine-Epinephrine -1%: (1:100,000) 10 ml 20 ml Infiltration once; to bedside ko1 ordered. cp 17: 15:58 Marcaine (bupivacaine) (0.5 %) 10 ml 10 ml Infiltration once ordered. cp ko1 17:27 17:18 Marcaine (bupivacaine) (0.5 %) 10 ml 10 ml Infiltration once ordered. ko1 ko1 17:27 17:18 Lidocaine-Epinephrine -1%: (1:100,000) 10 ml 20 ml Infiltration once; to bedside ko1 ordered. ko1 19:28 17:24 cp mw
[2022-10-30] MEDS ORDERED: MORPHINE 4 MG/ML SYR ONE (17:27)
[2022-10-30] MEDS ORDERED: NICOTINE 21 MG/PAT TD ONE (17:27)
[2022-10-30] MEDS ORDERED: VANCOMYCIN 1 GM/VIAL ONE (17:33)
[2022-10-30] MEDS ORDERED: NA CHLORIDE 0.9% 250 ML ONE (17:34)
[2022-10-30] MEDS: NA CHLORIDE 0.9% 1,000 ML IV SCH (17:49)
[2022-10-30 18:06] VITALS: BMI 20.9
[2022-10-30 19:14] LABS: SARS-CoV-2 Antigen Rapid Res Negative (Negative)
[2022-10-30] MEDS: INSULIN -REGULAR HUMAN 50 UNIT/0.5 ML ML SQ SCH (21:00)
[2022-10-30] MEDS ORDERED: VANCOMYCIN 1 GM in NA CHLORIDE 0.9% 250 ML IVPB SCH (21:00)
[2022-10-30] MEDS: HYDROMORPHONE HCL 1 MG/ML INJ IV PRN (22:15)
[2022-10-31 03:52] LABS: Absolute Lymphocytes (CBC) 1.8 K/uL (0.7-4.9); Hematocrit 36.7 % (36.0-45.0); MPV 7.3 fL (7.6-11.3); RBC Red Blood Cell Count 4.08 M/uL (3.86-4.86)
[2022-10-31 03:53] LABS: Protime INR 0.92
[2022-10-31 04:04] LABS: Potassium 3.9 mmol/L (3.5-5.1)
[2022-10-31] MEDS: HYDROMORPHONE HCL 1 MG/ML INJ IV PRN ×3 (04:07→14:47)
[2022-10-31] MEDS: VANCOMYCIN 1 GM in NA CHLORIDE 0.9% 250 ML IVPB SCH ×2 (04:27→16:39)
--- NOTE | 2022-10-31 06:34 | P.HP ---
Certification for Inpatient Patient admitted to: Observation With expected LOS: <2 Midnights Patient will require the following post-hospital care: None Practitioner: I am a practitioner with admitting privileges, knowledge of patient current condition, hospital course, and medical plan of care. Services: Services provided to patient in accordance with Admission requirements found in Title 42 Section 412.3 of the Code of Federal Regulations Patient History Date of Service: 10/30/22 Reason for admission: History of IVDA/ cellulitis/ abscess of the right upper extremity History of Present Illness: patient is a 37-year-old female who came to the hospital with swelling of the right upper extremity. Patient has history of IV drug abuse. Most of the information was obtained from patient's significant other who is at bedside with her. He states that she was noticing swelling in the right upper extremity. It was gradually worsening so he brought her into the hospital to get evaluated. She appears to have multiple abscesses in the right upper extremity. Patient will need I&D of the right upper extremity. Infectious Disease was consulted. Will need to consult General surgery as well. Patient will be admitted to the hospital and kept NPO after midnight. Allergies No Known Allergies Allergy (Verified 11/21/19 10:20) Home Medications: Alprazolam [Xanax] 0.5 mg PO DAILY PRN 11/21/19 Bupropion HCl [Wellbutrin] 75 mg PO BID 11/21/19 Citalopram [Celexa*] 30 mg PO DAILY 11/21/19 Dextroamphetamine/Amphetamine [Adderall 10 mg Tablet] 10 mg PO DAILY 11/21/19 Omeprazole [Prilosec] 40 mg PO DAILY 11/21/19 Pravastatin Sodium 10 mg PO DAILY 11/21/19 Trazodone [Desyrel] 25 mg PO DAILY 11/21/19 - Past Medical/Surgical History Has patient received pneumonia vaccine in the past: No -: History of substance abuse -: depression -: ADD -: GERD Past Surgical History: Patient denies surgical history - Family History Sister Family History: Reviewed- Non-Contributory - Social History Smoking Status: Current every day smoker Alcohol use: No CD- Drugs: Yes Place of Residence: Homeless Review of Systems 10-point ROS is otherwise unremarkable Physical Examination - Vital Signs Temperature: 97.7 F Blood Pressure: 110/67 Pulse: 90 Respirations: 18 Pulse Ox (%): 98 - Physical Exam General: Alert, In no apparent distress, Oriented x3 HEENT: Atraumatic, PERRLA, Mucous membr. moist/pink, EOMI, Sclerae nonicteric Neck: Supple, 2+ carotid pulse no bruit, No LAD, Without JVD or thyroid abnormality Respiratory: Clear to auscultation bilaterally, Normal air movement Cardiovascular: Regular rate/rhythm, Normal S1 S2, No murmurs Gastrointestinal: Normal bowel sounds, Soft and benign, Non-distended, No tenderness Musculoskeletal: No clubbing, No swelling, No tenderness Integumentary: Tenderness/swelling, Erythema, Warmth Neurological: Normal tone, Sensation intact, Cranial nerves 3-12 intact Lymphatics: No axilla or inguinal lymphadenopathy - Studies Laboratory Data (last 24 hrs) 10/30/22 15:30: Potassium Cancelled 10/30/22 15:30: Sodium 132 L, Potassium 4.0, BUN 18, Creatinine 0.73, Glucose 116 H, Magnesium 2.1 10/30/22 14:35: PT 11.1, INR 1.01 10/30/22 14:35: WBC 11.60 H, Hgb 13.3, Hct 39.2, Plt Count 266 Microbiology Data (last 24 hrs): 10/30/22 15:30 Blood - Blood Anaerobic Blood Culture - Final Assessment & Plan - Problems (Diagnosis) (1) Abscess Current Visit: Yes Status: Acute (2) MRSA (methicillin resistant staph aureus) culture positive Current Visit: Yes Status: Acute (3) Substance abuse Current Visit: Yes Status: Acute - Plan 1. Continue with IV antibiotic 2. Continue with local wound care 3. Surgical consultation 4. Gentle IV hydration 5. Monitor CBC 6. Strict blood sugar monitoring 7. Pain control 8. Will need to claims counsel when more awake 9. GI and DVT prophylaxis Discharge Plan: Home Plan to discharge in: Greater than 2 days - Advance Directives Does patient have a Living Will: No Does patient have a Durable POA for Healthcare: No - Code Status/Comfort Care Code Status Assessed: Yes Code Status: Full Code Critical Care: No Time Spent Managing PTS Care (In Minutes): 45
[2022-10-31] MEDS: INSULIN -REGULAR HUMAN 50 UNIT/0.5 ML ML SQ SCH ×4 (07:30→20:24)
--- NOTE | 2022-10-31 08:45 | P.CNS ---
Date of Consult: 10/31/22 Chief Complaint: History of IVDA/ cellulitis/ abscess of the right upper extremity History of Present Illness: Patient is a 37-year-old female who came to the hospital with swelling of the right upper extremity. Patient has history of IV drug abuse. Most of the information was obtained from patient's significant other who is at bedside with her. He states that she was noticing swelling in the right upper extremity. It was gradually worsening so he brought her into the hospital to get evaluated. She appears to have multiple abscesses in the right upper extremity. Patient will need I&D of the right upper extremity. ID has been consulted for further IV antibiotics recommendations and management of cellulitis of right upper extremity Allergies No Known Allergies Allergy (Verified 11/21/19 10:20) Home Medications: Alprazolam [Xanax] 0.5 mg PO DAILY PRN 11/21/19 Bupropion HCl [Wellbutrin] 75 mg PO BID 11/21/19 Citalopram [Celexa*] 30 mg PO DAILY 11/21/19 Dextroamphetamine/Amphetamine [Adderall 10 mg Tablet] 10 mg PO DAILY 11/21/19 Omeprazole [Prilosec] 40 mg PO DAILY 11/21/19 Pravastatin Sodium 10 mg PO DAILY 11/21/19 Trazodone [Desyrel] 25 mg PO DAILY 11/21/19 - Past Medical/Surgical History -: History of substance abuse -: depression -: ADD -: GERD - Family History Sister Family History: Reviewed- Non-Contributory - Social History Smoking Status: Unknown if ever smoked Alcohol use: No CD- Drugs: Yes Place of Residence: Homeless Review of Systems 10-point ROS is otherwise unremarkable Integumentary: As per HPI Physical Examination Temp Pulse Resp BP Pulse Ox 97.3 F 90 16 107/59 L 100 10/31/22 08:00 10/31/22 08:00 10/31/22 08:00 10/31/22 08:00 10/31/22 08:00 General: Alert, In no apparent distress, Oriented x3 Neck: Supple Respiratory: Clear to auscultation bilaterally Cardiovascular: Normal S1 S2, Edema (right forearm cellulitis) Gastrointestinal: Normal bowel sounds Musculoskeletal: Swelling (right forearm cellulitis), Erythema Integumentary: Tenderness/swelling (right forearm cellulitis), Erythema Neurological: Normal gait, Normal speech, Normal tone, Sensation intact, Normal affect Laboratory Data (last 24 hrs) 10/30/22 15:30: Potassium Cancelled 10/30/22 15:30: Sodium 132 L, Potassium 4.0, BUN 18, Creatinine 0.73, Glucose 116 H, Magnesium 2.1 10/30/22 14:35: PT 11.1, INR 1.01 10/30/22 14:35: WBC 11.60 H, Hgb 13.3, Hct 39.2, Plt Count 266 active medications Acetaminophen (Acetaminophen 500 Mg Tab) 500 mg PO Q6H PRN PRN Reason: pain/fever Alprazolam (Alprazolam 0.5 Mg Tablet) 0.5 mg PO DAILY PRN PRN Reason: ANXIETY Citalopram Hydrobromide (Citalopram 10 Mg Tablet) 30 mg PO DAILY [facility] Last Admin: 10/31/22 09:00 Dose: 30 mg Hydromorphone HCl (Hydromorphone Hcl 1 Mg/Ml Inj) 1 mg IV Q4H PRN PRN Reason: Pain scale 8-10 (Severe) Last Admin: 10/31/22 09:06 Dose: 1 mg Sodium Chloride (Ns 1000 Ml Ivbag) 1,000 mls @ 100 mls/hr IV .Q10H [facility] Last Admin: 10/30/22 17:49 Dose: 1,000 mls Vancomycin HCl 1 gm/ Sodium (Chloride) 250 mls @ 250 mls/hr IVPB Q12H [facility]; Protocol Last Admin: 10/31/22 04:27 Dose: 250 mls Insulin Human Regular (Insulin -Regular Human 50 Unit/0.5 Ml Ml) 0 unit SQ ACHS [facility]; Protocol Last Admin: 10/31/22 07:30 Dose: Not Given Ondansetron HCl (Ondansetron 4 Mg/2 Ml Vial) 4 mg IV Q4H PRN PRN Reason: NAUSEA / VOMITING Sodium Chloride (Flush Normal Saline 10 Ml) 10 ml IV BID [facility] Last Admin: 10/31/22 09:01 Dose: 10 ml Trazodone HCl (Trazodone 50 Mg Tablet) 25 mg PO BEDTIME [facility] Microbiology 10/31/22 03:36 Blood - Blood Anaerobic Blood Culture - Final 10/31/22 03:43 Blood - Blood Anaerobic Blood Culture - Final 10/30/22 15:30 Blood - Blood Anaerobic Blood Culture - Final Imagings Data: RAD - Forearm Right - 10/30/2022 FINDINGS: Two views of the right forearm. No fracture is identified. There is no dislocation or periosteal reaction noted. No foreign body. Focal soft tissue swelling along the volar aspect of the proximal forearm. No soft tissue gas. IMPRESSION: Soft tissue swelling as above without acute osseous abnormality US - Extremity Venous Uni Ltd - 10/30/2022 FINDINGS: Normal compressibility, flow augmentation, phasic flow and spontaneous flow is identified in the right upper extremity deep venous system. No intraluminal filling defects seen. IMPRESSION: No evidence of right upper extremity DVT US - Extremity Nonvascular Limited - 10/30/2022 FINDINGS: Pronounced skin thickening and subcutaneous soft tissue edema. Diffuse heterogeneous hyperechogenicity throughout the subcutaneous fat concerning for inflammatory changes. A heterogeneous irregular collection with internal vascularized hypoechoic tissue is present just superficial to the radial artery, measuring 0.9 x 0.6 x 0.5 centimeter in greatest dimension. The underlying arteries patent. IMPRESSION: Heterogeneous irregular collection with internal vascularized hypoechoic tissue present just superficial to the radial artery, measuring 9 millimeter in greatest dimension. This is suggestive of an advanced phlegmon or early abscess - Problems (1) Cellulitis and abscess of upper extremity Plan: I&D by General Surgery today Cultures: - 10/31 BC: Culture pending - 10/30 BC: Culture pending Antibiotics: - Current on IV Vancomycin (10/30- ) Recommendations: - Continue IV Vancomycin - ID will recommend the antibiotics drug of choice when cultures are available Conclusions/Impression: - Right upper extremity cellulitis with abscess - MRSA (methicillin resistant staph aureus) culture positive - Substance abuse - Depression - ADD - GERD ID will monitor the patient closely for signs of infection with fever and WBC t shannon Case has been discussed with Dr. Whiting, N Thank you Dr. Power for consultation
[2022-10-31] MEDS: CITALOPRAM 10 MG TABLET PO SCH (09:00)
[2022-10-31] MEDS ORDERED: Ringers Lactate 1,000 ML IV ONE (10:41)
[2022-10-31] MEDS ORDERED: BUPIVACAINE 0.5% PF 10 ML VIAL ONE (11:59)
[2022-10-31] MEDS ORDERED: ONDANSETRON 4 MG/2 ML VIAL ONE (12:03)
[2022-10-31] MEDS ORDERED: FENTANYL CITR 100 MCG/2 ML ONE (12:03)
[2022-10-31] MEDS ORDERED: KETOROLAC 30 MG/ML INJ ONE (12:03)
[2022-10-31] MEDS ORDERED: propofoL 200 MG/20 ML VIAL IV ONE (12:03)
[2022-10-31] MEDS ORDERED: MIDAZOLAM HCL 2 MG/2 ML INJ ONE (12:03)
[2022-10-31] MEDS ORDERED: dexAMETHasone 10 MG/ML VIAL ONE (12:03)
[2022-10-31] MEDS ORDERED: LIDOCAINE 2% MPF 5 ML VIAL ONE (12:03)
[2022-10-31 12:26] LABS: Cocaine POSITIVE (NEGATIVE)
--- NOTE | 2022-10-31 12:48 | P.BOP ---
Preoperative diagnosis: right forearm complex abscess Postoperative diagnosis: same Primary procedure: Incision and drainage of right forearm complex abscess Estimated blood loss: <10cc Specimen: culture Findings: abscess with necrotic indurated fatty tissue Anesthesia: General Complications: None Transferred to: Recovery Room Condition: Good
[2022-10-31] MEDS: FENTANYL CITR 100 MCG/2 ML ONE ×3 (13:16→13:31)
[2022-10-31] MEDS: HYDROMORPHONE HCL 2 MG/ML inj ONE ×3 (13:33→13:43)
--- NOTE | 2022-10-31 13:41 | P.PN ---
Subjective Date of Service: 10/31/22 Chief Complaint: History of IVDA/ cellulitis/ abscess of the right upper extremity No acute events overnight. She reports right upper extremity pain. The pain is well-controlled with her current regimen. She has been NPO in anticipation for incision and drainage this morning. Review of Systems 10-point ROS is otherwise unremarkable Musculoskeletal: Arm Pain (right arm, cellulitis) Physical Examination - Vital Signs Temperature: 97.5 F Blood Pressure: 112/62 Pulse: 87 Respirations: 18 Pulse Ox (%): 100 - Physical Exam General: Alert, In no apparent distress, Oriented x3 HEENT: Atraumatic, Mucous membr. moist/pink, EOMI, Sclerae nonicteric Neck: JVD not distended Respiratory: Clear to auscultation bilaterally, Normal air movement Cardiovascular: No edema, Regular rate/rhythm, Normal S1 S2, No gallops, No rubs, No murmurs Gastrointestinal: Normal bowel sounds, Soft and benign, Non-distended, No tenderness, No rebound, No guarding Musculoskeletal: No clubbing Integumentary: Erythema (with abscess over the right antecubital space) Neurological: Normal speech, Normal affect - Studies Laboratory Data (last 24 hrs) 10/31/22 03:36: Sodium 136 D, Potassium 3.9, BUN 17, Creatinine 0.48 L, Glucose 101 10/31/22 03:36: PT 10.1, INR 0.92, APTT 31.1 10/31/22 03:36: WBC 6.40, Hgb 12.6, Hct 36.7, Plt Count 237 10/30/22 15:30: Potassium Cancelled 10/30/22 15:30: Sodium 132 L, Potassium 4.0, BUN 18, Creatinine 0.73, Glucose 116 H, Magnesium 2.1 10/30/22 14:35: PT 11.1, INR 1.01 10/30/22 14:35: WBC 11.60 H, Hgb 13.3, Hct 39.2, Plt Count 266 Microbiology Data (last 24 hrs): 10/31/22 03:36 Blood - Blood Anaerobic Blood Culture - Final 10/31/22 03:43 Blood - Blood Anaerobic Blood Culture - Final 10/30/22 15:30 Blood - Blood Anaerobic Blood Culture - Final Assessment And Plan - Plan # Right Upper Extremity Purulent Cellulitis with Abscess - Does not meet sepsis criteria - General Surgery consulted and plan for I&D today with Dr. Zayas - Infectious Diseases consulted and spoke with Dr. Whiting - recommendations appreciated - Continue IV vancomycin - Confirmed with Dr. Tate the "MRSA culture positive" diagnosis in his note was a typo - Wound cultures pending - HIV screen ordered - verbal consent obtained - PRN pain control - NPO pending surgery # Substance Use Disorder (Amphetamine, Cocaine, THC) - UDS positive for amphetamines, cocaine, THC - Substance cessation counseling provided # Depression with Anxiety - Continue home citalopram, trazodone, and PRN alprazolam Lalo Power M.D.
[2022-10-31] MEDS: NA CHLORIDE 0.9% 1,000 ML IV SCH ×2 (14:00→14:53)
--- NOTE | 2022-10-31 14:53 | CON ---
Date of Consultation: 10/31/2022 Reason For Service: Abscess in the right forearm region. History Of Present Illness: This is a case of a 37-year-old patient who comes to us with cellulitis and abscess of the right forearm area. Patient is seen in the ER due to the complexity of it and see n on imaging. Surgical consult was obtained for drainage. Patient denies any trauma in that region. She denies any dysuria, hematochezia, melena. Denies any recent traveling out of the country. Den ies any family member sick at home. Denies IV drug use. Allergies: NONE. Past Medical History: Anxiety and GERD. Past Surgical History: Include tubal ligation. Family History: Noncontributory. Social History: She does not drink. She does not use alcohol. Physical Examination: General: Patient is awake and alert. HEENT: Pupils are equal and reactive. Anicteric. Neck: Supple. Chest: Clear. Heart: S1, S2. Abdomen: Soft and depressible. Extremities: Good capillary refill. Over the proximal and ventral forearm region, patient has an in duration, fluctuance, and abscess. Just near the area of blood vessels. From the ER standpoint, we noticed when she came, she acknowledged the use of IV drug abuse in the past. Good peripheral pulses present. Laboratory Data: Blood work shows WBC count of 11, hemoglobin of 13, and platelets of 266. INR is 1 .01. Potassium 4.0, creatinine is 0.73. Ultrasound of the extremity shows what looks and advance ph legmon in that region and obviously is near blood vessels. Venous studies of the same extremity show s no evidence of right upper extremity DVTs. Forearm x-rays shows soft tissue swelling. No bony inj uries. Assessment: This is a 37-year-old patient comes to us with an abscess on the right forearm region ne ar the blood vessels. She has presented with history of IV drug abuse in the past. We explained to her the importance of looking for help in that sense since this is in a particular area where the blo od vessels are in the antecubital region and that may damage to blood vessel. She has a phlegmon. S he has obvious cellulitis in that area and abscess. Nonpulsatile at this moment, so hopefully it is not an abscess and is not a combination with that and vascular problems. In that case, we might have to address the issue accordingly. She understands the importance of compliance with antibiotics and dressing changes after. She was booked in OR. LENARD/CORI Voice ID: [id number] Report ID: [id number]
--- NOTE | 2022-10-31 18:41 | EKG ---
Test Date: 2022-10-30 Test Time: 14:41:02 Turner Machine Operator: FRANKIE MEASUREMENT RESULTS: Intervals: Rate: 114 SC: 158 QRSD: 88 QT: 332 QTc: 457 [place]: P: 80 SC: 158 QRS: 34 T: 61 INTERPRETIVE STATEMENTS: Sinus tachycardia Left atrial enlargement Borderline ECG Compared to ECG 03/14/2022 22:58:44 Atrial abnormality now present Sinus rhythm no longer present Myocardial infarct finding no longer present Electronically Signed On 10-31-22 18:39:03 SCRUM COACH by Saurav Rios
[2022-10-31] MEDS: CODEINE 30MG/APAP 300MG TAB PO PRN (20:22)
[2022-10-31] MEDS: TRAZODONE 50 MG TABLET PO SCH (20:22)
[2022-10-31] MEDS: MORPHINE 2 MG/ML SYR IV PRN (22:22)
--- NOTE | 2022-11-01 04:20 | OP ---
Date of Procedure: 10/31/2022 Surgeon: Otilio Zayas MD Preoperative Diagnoses: Right forearm cellulitis and abscess. Postoperative Diagnoses: Right forearm cellulitis and abscess. Procedure: Incision and drainage of right forearm complex abscess about 5 x 5 cm. Anesthesia: General plus local. Estimated Blood Loss: Less than 10 cc. Findings: The patient has multiple loculated abscess in that region with some evidence of some fat n ecrosis. The etiology of that is unknown. The area was debrided. Complications: None. Packing: Iodoform one quarter of an inch. Indication: This is a case of a female who comes to us with a forearm abscess. Apparently, she has a history of IV drug abuse. Not sure if this is related to it or infiltration of any substance, but she developed an abscess on the antecubital region very close to the blood vessel, so ER asked us to do incision and drainage under anesthesia with benefits, alternatives, and risks fully explained to t he patient including, but not limited to infection, bleeding, damage to adjacent structures, anesthes ia complication, nonhealing wound, FL, and . She also understands this may not relieve any symp toms. She might need more than one surgical intervention. She understood, signed the consent. Description Of Procedure: The patient was brought to the operating room, placed in supine position. Anesthesia was induced without complication. Previously, we marked the area with the patient. We m ramu an incision in the center. We have to remember that this is a complex abscess deep inside, so we were always aware of the blood vessels present in that area. So, we were able to obtain access to t he cavity and obtain purulent discharge. There was some induration of the fat, probably part of the fat necrosis. Some of that area was removed today. The area was irrigated. All loculations were ex plored open and then we packed those areas with iodoform quarter of an inch. Patient tolerated the p rocedure well. No bleeding. Patient was sent to recovery in stable condition. LENARD/CORI Voice ID: [id number] Report ID: [id number]
[2022-11-01 04:40] LABS: Absolute Lymphocytes (CBC) 0.5 K/uL (0.7-4.9); Hematocrit 33.7 % (36.0-45.0); Lymphocytes % 6.1 % (15.3-44.8); MCV 89.8 fL (80-100); MPV 7.3 fL (7.6-11.3); RBC Red Blood Cell Count 3.75 M/uL (3.86-4.86)
[2022-11-01 04:51] LABS: ALT/SGPT 19 U/L (13-56); AST/SGOT 11 U/L (15-37); Albumin 2.9 g/dL (3.4-5.0); Alkaline Phosphatase 60 U/L (45-117); BUN Blood Urea Nitrogen 15 mg/dL (7-18); Bicarbonate 24 mmol/L (21-32); Glomerular Filtration Rate 124 ml/min (=/>90); Glucose Level 167 mg/dL (74-106); Potassium 4.4 mmol/L (3.5-5.1); Protein, Total 6.2 g/dL (6.4-8.2); Sodium Level 135 mmol/L (136-145)
[2022-11-01 04:53] LABS: Bilirubin Total < 0.1 mg/dL (0.2-1.0)
[2022-11-01 05:20] LABS: Blood Morphology Comment NOT SEEN (NOT SEEN); Platelet Estimate ADEQ
[2022-11-01] MEDS: VANCOMYCIN 1 GM in NA CHLORIDE 0.9% 250 ML IVPB SCH (05:45)
[2022-11-01] MEDS: CODEINE 30MG/APAP 300MG TAB PO PRN (05:46)
[2022-11-01] MEDS: NA CHLORIDE 0.9% 1,000 ML IV SCH ×3 (05:48→20:36)
[2022-11-01 06:00] LABS: Hepatitis B Core IgM Nonreactive (Nonreactive); Hepatitis B surface AG Interp. Nonreactive (Nonreactive); Hepatitis C Virus Ab Nonreactive (Nonreactive)
[2022-11-01] MEDS: INSULIN -REGULAR HUMAN 50 UNIT/0.5 ML ML SQ SCH ×2 (07:30→11:30)
[2022-11-01] MEDS: CITALOPRAM 10 MG TABLET PO SCH (08:06)
[2022-11-01] MEDS: MORPHINE 2 MG/ML SYR IV PRN ×2 (08:07→15:10)
--- NOTE | 2022-11-01 14:17 | PN ---
Date of Progress Note: 11/01/2022 Reason For Service: Status post I and D of right forearm abscess. Subjective: The patient is doing well. She is in good spirits. No nausea. No vomiting. Objective: Chest: Clear. Abdomen: Soft and depressible. Extremity: Good capillary refill. Intact surgical site. Plan: Follow up cultures obviously, wet-to-dry dressing daily. We advised once again to trying to c onsider possible case scenarios that may bring her to this situation and she wished 1 may be causing this abscess in that region and advised her the importance of being careful in the future not to go i nto the same process. With that in mind, wet-to-dry dressing will do in the meantime and we would li [facility]. LENARD/CORI Voice ID: [id number] Report ID: [id number]
[2022-11-01] MEDS: ALPRAZOLAM 0.5 MG TABLET PO PRN (15:54)
[2022-11-01] MEDS: VANCOMYCIN 1.25 GM in NA CHLORIDE 0.9% 250 ML IVPB SCH (16:26)
[2022-11-01] MEDS: HYDROCODONE/APAP 5/325 MG TAB PO PRN ×2 (16:30→21:30)
--- NOTE | 2022-11-01 19:55 | P.PN ---
Subjective Date of Service: 11/01/22 Chief Complaint: History of IVDA/ cellulitis/ abscess of the right upper extremity POD # 1 from incision and drainage of RUE abscess. She reports that her pain is well controlled. Per Dr. Whiting, awaiting culture results prior to discharge. Review of Systems 10-point ROS is otherwise unremarkable Musculoskeletal: Arm Pain (RUE pain, improved) Physical Examination - Vital Signs Temperature: 97.7 F Blood Pressure: 172/99 Pulse: 94 Respirations: 16 Pulse Ox (%): 99 - Studies Microbiology Data (last 24 hrs): 10/31/22 03:43 Blood - Blood Anaerobic Blood Culture - Final 10/31/22 03:36 Blood - Blood Anaerobic Blood Culture - Final 10/30/22 15:30 Blood - Blood Anaerobic Blood Culture - Final Assessment And Plan - Plan - Physical Exam General: Alert, Oriented x3 HEENT: Atraumatic, Sclerae nonicteric Neck: JVD not distended Respiratory: Clear to auscultation bilaterally, Normal air movement Cardiovascular: No edema, Regular rate/rhythm, No murmurs Gastrointestinal: Normal bowel sounds, Soft, Non-distended, No tenderness Musculoskeletal: No clubbing Integumentary: Erythema (right upper extremity wound is covered clean surgical dressing) Neurological: Normal speech, Normal affect # Right Upper Extremity Purulent Cellulitis with Abscess - Does not meet sepsis criteria - General Surgery consulted and plan for I&D yesterday with Dr. Zayas - Infectious Diseases consulted and spoke with Dr. Whiting - recommendations appreciated - Continue IV vancomycin - Confirmed with Dr. Tate the "MRSA culture positive" diagnosis in his note was a typo - Wound cultures pending - HIV screen - negative - PRN pain control # Substance Use Disorder (Amphetamine, Cocaine, THC) - UDS positive for amphetamines, cocaine, THC - Substance cessation counseling provided # Depression with Anxiety - Continue home citalopram, trazodone, and PRN alprazolam Lalo Power M.D.
[2022-11-01] MEDS: TRAZODONE 50 MG TABLET PO SCH (20:35)
[2022-11-02 00:37] VITALS: O2SAT 97
[2022-11-02] MEDS: VANCOMYCIN 1.25 GM in NA CHLORIDE 0.9% 250 ML IVPB SCH (04:59)
[2022-11-02] MEDS: HYDROCODONE/APAP 5/325 MG TAB PO PRN (05:00)
[2022-11-02] MEDS: NA CHLORIDE 0.9% 1,000 ML IV SCH (05:02)
[2022-11-02] MEDS: ALPRAZOLAM 0.5 MG TABLET PO PRN (05:08)
[2022-11-02 05:50] VITALS: BP 157/85; TEMP 97.5
--- NOTE | 2022-11-02 08:18 | P.PN ---
Subjective Date of Service: 11/02/22 Chief Complaint: History of IVDA/ cellulitis/ abscess of the right upper extremity Patient was d/c prior the ID visit. Physical Examination - Vital Signs Temperature: 97.5 F Blood Pressure: 157/85 Pulse: 72 Respirations: 18 Pulse Ox (%): 99 - Studies current medications Hydrocodone Bitart/Acetaminophen (Hydrocodone/Apap 5/325 Mg Tab) 1 tab PO Q6H PRN PRN Reason: Pain scale 5-7 (Moderate) Last Admin: 11/02/22 05:00 Dose: 1 tab Alprazolam (Alprazolam 0.5 Mg Tablet) 0.5 mg PO DAILY PRN PRN Reason: ANXIETY Last Admin: 11/02/22 05:08 Dose: 0.5 mg Citalopram Hydrobromide (Citalopram 10 Mg Tablet) 30 mg PO DAILY [facility] Last Admin: 11/01/22 08:06 Dose: 30 mg Sodium Chloride (Ns 1000 Ml Ivbag) 1,000 mls @ 100 mls/hr IV .Q10H [facility] Last Admin: 11/02/22 05:02 Dose: 1,000 mls Vancomycin HCl 1.25 gm/ Sodium (Chloride) 250 mls @ 125 mls/hr IVPB Q12H [facility] Last Admin: 11/02/22 04:59 Dose: 250 mls Ondansetron HCl (Ondansetron 4 Mg/2 Ml Vial) 4 mg IV Q4H PRN PRN Reason: NAUSEA / VOMITING Sodium Chloride (Flush Normal Saline 10 Ml) 10 ml IV BID [facility] Last Admin: 11/01/22 20:45 Dose: 10 ml Trazodone HCl (Trazodone 50 Mg Tablet) 25 mg PO BEDTIME [facility] Last Admin: 11/01/22 20:35 Dose: 25 mg Microbiology Data (last 24 hrs): Microbiology 10/31/22 03:43 Blood - Blood Aerobic Blood Culture - Preliminary No growth in 24 hours. 10/31/22 03:43 Blood - Blood Anaerobic Blood Culture - Final 10/31/22 03:36 Blood - Blood Aerobic Blood Culture - Preliminary No growth in 24 hours. 10/31/22 03:36 Blood - Blood Anaerobic Blood Culture - Final 10/30/22 15:30 Blood - Blood Aerobic Blood Culture - Preliminary No growth in 24 hours. 10/30/22 15:30 Blood - Blood Anaerobic Blood Culture - Final 10/30/22 15:22 Blood - Blood Aerobic Blood Culture - Preliminary No growth in 24 hours. 10/30/22 15:22 Blood - Blood Anaerobic Blood Culture - Preliminary No growth in 24 hours. Assessment And Plan - Current Problems (Diagnosis) (1) Cellulitis and abscess of upper extremity Plan: I&D by General Surgery today Cultures: - 10/31 Right arm wound: Anaerobic pending - 10/31 and BC: Negative Antibiotics: - Current on IV Vancomycin (10/30- ) Recommendations: - Continue IV Vancomycin - ID will recommend the antibiotics drug of choice when cultures are available 10/31 Dr. Zayas performed incision and drainage of right forearm complex abscess about 5 x 5 cm: Finding - multiple loculated abscess in that region with some evidence of some fat necrosis (debrided) - Plan - Right upper extremity cellulitis with abscess s/p I&D; on IV antibiotics - MRSA (methicillin resistant staph aureus) culture positive - Substance abuse - Depression - ADD - GERD ID will monitor the patient closely for signs of infection with fever and WBC trends Case has been discussed with Dr. Whiting, N
--- NOTE | 2022-11-02 08:58 | P.DS ---
Admission Date: 10/31/22 Discharge Date: 11/02/22 Disposition: ROUTINE DISCHARGE Discharge Condition: GOOD Reason for Admission: History of IVDA/ cellulitis/ abscess of the right upper extremity Consultations: 1. General Surgery 2. Infectious Diseases Procedures: - 10/31/2022 - Incision and Drainage of Right Forearm Complex Abscess Hospital Course: DIAGNOSES: # Right Upper Extremity Purulent Cellulitis with Abscess # Substance Use Disorder (Amphetamine, Cocaine, THC) # Depression with Anxiety HOSPITAL COURSE: Ms. Tika Vazquez is a 37 year old female with a past medical history significant for substance use disorder, depression, and anxiety who was admitted to the [facility] on 10/30/2022 for right upper extremity cellulitis. She was admitted to the Medicine service. Upon further evaluation, she was found to have right upper extremity cellulitis with an abscess at the site of IV drug use. An ultrasound revealed, "heterogeneous irregular collection with internal vascularized hypoechoic tissue present just superficial to the radial artery, measuring 9 millimeter in greatest dimension. This is suggestive of an advanced phlegmon or early abscess." General Surgery was consulted and she was evaluated by Dr. Zayas. She underwent incision and drainage of the abscess, without any apparent complications. She tolerated the procedure well, and he has cleared her for discharge from his standpoint. Infectious Diseases was also consulted and she was evaluated by Dr. Whiting. He has cleared her for discharge with a two week course of sulfamethoxazole-trimethoprim. On 11/02/2022, she was seen on morning rounds and deemed medically stable for discharge. She was discharged with instructions to schedule follow-up appointments with her PCP and with General Surgery (Dr. Zayas). She was provided prescriptions for sulfamethoxazole-trimethoprim and hydrocodone-acetaminophen. She was given the opportunity to ask questions and reported no further questions. Furthermore, all questions were answered to the best of my ability. Prior to the controlled substance prescription, a PDMP review was conducted. Over the last 2 years, she has received 1 controlled substance from 1 provider to 1 pharmacy. Her opioid overdose risk score is 190. A copy of this discharge summary will be sent to the above providers to facilitate continuity of care. Today, I personally spent 25 minutes on her case, of which greater than 50% of the time was spent in patient education, counseling, and coordination of care as described above. - Physical Exam General: Alert, Oriented x3 HEENT: Atraumatic, Sclerae nonicteric Neck: JVD not distended Respiratory: Clear to auscultation bilaterally, Normal air movement Cardiovascular: No edema, Regular rate/rhythm, No murmurs Gastrointestinal: Normal bowel sounds, Soft, Non-distended, No tenderness Musculoskeletal: No clubbing Integumentary: Erythema (right upper extremity wound is covered clean surgical dressing) Neurological: Normal speech, Normal affect Vital Signs/Physical Exam: Temp Pulse Resp BP Pulse Ox 97.5 F 72 18 157/85 H 99 11/02/22 08:19 11/02/22 08:19 11/02/22 08:19 11/02/22 08:19 11/02/22 08:19 Laboratory Data at Discharge: WBC 8.30 K/uL (4.3-10.9) 11/01/22 04:20 Hgb 11.5 g/dL (12.0-15.0) L D 11/01/22 04:20 Hct 33.7 % (36.0-45.0) L 11/01/22 04:20 Plt Count 216 K/uL (152-406) 11/01/22 04:20 PT 10.1 SECONDS (9.5-12.5) 10/31/22 03:36 INR 0.92 10/31/22 03:36 APTT 31.1 SECONDS (24.3-36.9) 10/31/22 03:36 Sodium 135 mmol/L (136-145) L 11/01/22 04:20 Potassium 4.4 mmol/L (3.5-5.1) 11/01/22 04:20 BUN 15 mg/dL (7-18) 11/01/22 04:20 Creatinine 0.49 mg/dL (0.55-1.02) L 11/01/22 04:20 Glucose 167 mg/dL (74-106) H 11/01/22 04:20 Magnesium 2.1 10/30/22 15:30 Total Bilirubin < 0.1 mg/dL (0.2-1.0) L 11/01/22 04:20 AST 11 U/L (15-37) L 11/01/22 04:20 ALT 19 U/L (13-56) 11/01/22 04:20 Alkaline Phosphatase 60 U/L (45-117) 11/01/22 04:20 Home Medications: Alprazolam [Xanax] 0.5 mg PO DAILY PRN 11/21/19 Bupropion HCl [Wellbutrin] 75 mg PO BID 11/21/19 Citalopram [Celexa*] 30 mg PO DAILY 11/21/19 Dextroamphetamine/Amphetamine [Adderall 10 mg Tablet] 10 mg PO DAILY 11/21/19 Omeprazole [Prilosec] 40 mg PO DAILY 11/21/19 Pravastatin Sodium 10 mg PO DAILY 11/21/19 Trazodone [Desyrel*] 25 mg PO DAILY 11/21/19 Hydrocodone 5/APAP 325 [Hext 5/325] 1 tab PO Q6H PRN 3 Days #10 tab 11/02/22 Smz./Tmp. [Bactrim Ds 800 MG/160 MG] 1 tab PO BID 14 Days #28 tab 11/02/22 New Medications: Smz./Tmp. [Bactrim Ds 800 MG/160 MG] 1 tab PO BID 14 Days #28 tab Hydrocodone 5/APAP 325 [Hext 5/325] 1 tab PO Q6H PRN 3 Days #10 tab PRN Reason: Pain Physician Discharge Instructions: 1. Please call and schedule a follow-up appointment with your PCP in 3-5 days 2. Please call and schedule a follow-up appointment with General Surgery (Dr. Zayas) in 3-5 days Diet: AHA Activity: Ad betty Followup: Otilio Zayas MD [ACTIVE - CAN ADMIT] - (Call to schedule appointment.) Time spent managing pt's care (in minutes): 25
[2022-11-02] MEDS: CITALOPRAM 10 MG TABLET PO SCH (09:14)
== END 2022-11-02 10:23 | disposition home or self-care (01) | DRG 868 ==
LOC: ER 13:31 → ERHOLD 17:22 → 2ND 19:45 → OBSVTOIN 10-31 12:17
PROVIDERS: ADMIT Hospitalist; ATTEND Internal Medicine
PROC: 0J9G0ZZ Drainage of Right Lower Arm Subcutaneous Tissue and Fascia, Open Approach (ICD-10-PCS; principal; 2022-10-31 12:15)
DX: T80.29XA Infection following other infusion, transfusion and therapeutic injection, initial encounter (principal); L02.413 Cutaneous abscess of right upper limb; L03.113 Cellulitis of right upper limb; K21.9 Gastro-esophageal reflux disease without esophagitis; F98.8 Other specified behavioral and emotional disorders with onset usually occurring in childhood and adolescence; F15.10 Other stimulant abuse, uncomplicated; F41.8 Other specified anxiety disorders; F14.10 Cocaine abuse, uncomplicated; F12.10 Cannabis abuse, uncomplicated; F17.200 Nicotine dependence, unspecified, uncomplicated; B95.62 Methicillin resistant Staphylococcus aureus infection as the cause of diseases classified elsewhere; Z59.00 Homelessness unspecified; Z98.51 Tubal ligation status; Z79.899 Other long term (current) drug therapy; Z20.822 Contact with and (suspected) exposure to COVID-19
CPT/HCPCS: 36415; 76882; 80048; 80053; 80074; 80202; 80307; 81003; 81025; 82947; 83605; 83735; 84145; 85025; 85610; 85730; 87040; 87070; 87075; 87205; 87389; 87811; 93005; 93971; 96374; 96375; 99285; G0378; J1100; J1170; J2001; J2250; J2270; J2405; J2704; J3010; J3370; J7030; J7050; J7120